=== PATIENT | female | born 1935 | race Caucasian/White ===

== ENCOUNTER 2022-08-12 15:45 | Inpatient (IN) | payer MEDICARE, MEDICAID ==
[~2022-08-12] VITALS: Ht 170 cm; Wt 41.2 kg
[2022-08-12] MEDS ORDERED: CEFEPIME INJECTION 1,000 MG in NS (IVPB) 50 ML IV ONE (16:00)
[2022-08-12] MEDS ORDERED: LIDOCAINE UROJET 2% GEL 10 ML PKG TOP ONE (16:00)
[2022-08-12] MEDS ORDERED: LACTATED RINGERS 1,000 ML IV ONE (16:00)
--- NOTE | 2022-08-12 16:09 | ED General ---
General Chief Complaint: Altered Mental Status Stated Complaint: AMS Nursing Triage Note: PT ARRIVED PER EMS, PT WOULD NOT ANSWER DOOR, KNOCK DOWN BY MAINTANANCE MAN. PT WAS CONFUSED UPON EMS ARRIVAL, PT O2 SAT 88% UPON EMS ARRIVAL. PT MORE ALERT UPON ARRIVAL TO ED. FSBS 123 FOR EMS. PT HAS COURSE COUGH AND SOME WHEEZING NOTED. PT IS A DAILY SMOKER Source of Information: EMS Exam Limitations: Other (PT IS CONFUSED AND UNABLE TO GIVE MUCH INFORMATION) History of Present Illness Date Seen by Provider: Aug 12, 2022 Time Seen by Provider: 15:40 Initial Comments PT ARRIVES VIA EMS FROM HOME AT [facility] PT LIVES ALONE EMS REPORT THAT THEY WERE CALLED TO [facility]ENCE FOR PT WITH ALTERED MENTAL STATUS. ON THEIR ARRIVAL, PT WAS NOT ABLE TO ANSWER ANY QUESTIONS AND WAS NOT REALLY TALKING ON THEIR ARRIVAL PER EMS, THE SCRAP PICKER AT PT'S COMPLEX, KNOCKED ON PT'S DOOR AND SHE WOULD NOT ANSWER. THEY EVENTUALLY WERE ABLE TO KNOCK DOWN THE DOOR, AND FOUND PT WITH VERY ALTERED MENTATION--CONFUSED, NOT TALKING, NOT FOLLOWING COMMANDS. LAST KNOWN WELL TIME IS UNKNOWN. EMS REPORT THAT O2 SAT WAS 88% ON ROOM AIR, AND DIPPED DOWN TO 77% AT ONE POINT VITALS FOR EMS: BP 99/58, PULSE 80 ACCUCHECK 123 EMS REPORT THEY DID NOT SEE ANY MEDICATIONS IN THE HOME, AND THE HOME WAS WELL KEPT. EMS REPORT THAT PT COULD NOT STATE HER NAME OR BIRTHDATE, OR TIME OR PLACE WHEN THEY ARRIVED AT SCENE. ON ARRIVAL HERE, PT WAS PLACED ON O2, AND SHE DID SEEM TO HAVE SOME IMPROVEMENT IN MENTATION, AND IS NOW TALKING SHE IS ABLE TO STATE HER NAME AND BIRTHDATE KNOWS SHE LIVES AT [facility]. PT ARRIVES FULLY CLOTHED WITH A BRIEF IN PLACE, BUT HAS DRIED FECES AND URINE ALL IN ER GENITAL AND BUTTOCKS AREAS AND DOWN HER LEGS, ON HER CLOTHING, AND IS WEARING A NIGHTGOWN THAT IS COVERED IN URINE AND FECES, OVER HER PANTS AND ONLY PULLED UP TO HER WAIST LIKE A SKIRT/SLIP. SHE IS NOTED TO HAVE A FREQUENT LOOSE COUGH ON ARRIVAL. SHE IS NOT ABLE TO STATE ANY EVENTS OR WHY SHE IS HERE OR GIVE ANY MEDICAL INFORMATION THERE ARE NO PRIOR VISITS HERE UNDER THE GIVEN NAME AND DATE. Allergies and Home Medications Allergies Coded Allergies: No Allergy Information Available (Unverified , 08/12/22) Review of Systems Review of Systems Constitutional: see HPI Physical Exam Vital Signs Vital Signs - First Documented 08/12/22 15:45 Pulse 90 Resp 18 B/P (MAP) 116/73 (87) O2 Delivery Nasal Cannula O2 Flow Rate 2.00 Capillary Refill : Less Than 3 Seconds Height, Weight, BMI Height: '" Weight: lbs. oz. kg; 21.00 BMI Method: General Appearance: No Apparent Distress, Cachetic HEENT: PERRL/EOMI Respiratory: No Accessory Muscle Use, No Respiratory Distress, Other (DIFFUSE SCATTERED RHONCHI, BUT NOT DYSPNEIC) Cardiovascular: Regular Rate, Rhythm, No JVD, No Murmur Gastrointestinal: Non Tender, Soft Extremity: Normal Capillary Refill, Normal Range of Motion, Non Tender, No Pedal Edema Neurologic/Psychiatric: Alert, No Motor/Sensory Deficits (MOVES ALL EXTREMITIES EQUALLY, BUT DOES HAVE SOME DIFFICULTY FOLLOWING EVEN SIMPLE COMMANDS. ), Other (ORIENTED TO SELF, CONFUSED TO DATE/TIME, SITUATION, PLACE. ) Skin: Normal Color, Warm/Dry Focused Exam Lactate Level 08/12/22 16:05: Lactic Acid Level 1.91 Lactic Acid Level Laboratory Tests Test 08/12/22 16:05 Lactic Acid Level 1.91 MMOL/L (0.50-2.00) Progress/Results/Core Measures Suspected Sepsis SIRS Temperature: Pulse: 90 Respiratory Rate: 18 Laboratory Tests 08/12/22 16:05: White Blood Count 8.1 Blood Pressure 116 /73 Mean: 87 08/12/22 16:05: Lactic Acid Level 1.91 Laboratory Tests 08/12/22 16:05: Creatinine 1.05, INR Comment 1.0, Platelet Count 238, Total Bilirubin 0.6 Results/Orders Lab Results Laboratory Tests Test 08/12/22 16:01 08/12/22 16:03 08/12/22 16:05 08/12/22 16:35 Range/Units Glucometer 115 H 70-110 MG/DL Influenza Type A (RT-PCR) Not Detected Not Detecte Influenza Type B (RT-PCR) Not Detected Not Detecte SARS-CoV-2 RNA (RT-PCR) Detected H Not Detecte White Blood Count 8.1 4.3-11.0 10^3/uL Red Blood Count 4.55 3.80-5.11 10^6/uL Hemoglobin 13.9 11.5-16.0 g/dL Hematocrit 41 35-52 % Mean Corpuscular Volume 90 80-99 fL Mean Corpuscular Hemoglobin 31 25-34 pg Mean Corpuscular Hemoglobin Concent 34 32-36 g/dL Red Cell Distribution Width 14.4 10.0-14.5 % Platelet Count 238 130-400 10^3/uL Mean Platelet Volume 10.1 9.0-12.2 fL Immature Granulocyte % (Auto) 1 % Neutrophils (%) (Auto) 71 42-75 % Lymphocytes (%) (Auto) 14 12-44 % Monocytes (%) (Auto) 13 H 0-12 % Eosinophils (%) (Auto) 0 0-10 % Basophils (%) (Auto) 0 0-10 % Neutrophils # (Auto) 5.8 1.8-7.8 10^3/uL Lymphocytes # (Auto) 1.2 1.0-4.0 10^3/uL Monocytes # (Auto) 1.1 H 0.0-1.0 10^3/uL Eosinophils # (Auto) 0.0 0.0-0.3 10^3/uL Basophils # (Auto) 0.0 0.0-0.1 10^3/uL Immature Granulocyte # (Auto) 0.1 0.0-0.1 10^3/uL Erythrocyte Sedimentation Rate 79 H 0-30 MM/HR Prothrombin Time 13.9 12.2-14.7 SEC INR Comment 1.0 0.8-1.4 Activated Partial Thromboplast Time 33 24-35 SEC D-Dimer 2.70 H 0.00-0.49 UG/ML Sodium Level 143 135-145 MMOL/L Potassium Level 4.0 3.6-5.0 MMOL/L Chloride Level 106 98-107 MMOL/L Carbon Dioxide Level 23 21-32 MMOL/L Anion Gap 14 5-14 MMOL/L Blood Urea Nitrogen 35 H 7-18 MG/DL Creatinine 1.05 0.60-1.30 MG/DL Estimat Glomerular Filtration Rate 51 BUN/Creatinine Ratio 33 Glucose Level 115 H 70-105 MG/DL Lactic Acid Level 1.91 0.50-2.00 MMOL/L Calcium Level 9.7 8.5-10.1 MG/DL Corrected Calcium 9.8 8.5-10.1 MG/DL Magnesium Level 2.4 1.6-2.4 MG/DL Total Bilirubin 0.6 0.1-1.0 MG/DL Aspartate Amino Transf (AST/SGOT) 30 5-34 U/L Alanine Aminotransferase (ALT/SGPT) 22 0-55 U/L Alkaline Phosphatase 49 40-136 U/L Total Creatine Kinase 30 29-168 U/L Creatine Kinase MB 1.1 <6.6 NG/ML Myoglobin 106.9 H 10.0-92.0 NG/ML C-Reactive Protein High Sensitivity 23.02 H 0.00-0.50 MG/DL B-Type Natriuretic Peptide 173.8 H <100.0 PG/ML Total Protein 8.1 6.4-8.2 GM/DL Albumin 3.9 3.2-4.5 GM/DL Amylase Level 72 25-125 U/L Lipase 51 8-78 U/L Free Thyroxine 1.05 0.70-1.48 NG/DL TSH [place] Testing 0.12 L 0.35-4.94 UIU/ML Urine Color YELLOW Urine Clarity CLEAR Urine pH 6.0 5-9 Urine Specific [place] 1.025 H 1.016-1.022 Urine Protein 2+ H NEGATIVE Urine Glucose (UA) NEGATIVE NEGATIVE Urine Ketones NEGATIVE NEGATIVE Urine Nitrite NEGATIVE NEGATIVE Urine Bilirubin NEGATIVE NEGATIVE Urine Urobilinogen 0.2 < = 1.0 MG/DL Urine Leukocyte Esterase NEGATIVE NEGATIVE Urine RBC (Auto) 1+ H NEGATIVE Urine RBC NONE /HPF Urine WBC NONE /HPF Urine Squamous Epithelial Cells RARE /HPF Urine Crystals NONE /LPF Urine Bacteria NEGATIVE /HPF Urine Casts PRESENT /LPF Urine Hyaline Casts RARE /LPF Urine Mucus NEGATIVE /LPF Urine Culture Indicated CULTURE PENDING Test 08/12/22 16:55 Range/Units Ammonia 17 11-32 UMOL/L My Orders Orders - EDWIN JONES DO Accucheck Stat ONCE (08/12/22 15:49) Ed Iv/Invasive Line Start (08/12/22 15:49) Ekg Tracing (08/12/22 15:49) Catheter(Urinary) Insert & Ass 03,15 (08/12/22 15:49) O2 (08/12/22 15:49) Monitor-Rhythm Ecg Trace Only (08/12/22 15:49) Ct Head Wo-R/O Stroke (08/12/22 15:49) Chest 1 View, Ap/Pa Only (08/12/22 15:49) Amylase (08/12/22 15:49) Arterial Blood Gas (08/12/22 15:49) Bnp Jon (08/12/22 15:49) Cbc With Automated Diff (08/12/22 15:49) Comprehensive Metabolic Panel (08/12/22 15:49) Creatine Kinase (08/12/22 15:49) Creatine Kinase Mb (08/12/22 15:49) Hs C Reactive Protein (08/12/22 15:49) Fibrin Degradation Products (08/12/22 15:49) Lactic Acid Analyzer (08/12/22 15:49) Lipase (08/12/22 15:49) Magnesium (08/12/22 15:49) Protime With Inr (08/12/22 15:49) Partial Thromboplastin Time (08/12/22 15:49) Thyroid Analyzer (08/12/22 15:49) Ua Culture If Indicated (08/12/22 15:49) Blood Culture (08/12/22 15:49) Erythrocyte Sedimentation Rate (08/12/22 15:49) Myoglobin Serum (08/12/22 15:49) Troponin I Wilkinson (08/12/22 15:49) Ed Iv/Invasive Line Start (08/12/22 15:49) Lactated Ringers (Lr 1000 Ml Iv Solution (08/12/22 16:00) Covid 19 Inhouse Test (08/12/22 15:49) Sputum Culture (08/12/22 15:49) Urine Culture (08/12/22 15:49) Ed Iv/Invasive Line Start (08/12/22 15:49) Ed Iv/Invasive Line Start (08/12/22 15:49) Vital Signs Adult Sepsis Patie Q15M (08/12/22 15:49) O2 (08/12/22 15:49) Remove Rings In Anticipation O (08/12/22 15:49) Cefepime Injection (Maxipime Injection) (08/12/22 16:00) Catheter(Urinary) Insert & Ass 03,15 (08/12/22 15:49) Ekg Tracing (08/12/22 15:49) Nothing By Mouth (08/12/22 Dinner) Accucheck Stat ONCE (08/12/22 15:49) Ed Iv/Invasive Line Start (08/12/22 15:49) Ed Iv/Invasive Line Start (08/12/22 15:49) Vital Signs Stroke Patient Q15M (08/12/22 15:49) O2 (08/12/22 15:49) Intake & Output 06,14,22 (08/12/22 15:49) Dysphagia Screening Tool [id number] (08/12/22 15:49) Lipid Panel (08/13/22 06:00) Lidocaine 2% (Urojet) (Xylocaine Urojet) (08/12/22 16:00) Influenza A And B By Pcr (08/12/22 15:49) Isolation Central Supply Req (08/12/22 15:49) Ammonia (08/12/22 16:32) Ct Lani Chest/Noang Abd-Pelv W (08/12/22 16:57) Dexamethasone Injection (Decadron Inje (08/12/22 17:15) Free T4 (Free Thyroxine) (08/12/22 16:05) Iohexol Injection (Omnipaque 350 Mg/Ml 1 (08/12/22 17:45) Ns (Ivpb) (Sodium Chloride 0.9% Ivpb Bag (08/12/22 17:45) Ed Admission (Communication) (08/12/22 18:01) Medications Given in ED Current Medications Medications Dose Ordered Sig/Juan F Route Start Time Stop Time Status Last Admin Dose Admin Cefepime HCl 1000 mg/Sodium Chloride 50 ml @ 100 mls/hr ONCE ONCE IV 08/12/22 16:00 08/12/22 16:29 DC 08/12/22 16:35 100 MLS/HR Iohexol 100 ml ONCE ONCE IV 08/12/22 17:45 08/12/22 17:46 DC 08/12/22 17:40 70 ML Lactated Ringer's 1,000 ml @ 0 mls/hr Q0M ONCE IV 08/12/22 16:00 08/12/22 16:01 DC 08/12/22 16:24 1,000 MLS/HR Sodium Chloride 100 ml ONCE ONCE IV 08/12/22 17:45 08/12/22 17:46 DC 08/12/22 17:40 70 ML Vital Signs/I&O 08/12/22 08/12/22 15:45 15:45 Pulse 90 Resp 18 B/P (MAP) 116/73 (87) O2 Delivery Nasal Cannula O2 Flow Rate 2.00 Capillary Refill : Less Than 3 Seconds Blood Pressure Mean: 87 Progress Note : Progress Note PPE WORN COVID AND FLU TESTING DONE SEPSIS PROTOCOL INITIATED STROKE PROTOCOL INITIATED UNABLE TO OBTAIN ABG'S ON MULTIPLE ATTEMPTS 1645--RN HAS ADVISED THAT FAMILY HAVE ARRIVED AND SHE HAS TALKED WITH THEM, THEY REPORT THAT SHE HAS NOT BEEN HERSELF THE LAST COUPLE OF DAYS, WITH GENERALIZED WEAKNESS, HAD DIARRHEA ONCE. THEY CHECK ON HER FREQUENTLY. SHE ADVISED THEM THAT PT WAS COVID +, AND PT COULD NOT HAVE VISITORS AT THIS TIME, PER HOSPITAL POLICY. ECG Initial ECG Impression Date: Aug 12, 2022 Initial ECG Impression Time: 16:06 Initial ECG Rate: 78 Initial ECG Rhythm: Normal Sinus (WITH MUCH ARTIFACT) Initial ECG Impression: Nonspecific Changes (ST DEPRESSION INFERIOR AND LATERAL LEADS) Initial ECG Comparisson: No Previous ECG Available Comment INTERPRETED BY ME Diagnostic Imaging Comments CXR--PER RADIOLOGIST REPORT AT 1705 FINDINGS: There are diffuse interstitial opacities throughout the lungs bilaterally. There is no pleural effusion or pneumothorax. The cardiac silhouette is mildly large. Lung volumes are mildly large. Bone density is diffusely low. There is aortic atherosclerosis. IMPRESSION: 1. Diffuse interstitial opacities in the lungs bilaterally, may be due to interstitial edema or infection. Reviewed: Reviewed by Me Departure Impression Primary Impression: COVID-19 virus infection Additional Impression: Altered mental status EDWIN JONES DO Aug 12, 2022 16:09
[2022-08-12 16:24] LABS: BASOPHILS % (AUTO) 0 % (0-10); EOSINOPHILS % (AUTO) 0 % (0-10); HEMATOCRIT 41 % (35-52); HEMOGLOBIN 13.9 g/dL (11.5-16.0); LYMPHOCYTES # (AUTO) 1.2 10^3/uL (1.0-4.0); LYMPHOCYTES % (AUTO) 14 % (12-44); MEAN CORPUSCULAR HEMOGLOBIN 31 pg (25-34); MEAN CORPUSCULAR HGB CONC 34 g/dL (32-36); MEAN CORPUSCULAR VOLUME 90 fL (80-99); MEAN PLATELET VOLUME 10.1 fL (9.0-12.2); MONOCYTES # (AUTO) 1.1 10^3/uL (0.0-1.0); MONOCYTES % (AUTO) 13 % (0-12); NEUTROPHILS # (AUTO) 5.8 10^3/uL (1.8-7.8); NEUTROPHILS % (AUTO) 71 % (42-75); PLATELET COUNT 238 10^3/uL (130-400); WHITE BLOOD COUNT 8.1 10^3/uL (4.3-11.0)
[2022-08-12 16:38] LABS: ERYTHROCYTE SEDIMENTATION RATE 79 MM/HR (0-30)
[2022-08-12 16:41] LABS: BILIRUBIN,URINE NEGATIVE (NEGATIVE); CLARITY,URINE CLEAR; COLOR,URINE YELLOW; GLUCOSE, URINE (UA) NEGATIVE (NEGATIVE); KETONES,URINE NEGATIVE (NEGATIVE); LEUKOCYTE ESTERASE ,URINE NEGATIVE (NEGATIVE); NITRITE,URINE NEGATIVE (NEGATIVE); PROTEIN,URINE 2+ (NEGATIVE)
[2022-08-12 16:43] LABS: FIBRIN DEGRADATION PRODUCTS 2.7 UG/ML (0.00-0.49); PROTHROMBIN TIME PATIENT 13.9 SEC (12.2-14.7)
[2022-08-12 16:47] LABS: ALBUMIN 3.9 GM/DL (3.2-4.5)
[2022-08-12 16:49] LABS: CALCIUM 9.7 MG/DL (8.5-10.1)
[2022-08-12 16:50] LABS: TOTAL PROTEIN 8.1 GM/DL (6.4-8.2)
[2022-08-12 16:52] LABS: BILIRUBIN,TOTAL 0.6 MG/DL (0.1-1.0)
[2022-08-12 16:53] LABS: BACTERIA,URINE NEGATIVE /HPF; HYALINE CASTS, URINE RARE /LPF; SQUAMOUS EPITHELIAL CELL,UR RARE /HPF
[2022-08-12 16:54] LABS: CREATININE SERUM 1.05 MG/DL (0.60-1.30)
[2022-08-12 16:56] LABS: MAGNESIUM 2.4 MG/DL (1.6-2.4)
--- NOTE | 2022-08-12 16:57 | Diagnostic Imaging Report ---
HISTORY: Altered mental status, cough, hypoxia. TECHNIQUE: Frontal view of the chest. COMPARISON: None. FINDINGS: There are diffuse interstitial opacities throughout the lungs bilaterally. There is no pleural effusion or pneumothorax. The cardiac silhouette is mildly large. Lung volumes are mildly large. Bone density is diffusely low. There is aortic atherosclerosis. IMPRESSION: 1. Diffuse interstitial opacities in the lungs bilaterally, may be due to interstitial edema or infection. Dictated by: Dictated on workstation # [id number]
[2022-08-12 17:05] LABS: CREATINE KINASE MB 1.1 NG/ML (<6.6)
[2022-08-12 17:18] LABS: TSH (THYROID ANALYZER) 0.12 UIU/ML (0.35-4.94)
--- NOTE | 2022-08-12 17:43 | Diagnostic Imaging Report ---
PROCEDURE: CT head wo r/o stroke. TECHNIQUE: Multiple contiguous axial images were obtained through the brain without the use of intravenous contrast. Auto Exposure Controls were utilized during the CT exam to meet ALARA standards for radiation dose reduction. INDICATION: Neurologic deficit. COMPARISON: Altered mental status. COVID positive. FINDINGS: Advanced generalized parenchymal volume loss. No intracranial hemorrhage, mass effect, hydrocephalus, or extra-axial fluid collections. No CT evidence of an acute territorial infarction. Air-fluid level in the left maxillary sinus. Mucosal thickening throughout the ethmoid sinuses. The mastoids are clear. IMPRESSION: 1. No acute intracranial CT findings. 2. Advanced generalized parenchymal volume loss. 3. Air-fluid level in the left maxillary sinus and mucosal thickening in the ethmoid sinuses suggesting acute sinusitis. Dictated by: Dictated on workstation # [id number]
[2022-08-12] MEDS ORDERED: IOHEXOL 350 MG/ML 100 ML (OMNIPAQUE 350) VIAL IV ONE (17:45)
[2022-08-12] MEDS ORDERED: NS 100 ML (IVPB) BAG IV ONE (17:45)
[2022-08-12 17:50] LABS: FREE T4 (FREE THYROXINE) 1.05 NG/DL (0.70-1.48)
--- NOTE | 2022-08-12 17:53 | Diagnostic Imaging Report ---
EXAM: CTA chest, abdomen and pelvis INDICATION: COVID+, DIARRHEA, ELEV D-DIMER, HYPOXIA Thin axial sections through the chest, abdomen and pelvis are obtained following intravenous contrast bolus. Multiplanar MIP images were reconstructed and reviewed. All CT scans use one or more of the following dose optimizing techniques: automated exposure control, MA and/or KvP adjustment based on patient size and exam type or iterative reconstruction. COMPARISON: None. FINDINGS: CTA CHEST: No pulmonary artery filling defects. Normal-caliber thoracic aorta. Normal heart size. No pericardial effusion. No mediastinal, hilar or axillary lymphadenopathy. Advanced emphysema. Dense consolidation in the right upper lobe containing air bronchograms. There is also dense consolidation in the left lung apex and left lung base. No pleural effusion or pneumothorax. No acute osseous findings. CT ABDOMEN AND PELVIS: Benign hemangioma in the right hepatic lobe measuring up to 3.4 cm. The gallbladder, pancreas, spleen, adrenals, collecting systems are negative. Urinary bladder is decompressed by Cuevas catheter. Reproductive structures are grossly negative. Small cysts in both kidneys are too small to characterize. The appendix is normal. No free intraperitoneal air or fluid. No lymphadenopathy. No evidence of bowel obstruction. No acute osseous findings. IMPRESSION: 1. No pulmonary emboli. 2. Multifocal regions of dense consolidation including the lung apices bilaterally and the left lung base. Findings are most suspicious for pneumonitis. However, malignancy cannot entirely be excluded and follow-up to resolution is recommended. 3. Advanced emphysema. 4. No acute CT findings in the abdomen or pelvis. Dictated by: Dictated on workstation # [id number]
[2022-08-12] MEDS ORDERED: CALCIUM CARBONATE 500 MG (TUMS) TAB.CHEW PO PRN (18:45)
[2022-08-12] MEDS ORDERED: ONDANSETRON 4 MG/2 ML (SDV) Z0FRAN IV PRN (18:45)
[2022-08-12] MEDS ORDERED: ENOXAPARIN 40 MG/0.4 ML (LOVENOX) SYR SC SCH (18:45)
[2022-08-12] MEDS ORDERED: ONDANSETRON 4 MG (ZOFRAN) ORAL DISSOLVE TAB PO PRN (18:45)
[2022-08-12] MEDS ORDERED: ACETAMINOPHEN 325 MG TABLET PO PRN (18:45)
[2022-08-12] MEDS ORDERED: BISACODYL 10 MG SUPP (DULCOLAX) PR PRN (18:45)
[2022-08-12] MEDS ORDERED: LACTULOSE SYRUP 10GM/15ML (ENULOSE) 30ML UDC PO PRN (18:45)
[2022-08-12] MEDS ORDERED: polyethylene glycoL POWDER 17 GM (MIRALAX) PACK PO PRN (18:45)
[2022-08-12] MEDS ORDERED: NICOTINE 14 MG (NICODERM) PATCH TD NR (18:45)
[2022-08-12] MEDS ORDERED: MILK OF MAGNESIA 400 MG/5 ML 30 ML UDC PO PRN (18:45)
[2022-08-12] MEDS ORDERED: NS IV 500 ML 500 ML IV PRN (18:45)
[2022-08-12] MEDS ORDERED: ANTACID SUSP 30 ML UDC (MYLANTA) PO PRN (18:45)
[2022-08-12] MEDS ORDERED: MELATONIN 3 MG TABLET PO PRN (18:45)
[2022-08-12 20:03] VITALS: BP 120/67
[2022-08-12] MEDS: SENNOSIDES 8.6 MG (SENOKOT) TAB PO SCH (20:34)
[2022-08-12] MEDS: DOCUSATE SODIUM 100 MG (COLACE) CAP PO SCH (20:34)
[2022-08-12] MEDS: ENOXAPARIN INJECTION 30 MG/0.3 ML SYR SC SCH (21:09)
[2022-08-13 00:53] VITALS: BP 101/58
[2022-08-13 04:58] VITALS: BP 125/72
[2022-08-13 06:05] LABS: BASOPHILS % (AUTO) 0 % (0-10); EOSINOPHILS % (AUTO) 0 % (0-10); HEMATOCRIT 36 % (35-52); HEMOGLOBIN 12.3 g/dL (11.5-16.0); LYMPHOCYTES % (AUTO) 17 % (12-44); MEAN CORPUSCULAR HEMOGLOBIN 31 pg (25-34); MEAN CORPUSCULAR HGB CONC 34 g/dL (32-36); MEAN CORPUSCULAR VOLUME 91 fL (80-99); MEAN PLATELET VOLUME 10.3 fL (9.0-12.2); MONOCYTES # (AUTO) 0.4 10^3/uL (0.0-1.0); MONOCYTES % (AUTO) 7 % (0-12); NEUTROPHILS # (AUTO) 4.2 10^3/uL (1.8-7.8); NEUTROPHILS % (AUTO) 74 % (42-75); PLATELET COUNT 217 10^3/uL (130-400); WHITE BLOOD COUNT 5.7 10^3/uL (4.3-11.0)
[2022-08-13 06:27] LABS: CALCIUM 8.9 MG/DL (8.5-10.1); CREATININE SERUM 0.8 MG/DL (0.60-1.30); MAGNESIUM 2.2 MG/DL (1.6-2.4)
[2022-08-13] MEDS: POTASSIUM CL 10MEQ/50ML IVPB 50 ML IV SCH (06:31)
[2022-08-13] MEDS: POTASSIUM BICARB 20 MEQ (EFFER-K) TABLET PO SCH (06:31)
[2022-08-13] MEDS: MAGNESIUM 1 GM/100 ML IVPB 100 ML IV SCH (06:31)
[2022-08-13] MEDS: KCL 20 MEQ TAB (K-DUR) PO SCH (06:31)
[2022-08-13] MEDS: dexAMETHasone 6 MG TAB (DECADRON) PO SCH (06:43)
[2022-08-13] MEDS: SENNOSIDES 8.6 MG (SENOKOT) TAB PO SCH ×2 (07:27→21:03)
[2022-08-13] MEDS: DOCUSATE SODIUM 100 MG (COLACE) CAP PO SCH ×2 (07:27→21:03)
[2022-08-13 07:37] VITALS: BP 143/71
[2022-08-13] MEDS: NICOTINE PATCH REMOVAL TP SCH (07:41)
[2022-08-13] MEDS: NICOTINE 14 MG (NICODERM) PATCH TD SCH (07:42)
[2022-08-13] MEDS: RT-ALBUTEROL HFA 8.5 GM INHALER IH SCH ×3 (09:51→21:19)
[2022-08-13 11:29] VITALS: BP 150/70
--- NOTE | 2022-08-13 12:16 | History & Physical-Hospitalist ---
History of Present Illness HPI/Chief Complaint Francine Ramsay is an 87 year old female with PMH COPD, tobacco abuse, who presented with altered mental status. She says she didn't want to come to the hospital. She says the manager of maintenance called an ambulance. She was reportedly not responding and not talking when EMS arrived. She was not able to provide any history upon arrival to the ER. Her mental status did begin to improve and she was able to tell them her name. Upon my exam, she is alert and oriented. She is able to tell me her name, that we are at the hospital, and that it is 2022. She says it is July, and I let her know that today is August 13. She denies any complaints at this time and wants to go home. She denies fevers and chills. She denies shortness of breath. She does not use oxygen at home. She smokes but says it isn't much. She is unvaccinated for COVID. She says her doctor had told her not to get vaccines. She has not seen a doctor in many years and does not take any medications regularly. She is unsure how she got COVID. She says all her visitors wear masks and she doesn't go anywhere. Source: patient, RN/MD Exam Limitations: no limitations Date Seen 08/13/22 Time Seen by a Provider: 10:45 Attending Physician Mayra,Local Physician PCP Admitting Physician: Faustino Jimenez MD Attending Physician: Faustino Jimenez MD Referring Physician Date of Admission Aug 12, 2022 at 18:02 Home Medications & Allergies Home Medications Reviewed patient Home Medication Reconciliation performed by pharmacy medication reconciliations refrigerating technician and/or nursing. Patients Allergies have been reviewed. Allergies Allergies Coded Allergies No Allergy Information Available (Unverified08/12/22) Past Vpgepmi-Ehbbhv-Vaaepj Hx Patient Social History Tobacco Use?: Yes Tobacco type used: Cigarettes Smoking Status: Current Everyday Smoker Use of E-Cig and/or Vaping dev: No Substance use?: No Alcohol Use?: No Pt feels they are or have been: No Current Status status: No status: No Advance Directives: No Communicates: Verbally Primary Language: Qatari Preferred Spoken Language: Qatari Is interpretation needed?: No Sensory deficits: Vision impairment Past Medical History COPD Family Medical History No Pertinent Family Hx Review of Systems Constitutional: no symptoms reported EENTM: no symptoms reported Respiratory: no symptoms reported Cardiovascular: no symptoms reported Gastrointestinal: no symptoms reported Physical Exam Physical Exam Vital Signs Vital Signs - First Documented 08/12/22 08/12/22 15:45 18:20 Temp 37.1 Pulse 90 Resp 18 B/P (MAP) 116/73 (87) Pulse Ox 96 O2 Delivery Nasal Cannula O2 Flow Rate 2.00 Capillary Refill : Less Than 3 Seconds Height, Weight, BMI Height: '" Weight: lbs. oz. kg; 14.25 BMI Method: General Appearance: No Apparent Distress, Chronically ill, Cachetic HEENT: PERRL/EOMI, Pharynx Normal Neck: Normal Inspection, Supple Respiratory: No Respiratory Distress, Decreased Breath Sounds Cardiovascular: Regular Rate, Rhythm, No Edema, No Murmur Gastrointestinal: Normal Bowel Sounds, Non Tender, Soft Extremity: Normal Inspection, No Pedal Edema Neurologic/Psychiatric: Alert, Oriented x3, Normal Mood/Affect Skin: Warm/Dry, Pallor Results Results/Procedures Labs Laboratory Tests 08/12/22 16:05 08/13/22 05:00 Patient resulted labs reviewed. Imaging: Reviewed Imaging Films, Reviewed Imaging Report Assessment/Plan Admission Diagnosis Acute respiratory failure due to COVID-19 Admission Status: Inpatient Order (span 2 midnights) Reason for Inpatient Admission: Respiratory failure Assessment and Plan Acute respiratory failure due to COVID-19 Delirium Elevated troponin COPD Cachexia Low TSH Advanced age Goals of care discussion COVID+ on arrival 08/12 Not septic, no evidence of bacterial pneumonia on imaging Supplemental oxygen as needed Decadron MAT protocol Troponin likely elevated due to hypoxia, no chest pain TSH low, T4 normal, likely euthyroid sick syndrome with acute illness PT/OT Remove rapp Ensure DNR on arrival, discussed with ER physician and patient DVT prophylaxis: Lovenox Diagnosis/Problems Diagnosis/Problems (1) Acute respiratory failure due to COVID-19 Status: Acute (2) Delirium due to another medical condition Status: Acute (3) VERONICA (acute kidney injury) Status: Acute (4) COPD (chronic obstructive pulmonary disease) Status: Chronic (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
--- NOTE | 2022-08-13 13:14 | Occupational Therapy Eval ---
OT Evaluation-General/PLF Medical Diagnosis Admission Date Aug 12, 2022 at 18:02 Medical Diagnosis: Covid, ARF, delirium Onset Date: Aug 12, 2022 Therapy Diagnosis Therapy Diagnosis: weakness, confusion, unsteady balance Precautions Precautions/Isolations: Airborne Isolation, Contact Isolation Weight Bear Status Weight Bearing Restriction: Weight Bearing/Tolerated Referral Referral Reason: Evaluation/Treatment Medical History Pertinent Medical History: COPD Current History Found down in apartment, EMS called, ER admit Reviewed History: Yes Social History Home: Apartment Current Living Status: Alone Steps Into Home: 0 (unknown) ADL-Prior Level of Function SCALE: Activities may be completed with or without assistive devices. 5-Dvdnpsrjkc-oeuowwr completes the activity by him/herself with no assistance from a helper. 5-Set-up or Clean-up Assistance-helper sets up or cleans up; patient completes activity. [place] assists only prior to or following the activity. 4-Supervision or Touching Assistance-helper provides verbal cues and/or touching/steadying and/or contact guard assistance as patient completes a ctivity. Assistance may be provided throughout the activity or intermittently. 3-Partial/Moderate Assistance-helper does LESS THAN HALF the effort. [place] lifts, holds or supports trunk or limbs, but provides less than half the effort. 2-Substantial/Maximal Assistance-helper does MORE THAN HALF the effort. [place] lifts or holds trunk or limbs and provides more than half the effort. 2-Ekoqxefgk-fricyw does ALL the effort. Patient does none of the effort to complete the activity. Or, the assistance of 2 or more helpers is required for the patient to complete the activity. If activity was not attempted, code reason: 7-Patient Refused. 9-Not Applicable-not attempted and the patient did not perform the activity before the current illness, exacerbation or injury. 10-Not Attempted due to Environmental Limitations-(lack of equipment, weather restraints, etc.). 88-Not Attempted due to Medical Conditions or Safety Concerns. ADL PLOF Comments BM incontinent at evaluation, PLOF provided by patient . 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 OT Current Status Subjective On arrival patient assisted by x2 for BM incontinence, patient agrees to OT intervention and evaluation Pain Numeric Pain Scale: 0-No Pain Mental Status/Objective Patient Orientation: Person, Place, Situation Attachments: Oxygen Current Upper Extremity ROM BUE ROM WFLS Upper Extremity Coordination WFLS Upper Extremity Sensation WFLS Upper Extremity Strength +3/5 BUE ADL-Treatment ADL-Current Easily distracted and needs redirection to attend to task Eating (QC): 6 Oral Hygiene (QC): 4 Shower/Bathe Self (QC): 88 Upper Body Dressing (QC): 3 Lower Body Dressing (QC): 1 (2 person) On/Off Footwear (QC): 4 Toileting Hygiene (QC): 1 Unsteady balance, delayed following instruction to stand, posterior lean, shoot pivot does not lift feet to side step Education OT Patient Education: Correct positioning, Disease process, Energy c onservation, Exercise program, Modified ADL techniques, Progress toward Goal/Update tx plan, Purpose of tx/functional activities, Reviewed precautions, Rehab process, Safety issues, Transfer techniques, Use of adapted equipment Teaching Recipient: Patient Teaching Methods: Demonstration, Discussion Response to Teaching: Unable to Comprehend, Reinforcement Needed OT Intermediate Goals Feeder Worker Power Unit Operator Goals Eating (QC): 6 Oral Hygiene (QC): 6 Toileting Hygiene (QC): 6 Shower/Bathe Self (QC): 5 Upper Body Dressing (QC): 6 Lower Body Dressing (QC): 6 On/Off Footwear (QC): 6 1=Demonstrate adherence to instructed precautions during ADL tasks. 2=Patient will verbalize/demonstrate understanding of assistive devices/modifications for ADL. 3=Patient will improve strength/tolerance for activity to enable patient to perform ADL's. OT Education/Plan Problem List/Assessment Assessment: Decreased Activ Tolerance, Decreased Safety Aware, Decreased UE Strength, Dependent Transfers, Impaired Bed Mobility, Impaired Cognition, Impaired Coordination, Impaired Funct Balance, Impaired Self-Care Skills Discharge Recommendations Plan/Recommendations: Continue POC Therapy Discharge Recommendati: Post Acute OT Treatment Plan/Plan of Care Treatment,Training & Education: Yes Patient would benefit from OT for education, treatment and training to promote independence in ADL's, mobility, safety and/or upper extremity function for ADL's. Plan of Care: ADL Retraining, Cognitive Retraining, Functional Mobility, Group Exercise/Act as Ind, UE Funct Exercise/Act Comment Up in chair w/ alarm set, extensive instruction for call light use, lunch tray in front of patient, all needs met Treatment Duration: Aug 23, 2022 Frequency: 3 times per week (3-5 times/week) Estimated Hrs Per Day: .25 hour per day Agreement: Yes Rehab Potential: Fair Time Start Time: 12:50 Stop Time: 13:08 DATE: Aug 13, 2022 Total Time Billed (hr/min): 18 Billed Treatment Time 1 visit EVM 1 18 min EBONY FLOWERS OT Aug 13, 2022 13:14
--- NOTE | 2022-08-13 14:23 | Physical Therapy Evaluation ---
PT Evaluation-General Medical Diagnosis Admission Date Aug 12, 2022 at 18:02 Medical Diagnosis: Covid, ARF, delirium Onset Date: Aug 12, 2022 Therapy Diagnosis Therapy Diagnosis: Gait deficit Precautions Precautions/Isolations: Airborne Isolation, Contact Isolation Weight Bear Status Right Lower Extremity: Right Full Weight Bearing Left Lower Extremity: Left Full Weight Bearing Referral Physician: Dr. Bundy Reason for Referral: Evaluation/Treatment Medical History Pertinent Medical History: COPD Reviewed History: Yes Social History Home: Apartment Current Living Status: Alone PT Steps Into Home: 0 (unknown) Prior Prior Level of Function SCALE: Activities may be completed with or without assistive devices. 3-Nfcrvpfhal-cmdbcxa completes the activity by him/herself with no assistance from a helper. 5-Set-up or Clean-up Assistance-helper sets up or cleans up; patient completes activity. [place] assists only prior to or following the activity. 4-Supervision or Touching Assistance-helper provides verbal cues and/or touching/steadying and/or contact guard assistance as patient completes activity. Assistance may be provided throughout the activity or intermittently. 3-Partial/Moderate Assistance-helper does LESS THAN HALF the effort. [place] lifts, holds or supports trunk or limbs, but provides less than half the effort. 2-Substantial/Maximal Assistance-helper does MORE THAN HALF the effort. [place] lifts or holds trunk or limbs and provides more than half the effort. 0-Koqsbddbv-suwbff does ALL the effort. Patient does none of the effort to complete the activity. Or, the assistance of 2 or more helpers is required for the patient to complete the activity. If activity was not attempted, code reason: 7-Patient Refused. 9-Not Applicable-not attempted and the patient did not perform the activity before the current illness, exacerbation or injury. 10-Not Attempted due to Environmental Limitations-(lack of equipment, weather restraints, etc.). 88-Not Attempted due to Medical Conditions or Safety Concerns. Bed Mobility: 6 Transfers (B,C,W/C): 6 Gait: 6 Indoor Mobility (Ambulation): Independent Stairs: Not [place] Prior Device Use: Cane PT Evaluation-Current Subjective Patient sitting in chair upon PT arrival, agreeable to treatment. Patient reports 0/10 pain. She is alert and oriented 3/3, however does not appear to fully understand what is going on. She denies being sick and reports "I just want to go home." Objective Patient Orientation: Person, Place, Time, Situation Attachments: Oxygen ROM/Strength ROM Lower Extremities WFLs bilaterally all planes. Strength Lower Extremities 3+/5 bilaterally all planes. Sensory Vision: Functional Hearing: Functional Sensation Right Lower Extremit: Intact Sensation Left Lower Extremity: Intact Transfers Sit to Stand (QC): 4 Chair/Erx-cc-Cqrgd Xfer(QC): 4 Gait Does the Patient Walk?: Yes Mode of Locomotion: Walk Anticipated Mode of Locomotion: Walk Walk 10 feet (QC): 3 Distance: 30 feet Gait Assistive Device: FWW Balance Sitting Static: Good Sitting Dynamic: Good Standing Static: Poor Standing Dynamic: Poor Assessment/Needs Patient tolerated treatment fair. She requires min/mod A for gait to stabilize balance as she tends to lean to the right at times. Patient on 4 L O2, at 87% upon returning to the chair. Patient continuously talks while attempting to return to O2 levels above 90%. When she was able to understand why she had to stop talking, her O2 sats increased to 94% within 5-10 seconds. Patient ambulates 30 feet in the room with FWW, with min/mod A and verbal cues for safety, progression, balance and use of the FWW. Patient in chair post treatment with all needs met, nursing notified, call light in reach and chair alarm activated. Rehab Potential: Fair PT Psychiatric Nursing Aide Goals Psychiatric Nursing Aide Goals PT Psychiatric Nursing Aide Goals Time Frame: Sep 06, 2022 Roll Left & Right (QC): 6 Sit to Lying (QC): 6 Lying-Sitting on Side/Bed(QC): 6 Sit to Stand (QC): 6 Chair/Wni-jy-Coeeu Xfer(QC): 6 Toilet Transfer (QC): 6 Does the Patient Walk: Yes Walk 10 feet (QC): 6 Walk 50ft with 2 Turns (QC): 6 Walk 150 ft (QC): 6 PT Plan Problem List Problem List: Activity Tolerance, Functional Strength, Safety, Balance, Gait, Transfer, Bed Mobility, ROM Treatment/Plan Treatment Plan: Continue Plan of Care Treatment Plan: Bed Mobility, Education, Functional Activity Pj, Functional Strength, Gait, Safety, Therapeutic Exercise, Transfers Treatment Duration: Sep 12, 2022 Frequency: 6 times per week Estimated Hrs Per Day: .25 hour per day Patient and/or Family Agrees t: Yes Safety Risks/Education Patient Education: Gait Training, Transfer Techniques Teaching Recipient: Patient Teaching Methods: Demonstration, Discussion Response to Teaching: Reinforcement Needed Time Time In: 1340 Time Out: 1405 DATE: Aug 13, 2022 Total Billed Treatment Time: 25 Total Billed Treatment Visit, Reese Peres JOHN A PT Aug 13, 2022 14:23
[2022-08-13 15:51] VITALS: BP 129/70
[2022-08-13] MEDS: ENOXAPARIN INJECTION 30 MG/0.3 ML SYR SC SCH (18:39)
[2022-08-13 19:12] VITALS: BP 105/61
[2022-08-13] MEDS ORDERED: NS (IVPB) 250 ML IV ONE (20:45)
[2022-08-13] MEDS ORDERED: NS (IVPB) 250 ML ONE (20:58)
[2022-08-13] MEDS ORDERED: NS IV 1000 ML 1,000 ML ONE (20:58)
[2022-08-13] MEDS: NS IV 1000 ML 1,000 ML IV SCH (21:02)
[2022-08-14] VITALS: BP 121/69
[2022-08-14] MEDS: RT-ALBUTEROL HFA 8.5 GM INHALER IH SCH ×4 (02:59→20:23)
[2022-08-14 03:02] VITALS: BP 110/62
[2022-08-14] MEDS: dexAMETHasone 6 MG TAB (DECADRON) PO SCH (05:14)
[2022-08-14 05:28] LABS: BASOPHILS % (AUTO) 0 % (0-10); EOSINOPHILS % (AUTO) 0 % (0-10); HEMATOCRIT 33 % (35-52); HEMOGLOBIN 11.3 g/dL (11.5-16.0); LYMPHOCYTES # (AUTO) 0.7 10^3/uL (1.0-4.0); LYMPHOCYTES % (AUTO) 5 % (12-44); MEAN CORPUSCULAR HEMOGLOBIN 31 pg (25-34); MEAN CORPUSCULAR HGB CONC 34 g/dL (32-36); MEAN CORPUSCULAR VOLUME 91 fL (80-99); MONOCYTES # (AUTO) 1.1 10^3/uL (0.0-1.0); MONOCYTES % (AUTO) 8 % (0-12); NEUTROPHILS # (AUTO) 11.6 10^3/uL (1.8-7.8); NEUTROPHILS % (AUTO) 86 % (42-75); PLATELET COUNT 234 10^3/uL (130-400); WHITE BLOOD COUNT 13.5 10^3/uL (4.3-11.0)
[2022-08-14 05:47] LABS: POTASSIUM 3.4 MMOL/L (3.6-5.0)
[2022-08-14 05:48] LABS: CALCIUM 8.6 MG/DL (8.5-10.1)
[2022-08-14 05:53] LABS: CREATININE SERUM 0.84 MG/DL (0.60-1.30)
[2022-08-14] MEDS: POTASSIUM CL 10MEQ/50ML IVPB 50 ML IV SCH (05:56)
[2022-08-14] MEDS: POTASSIUM BICARB 20 MEQ (EFFER-K) TABLET PO SCH (05:57)
[2022-08-14] MEDS: KCL 20 MEQ TAB (K-DUR) PO SCH (05:59)
[2022-08-14] MEDS: MAGNESIUM 1 GM/100 ML IVPB 100 ML IV SCH (06:01)
[2022-08-14 06:09] LABS: LYMPHOCYTES % (MANUAL) 7 %; MONOCYTES % (MANUAL) 8 %; NEUTROPHILS % (MANUAL) 85 %
[2022-08-14 06:10] LABS: RBC MORPH NORMAL
[2022-08-14 07:44] VITALS: BP 107/70
[2022-08-14] MEDS: DOCUSATE SODIUM 100 MG (COLACE) CAP PO SCH ×2 (08:00→21:56)
[2022-08-14] MEDS: SENNOSIDES 8.6 MG (SENOKOT) TAB PO SCH ×2 (08:01→21:56)
[2022-08-14] MEDS: NICOTINE 14 MG (NICODERM) PATCH TD SCH (08:10)
[2022-08-14] MEDS: NICOTINE PATCH REMOVAL TP SCH (08:10)
[2022-08-14] MEDS ORDERED: KCL 20 MEQ TAB (K-DUR) PO ONE (09:00)
--- NOTE | 2022-08-14 10:13 | Occupational Ther Daily Note ---
OT Current Status-Daily Note Subjective Awake, eyes open in bed, agrees to therapy Mental Status/Objective Patient Orientation: Person, Confused Remains confused however consistent w/ a man making her come to the hospital and her not opening the door until she changed from her sleep gown. ADL-Treatment Therapy Code Descriptions/Definitions Functional [place] Measure: 0=Not Assessed/NA 4=Minimal Assistance 1=Total Assistance 5=Supervision or Setup 2=Maximal Assistance 6=Modified [place] 3=Moderate Assistance 7=Complete IndependenceSCALE: Activities may be completed with or without assistive devices. 3-Ejksswjyqe-bbrgghr completes the activity by him/herself with no assistance from a helper. 5-Set-up or Clean-up Assistance-helper sets up or cleans up; patient completes activity. [place] assists only prior to or following the activity. 4-Supervision or Touching Assistance-helper provides verbal cues and/or touching/steadying and/or contact guard assistance as patient completes activity. Assistance may be provided throughout the activity or intermittently. 3-Partial/Moderate Assistance-helper does LESS THAN HALF the effort. [place] lifts, holds or supports trunk or limbs, but provides less than half the effort. 2-Substantial/Maximal Assistance-helper does MORE THAN HALF the effort. [place] lifts or holds trunk or limbs and provides more than half the effort. 7-Hdnkvytbz-rkpknc does ALL the effort. Patient does none of the effort to complete the activity. Or, the assistance of 2 or more helpers is required for the patient to complete the activity. If activity was not attempted, code reason: 7-Patient Refused. 9-Not Applicable-not attempted and the patient did not perform the activity before the current illness, exacerbation or injury. 10-Not Attempted due to Environmental Limitations-(lack of equipment, weather restraints, etc.). 88-Not Attempted due to Medical Conditions or Safety Concerns. Eating (QC): 4 Oral Hygiene (QC): 7 Shower/Bathe Self (QC): 88 (confusion) Upper Body Dressing (QC): 3 Lower Body Dressing (QC): 3 On/Off Footwear: 3 Toileting Hygiene (QC): 3 Toilet Transfer (QC): 4 Education OT Patient Education: Modified ADL techniques, Progress toward Goal/Update tx plan, Purpose of tx/functional activities, Reviewed precautions, Rehab process, Safety issues, Transfer techniques Teaching Recipient: Patient Teaching Methods: Demonstration, Discussion Response to Teaching: Reinforcement Needed OT Concession Worker Goals Concession Worker Goals Eating (QC): 6 Oral Hygiene (QC): 6 Toileting Hygiene (QC): 6 Shower/Bathe Self (QC): 5 Upper Body Dressing (QC): 6 Lower Body Dressing (QC): 6 On/Off Footwear (QC): 6 1=Demonstrate adherence to instructed precautions during ADL tasks. 2=Patient will verbalize/demonstrate understanding of assistive devices/modifications for ADL. 3=Patient will improve strength/tolerance for activity to enable patient to perform ADL's. OT Education/Plan Problem List/Assessment Assessment: Decreased Activ Tolerance, Decreased Safety Aware, Decreased UE Strength, Impaired Cognition, Impaired Coordination, Impaired Funct Balance, Impaired Self-Care Skills Discharge Recommendations Plan/Recommendations: Continue POC Treatment Plan/Plan of Care Treatment,Training & Education: Yes Patient would benefit from OT for education, treatment and training to promote independence in ADL's, mobility, safety and/or upper extremity function for ADL's. Plan of Care: ADL Retraining, Cognitive Retraining, Functional Mobility, Group Exercise/Act as Ind, UE Funct Exercise/Act Treatment Duration: Aug 23, 2022 Frequency: 3 times per week (3-5 times/week) Estimated Hrs Per Day: .25 hour per day Agreement: Yes Rehab Potential: Fair Remains upright in recliner w/ breakfast on tray table, chair alarm and call light needs met Time Start Time: 08:55 Stop Time: 09:12 DATE: Aug 14, 2022 Total Time Billed (hr/min): 17 Billed Treatment Time 1 ADL 1 17 min EBONY FLOWERS OT Aug 14, 2022 10:13
--- NOTE | 2022-08-14 10:14 | Physical Therapy Daily Note ---
PT Daily Note-Current Subjective Patient just complete with OT. Pain Section J - Health Conditions 1. Rarely or not at all 2. Occasionally 3. Frequently 4. Almost constantly 8. Unable to answer Pain Effect on Sleep: 8 Pain Interference with Therapy: 8 Pain Interference w/Day-to-Day: 8 Mental Status Patient Orientation: Confused Attachments: Oxygen, IV Transfers SCALE: Activities may be completed with or without assistive devices. 6-Omgsblquun-yjwbzdo completes the activity by him/herself with no assistance from a helper. 5-Set-up or Clean-up Assistance-helper sets up or cleans up; patient completes activity. [place] assists only prior to or following the activity. 4-Supervision or Touching Assistance-helper provides verbal cues and/or touching/steadying and/or contact guard assistance as patient completes activity. Assistance may be provided throughout the activity or intermittently. 3-Partial/Moderate Assistance-helper does LESS THAN HALF the effort. [place] lifts, holds or supports trunk or limbs, but provides less than half the effort. 2-Substantial/Maximal Assistance-helper does MORE THAN HALF the effort. [place] lifts or holds trunk or limbs and provides more than half the effort. 6-Sqgiwexue-tkjtnq does ALL the effort. Patient does none of the effort to complete the activity. Or, the assistance of 2 or more helpers is required for the patient to complete the activity. If activity was not attempted, code reason: 7-Patient Refused. 9-Not Applicable-not attempted and the patient did not perform the activity before the current illness, exacerbation or injury. 10-Not Attempted due to Environmental Limitations-(lack of equipment, weather restraints, etc.). 88-Not Attempted due to Medical Conditions or Safety Concerns. Sit to Stand (QC): 4 Chair/Yyb-pk-Rhsnm Xfer(QC): 4 Weight Bearing Right Lower Extremity: Right Full Weight Bearing Left Lower Extremity: Left Full Weight Bearing Gait Training Distance: 100' in room Walk 10 feet (QC): 3 Walk 50 ft with 2 Turns(QC): 3 Walk 150 ft (QC): 88 Gait Assistive Device: FWW PT assist for FWW advancement/slight unsteady gait sequence Exercises Seated Therapy Exercises: Ankle pumps, Long arc quads, Hip flexion Seated Reps: 15 (x 2 sets) Assessment Patient remains up in recliner with chair alarm activated. Patient tolerated treatment well. Breakfast in situ. Continue to increase activity as tolerated by patient. PT Bioinformatics Assistant Goals Bioinformatics Assistant Goals PT Bioinformatics Assistant Goals Time Frame: Sep 06, 2022 Roll Left & Right (QC): 6 Sit to Lying (QC): 6 Lying-Sitting on Side/Bed(QC): 6 Sit to Stand (QC): 6 Chair/Vgd-od-Lizen Xfer(QC): 6 Toilet Transfer (QC): 6 Does the Patient Walk: Yes Walk 10 feet (QC): 6 Walk 50ft with 2 Turns (QC): 6 Walk 150 ft (QC): 6 PT Plan Treatment/Plan Treatment Plan: Continue Plan of Care Treatment Plan: Bed Mobility, Education, Functional Activity Pj, Functional Strength, Gait, Safety, Therapeutic Exercise, Transfers Treatment Duration: Sep 12, 2022 Frequency: 6 times per week Estimated Hrs Per Day: .25 hour per day Patient and/or Family Agrees t: Yes Time Time In: 907 Time Out: 930 DATE: Aug 14, 2022 Total Billed Treatment Time: 23 Total Billed Treatment 1 visit EX 8 min GT 15 min ZEENAT SERNA PT Aug 14, 2022 10:14
[2022-08-14 11:40] VITALS: BP 106/69
[2022-08-14] MEDS: NS IV 1000 ML 1,000 ML IV SCH (14:02)
[2022-08-14] MEDS ORDERED: CATHETER FLUSH 10 ML SYR IVP PRN (14:30)
[2022-08-14 15:54] VITALS: BP 93/57
--- NOTE | 2022-08-14 18:04 | Progress Note - Hospitalist ---
Subjective HPI/CC On Admission Date Seen by Provider: Aug 14, 2022 Time Seen by Provider: 09:45 Francine Ramsay is an 87 year old female with PMH COPD, tobacco abuse, who presented with altered mental status. She says she didn't want to come to the hospital. She says the maintenance plumber called an ambulance. She was reportedly not responding and not talking when EMS arrived. She was not able to provide any history upon arrival to the ER. Her mental status did begin to improve and she was able to tell them her name. Upon my exam, she is alert and oriented. She is able to tell me her name, that we are at the hospital, and that it is 2022. She says it is July, and I let her know that today is August 13. She denies any complaints at this time and wants to go home. She denies fevers and chills. She denies shortness of breath. She does not use oxygen at home. She smokes but says it isn't much. She is unvaccinated for COVID. She says her doctor had told her not to get vaccines. She has not seen a doctor in many years and does not take any medications regularly. She is unsure how she got COVID. She says all her visitors wear masks and she doesn't go anywhere. Subjective/Events-last exam She is sitting in her chair. She wants some coffee. She denies shortness of breath. She has no complaints. Focused Exam Lactate Level 08/12/22 16:05: Lactic Acid Level 1.91 Objective Exam Vital Signs Vital Signs Date Time Temp Pulse Resp B/P (MAP) Pulse Ox O2 Delivery O2 Flow Rate FiO2 08/14/22 15:54 36.3 63 18 93/57 (69) 96 Nasal Cannula 2.00 Capillary Refill : Less Than 3 Seconds General Appearance: No Apparent Distress, Thin Respiratory: Lungs Clear, No Respiratory Distress Cardiovascular: Regular Rate, Rhythm, No Murmur Gastrointestinal: Normal Bowel Sounds, Soft Extremity: Normal Inspection, No Pedal Edema Neurologic/Psychiatric: Alert, Normal Mood/Affect Skin: Normal Color, Warm/Dry Results/Procedures Lab Laboratory Tests 08/14/22 05:16 Patient resulted labs reviewed. Imaging: Reviewed Imaging Report Assessment/Plan Assessment and Plan Assess & Plan/Chief Complaint Acute respiratory failure due to COVID-19 COPD Leukocytosis Cachexia Low TSH Elevated troponin Advanced age COVID+ on arrival 08/12 Not septic, no evidence of bacterial pneumonia on imaging Leukocytosis likely secondary to steroids Supplemental oxygen as needed Continue Decadron MAT protocol Troponin likely elevated due to hypoxia, no chest pain TSH low, T4 normal, likely euthyroid sick syndrome with acute illness PT/OT IRU evaluation DVT prophylaxis: Lovenox Delirium, resolved Goals of care discussion Diagnosis/Problems Diagnosis/Problems (1) Acute respiratory failure due to COVID-19 Status: Acute (2) Delirium due to another medical condition Status: Acute (3) VERONICA (acute kidney injury) Status: Acute (4) COPD (chronic obstructive pulmonary disease) Status: Chronic (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
[2022-08-14] MEDS: ENOXAPARIN INJECTION 30 MG/0.3 ML SYR SC SCH (19:09)
[2022-08-14 20:04] VITALS: BP 144/73
[2022-08-15 00:42] VITALS: BP 136/75
[2022-08-15] MEDS: RT-ALBUTEROL HFA 8.5 GM INHALER IH SCH ×2 (02:31→07:23)
[2022-08-15 04:59] VITALS: BP 159/77
[2022-08-15] MEDS: dexAMETHasone 6 MG TAB (DECADRON) PO SCH (05:31)
[2022-08-15 05:36] LABS: BASOPHILS % (AUTO) 0 % (0-10); EOSINOPHILS % (AUTO) 0 % (0-10); HEMATOCRIT 31 % (35-52); HEMOGLOBIN 10.8 g/dL (11.5-16.0); LYMPHOCYTES # (AUTO) 0.7 10^3/uL (1.0-4.0); LYMPHOCYTES % (AUTO) 6 % (12-44); MEAN CORPUSCULAR HEMOGLOBIN 31 pg (25-34); MEAN CORPUSCULAR HGB CONC 34 g/dL (32-36); MEAN CORPUSCULAR VOLUME 90 fL (80-99); MEAN PLATELET VOLUME 10.1 fL (9.0-12.2); MONOCYTES # (AUTO) 0.8 10^3/uL (0.0-1.0); MONOCYTES % (AUTO) 7 % (0-12); NEUTROPHILS % (AUTO) 85 % (42-75); PLATELET COUNT 214 10^3/uL (130-400); WHITE BLOOD COUNT 10.6 10^3/uL (4.3-11.0)
[2022-08-15 05:42] LABS: POTASSIUM 4.2 MMOL/L (3.6-5.0)
[2022-08-15 05:43] LABS: CALCIUM 8.1 MG/DL (8.5-10.1)
[2022-08-15 05:47] LABS: CREATININE SERUM 0.7 MG/DL (0.60-1.30)
[2022-08-15 05:50] LABS: MAGNESIUM 1.8 MG/DL (1.6-2.4)
[2022-08-15] MEDS: MAGNESIUM 1 GM/100 ML IVPB 100 ML IV SCH ×3 (06:02→07:48)
[2022-08-15] MEDS: POTASSIUM BICARB 20 MEQ (EFFER-K) TABLET PO SCH (06:03)
[2022-08-15] MEDS: KCL 20 MEQ TAB (K-DUR) PO SCH (06:03)
[2022-08-15] MEDS: POTASSIUM CL 10MEQ/50ML IVPB 50 ML IV SCH (06:03)
[2022-08-15 07:41] VITALS: BP 131/64
[2022-08-15] MEDS: NICOTINE 14 MG (NICODERM) PATCH TD SCH (09:00)
[2022-08-15] MEDS: NICOTINE PATCH REMOVAL TP SCH (09:00)
[2022-08-15] MEDS: DOCUSATE SODIUM 100 MG (COLACE) CAP PO SCH (09:15)
[2022-08-15] MEDS: SENNOSIDES 8.6 MG (SENOKOT) TAB PO SCH (09:15)
[2022-08-15] MEDS ORDERED: PRED10TA22 PO (10:10)
--- NOTE | 2022-08-15 11:32 | Discharge Summary ---
Discharge Summary Reconcile Patient Problems Problems Reviewed?: Yes Instructions for Patient Via [facility], Assessment/Instructions See instructions Physician to follow Patient: Antonio Discharge Diet for Home: No Restrictions Hospital Course Date of Admission: Aug 12, 2022 at 18:02 Admission Diagnosis : Acute respiratory failure due to COVID-19 Family Physician/Provider: Mayra,Local Physician Date of Discharge: 08/15/22 Discharge Diagnosis: Acute respiratory failure due to COVID-19 Hospital Course: Francine Ramsay is an 87 year old female who presented with altered mental status and was admitted with acute respiratory failure due to COVID-19. She has not seen a doctor in many years and does not take any regular medications. 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 She was found at her apartment altered and the industrial maintenance manager had to forcibly enter the apartment where she was found on the ground confused. She was started on oxygen and steroids and her symptoms improved. She will complete a short steroid taper at home. She was set up with 2 L oxygen with exertion. She worked with therapy and was set up with [facility]. She will follow up with Dr. Antonio to establish care. She was discharged home in stable condition. Labs and Pending Lab Test: Laboratory Tests 08/15/22 05:05: White Blood Count 10.6, Red Blood Count 3.51L, Hemoglobin 10.8L, Hematocrit 31L, Mean Corpuscular Volume 90, Mean Corpuscular Hemoglobin 31, Mean Corpuscular Hemoglobin Concent 34, Red Cell Distribution Width 14.1, Platelet Count 214, Me an Platelet Volume 10.1, Immature Granulocyte % (Auto) 2, Neutrophils (%) (Auto) 85H, Lymphocytes (%) (Auto) 6L, Monocytes (%) (Auto) 7, Eosinophils (%) (Auto) 0, Basophils (%) (Auto) 0, Neutrophils # (Auto) 9.0H, Lymphocytes # (Auto) 0.7L, Monocytes # (Auto) 0.8, Eosinophils # (Auto) 0.0, Basophils # (Auto) 0.0, Immature Granulocyte # (Auto) 0.2H, Sodium Level 137, Potassium Level 4.2, Chloride Level 105, Carbon Dioxide Level 21, Anion Gap 11, Blood Urea Nitrogen 22H, Creatinine 0.70, Estimat Glomerular Filtration Rate 84, BUN/Creatinine Ratio 31, Glucose Level 125H, Calcium Level 8.1L, Magnesium Level 1.8 Microbiology 08/12/22 Urine Culture - Final, Complete NO GROWTH 08/12/22 Blood Culture - Preliminary, Resulted Gram Positive Cocci Home Meds Active Prednisone 10 Mg Tab.ds.pk 10 Mg PO DAILY Take 6 tabs(60mg)daily,decrease by 1 tab(10MG)daily. 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 Pt req the following assistanc: Aid of another person Home Health Nursing Orders Home Health Services Order: Nursing Services, Size Changer-Evaluate & Treat, Physical Therapy-Evaluate & Treat Home Health Infusion Therapy Line Start Date: Aug 12, 2022 Therapy Orders Therapy Orders: OT (must have SN or PT order), Physical Therapy Therapy Specific Orders: Eval assistive deivces, Teach enviro modifications/safety, Gait training, Increase strength/endurance Certify Stmt I certify that this patient is under my care and that I, a nurse practitioner or a physician; a assistant to the dean working with me, had a face to face encounter that - meets the physician face to face encounter requirements with this patient as dated. Discharge Physical Exam General: Alert, Cooperative, No Acute Distress HEENT: Atraumatic, EOMI, Mucous Memb Moist/[place] Lungs: Clear to Auscultation, Normal Air Movement Heart: Regular Rate, No Murmurs Abdomen: Normal Bowel Sounds, Soft Extremities: No Edema, No Tenderness/Swelling Skin: No Rashes Neuro: Normal Speech Psych/Mental Status: Mental Status NL, Mood NL FAUSTINO JIMENEZ MD Aug 15, 2022 11:30
[2022-08-15 11:59] VITALS: BP 113/65
[2022-08-15 13:45] VITALS: BP 113/65
== END 2022-08-15 13:53 | disposition home health service (06) | DRG 177 ==
LOC: EDUNIT# 15:45 → ER 15:48 → 4TH 18:02
PROVIDERS: ADMIT Internal Medicine; ATTEND Internal Medicine
PROC: 8E0ZXY6 Isolation (ICD-10-PCS; principal; 2022-08-12)
DX: U07.1 COVID-19 (principal); J96.01 Acute respiratory failure with hypoxia; F05 Delirium due to known physiological condition; R64 Cachexia; Z68.1 Body mass index [BMI] 19.9 or less, adult; N17.9 Acute kidney failure, unspecified; F17.210 Nicotine dependence, cigarettes, uncomplicated; J44.9 Chronic obstructive pulmonary disease, unspecified; Z66 Do not resuscitate; E07.81 Sick-euthyroid syndrome; H54.7 Unspecified visual loss; Z28.310 Unvaccinated for COVID-19; Z28.89 Immunization not carried out for other reason
CPT/HCPCS: 36415; 70450; 71045; 71275; 74177; 80048; 80053; 80061; 81000; 82140; 82150; 82550; 82553; 82947; 83605; 83690; 83735; 83874; 83880; 84439; 84443; 84484; 85007; 85025; 85027; 85379; 85610; 85652; 85730; 86141; 87040; 87088; 87636; 93005; 93041; 94640; 94664; 94760; 94761

== ENCOUNTER → 2022-08-30 | Outpatient (CLI) | payer MEDICARE, MEDICAID ==
[~2022-08-30] MED LIST: ACET325T38 PO; LORA-1025 PO; PRED10TA22 PO
[2022-08-30 21:49] LABS: BILIRUBIN,URINE NEGATIVE (NEGATIVE); CLARITY,URINE CLEAR; COLOR,URINE YELLOW; GLUCOSE, URINE (UA) NEGATIVE (NEGATIVE); KETONES,URINE NEGATIVE (NEGATIVE); LEUKOCYTE ESTERASE ,URINE TRACE (NEGATIVE); NITRITE,URINE NEGATIVE (NEGATIVE); PH,URINE 5.5 (5-9); PROTEIN,URINE 1+ (NEGATIVE)
[2022-08-30 21:58] LABS: BACTERIA,URINE LARGE /HPF
== END ==
LOC: HH 21:42
DX: N17.9 Acute kidney failure, unspecified (principal)
CPT/HCPCS: 81000; 87088

== ENCOUNTER 2022-08-31 14:32 | Inpatient (IN) | payer MEDICARE, MEDICAID ==
[2022-08-31] VITALS (8 sets, daily range): BP systolic 102–127; BP diastolic 54–78
[~2022-08-31] VITALS: Ht 170.2 cm; Wt 50.3 kg
[~2022-08-31 14:32] MED LIST changes: -ACET325T38 PO; -LORA-1025 PO
[2022-08-31] MEDS ORDERED: CEFEPIME INJECTION 1,000 MG in NS (IVPB) 50 ML IV ONE (15:00)
[2022-08-31] MEDS ORDERED: LIDOCAINE UROJET 2% GEL 10 ML PKG TOP ONE (15:00)
[2022-08-31] MEDS ORDERED: LACTATED RINGERS 1,000 ML IV ONE ×2 (15:00→15:30)
--- NOTE | 2022-08-31 15:00 | ED General ---
General Chief Complaint: Altered Mental Status Stated Complaint: AMS, WEAKNESS Source of Information: Other (DAUGHTER) History of Present Illness Date Seen by Provider: Aug 31, 2022 Time Seen by Provider: 14:48 Initial Comments PT ARRIVES VIA POV FROM HOME AT [facility], NEEDS WHEELCHAIR ON ARRIVAL. PT LIVES ALONE FAMILY Allergies and Home Medications Allergies Coded Allergies: No Allergy Information Available (Unverified , 08/12/22) Patient Home Medication List Prednisone (Prednisone) 10 Mg Tab.ds.pk, 10 MG PO DAILY Prescribed by: FAUSTINO JIMENEZ on 08/15/22 1010 Past Lysxepy-Lzmagl-Zsbwya Hx Past Medical History COPD Family Medical History No Pertinent Family Hx Physical Exam Vital Signs Vital Signs - First Documented 08/31/22 14:34 Temp 37.2 Pulse 101 Resp 20 B/P (MAP) 106/68 (81) Pulse Ox 94 O2 Delivery Room Air Capillary Refill : Height, Weight, BMI Height: '" Weight: lbs. oz. kg; 14.25 BMI Method: Focused Exam Sepsis Stage: Sepsis Possible Source: Genitouriary Lactate Level 08/31/22 14:45: Lactic Acid Level 1.70 Time of Focused Exam: 15:45 Respiratory: Normal Breath Sounds, No Accessory Muscle Use, No Respiratory Distress Cardiovascular: Regular Rate, Rhythm, No Murmur Skin: normal color, warm/dry Lactic Acid Level Laboratory Tests Test 08/31/22 14:45 Lactic Acid Level 1.70 MMOL/L (0.50-2.00) Within 3hrs of presentation: Admin fluids, Admin ABX, Blood cultures prior to ABX's, Focus exam, Lactate level Progress/Results/Core Measures Suspected Sepsis SIRS Temperature: Pulse: Respiratory Rate: Laboratory Tests 08/31/22 14:45: White Blood Count 11.0 Blood Pressure / Mean: 08/31/22 14:45: Lactic Acid Level 1.70 Laboratory Tests 08/31/22 14:45: Creatinine 0.92, INR Comment 1.0, Platelet Count 223, Total Bilirubin 0.7 Results/Orders Lab Results Laboratory Tests Test 08/31/22 14:45 08/31/22 14:52 Range/Units White Blood Count 11.0 4.3-11.0 10^3/uL Red Blood Count 3.51 L 3.80-5.11 10^6/uL Hemoglobin 10.6 L 11.5-16.0 g/dL Hematocrit 32 L 35-52 % Mean Corpuscular Volume 91 80-99 fL Mean Corpuscular Hemoglobin 30 25-34 pg Mean Corpuscular Hemoglobin Concent 33 32-36 g/dL Red Cell Distribution Width 14.4 10.0-14.5 % Platelet Count 223 130-400 10^3/uL Mean Platelet Volume 9.9 9.0-12.2 fL Immature Granulocyte % (Auto) 1 % Neutrophils (%) (Auto) 73 42-75 % Lymphocytes (%) (Auto) 16 12-44 % Monocytes (%) (Auto) 9 0-12 % Eosinophils (%) (Auto) 1 0-10 % Basophils (%) (Auto) 1 0-10 % Neutrophils # (Auto) 8.1 H 1.8-7.8 10^3/uL Lymphocytes # (Auto) 1.8 1.0-4.0 10^3/uL Monocytes # (Auto) 1.0 0.0-1.0 10^3/uL Eosinophils # (Auto) 0.1 0.0-0.3 10^3/uL Basophils # (Auto) 0.1 0.0-0.1 10^3/uL Immature Granulocyte # (Auto) 0.1 0.0-0.1 10^3/uL Erythrocyte Sedimentation Rate > 140 H 0-30 MM/HR Prothrombin Time 14.1 12.2-14.7 SEC INR Comment 1.0 0.8-1.4 Activated Partial Thromboplast Time 41 H 24-35 SEC Sodium Level 136 135-145 MMOL/L Potassium Level 4.0 3.6-5.0 MMOL/L Chloride Level 102 98-107 MMOL/L Carbon Dioxide Level 22 21-32 MMOL/L Anion Gap 12 5-14 MMOL/L Blood Urea Nitrogen 19 H 7-18 MG/DL Creatinine 0.92 0.60-1.30 MG/DL Estimat Glomerular Filtration Rate 60 BUN/Creatinine Ratio 21 Glucose Level 114 H 70-105 MG/DL Lactic Acid Level 1.70 0.50-2.00 MMOL/L Calcium Level 8.7 8.5-10.1 MG/DL Corrected Calcium 9.3 8.5-10.1 MG/DL Magnesium Level 2.0 1.6-2.4 MG/DL Total Bilirubin 0.7 0.1-1.0 MG/DL Aspartate Amino Transf (AST/SGOT) 34 5-34 U/L Alanine Aminotransferase (ALT/SGPT) 43 0-55 U/L Alkaline Phosphatase 81 40-136 U/L Troponin I < 0.028 <0.028 NG/ML C-Reactive Protein High Sensitivity 15.81 H 0.00-0.50 MG/DL Total Protein 6.9 6.4-8.2 GM/DL Albumin 3.2 3.2-4.5 GM/DL Amylase Level 49 25-125 U/L Lipase 33 8-78 U/L Urine Color YELLOW Urine Clarity CLEAR Urine pH 5.5 5-9 Urine Specific [place] 1.020 1.016-1.022 Urine Protein 2+ H NEGATIVE Urine Glucose (UA) NEGATIVE NEGATIVE Urine Ketones NEGATIVE NEGATIVE Urine Nitrite NEGATIVE NEGATIVE Urine Bilirubin NEGATIVE NEGATIVE Urine Urobilinogen 0.2 < = 1.0 MG/DL Urine Leukocyte Esterase 1+ H NEGATIVE Urine RBC (Auto) TRACE-I H NEGATIVE Urine RBC NONE /HPF Urine WBC 10-25 H /HPF Urine Squamous Epithelial Cells 25-50 H /HPF Urine Crystals NONE /LPF Urine Bacteria LARGE H /HPF Urine Casts NONE /LPF Urine Mucus MODERATE H /LPF Urine Culture Indicated YES My Orders Orders - EDWIN JONES DO Accucheck Stat ONCE (08/31/22 14:53) Ed Iv/Invasive Line Start (08/31/22 14:53) Ekg Tracing (08/31/22 14:53) Catheter(Urinary) Insert & Ass 03,15 (08/31/22 14:53) O2 (08/31/22 14:53) Monitor-Rhythm Ecg Trace Only (08/31/22 14:53) Ct Head Wo-R/O Stroke (08/31/22 14:53) Chest 1 View, Ap/Pa Only (08/31/22 14:53) Amylase (08/31/22 14:53) Cbc With Automated Diff (08/31/22 14:53) Comprehensive Metabolic Panel (08/31/22 14:53) Hs C Reactive Protein (08/31/22 14:53) Lactic Acid Analyzer (08/31/22 14:53) Lipase (08/31/22 14:53) Magnesium (08/31/22 14:53) Protime With Inr (08/31/22 14:53) Partial Thromboplastin Time (08/31/22 14:53) Thyroid Analyzer (08/31/22 14:53) Ua Culture If Indicated (08/31/22 14:53) Blood Culture (08/31/22 14:53) Erythrocyte Sedimentation Rate (08/31/22 14:53) Troponin I [place] (08/31/22 14:53) Ed Iv/Invasive Line Start (08/31/22 14:53) Lactated Ringers (Lr 1000 Ml Iv Solution (08/31/22 15:00) Sputum Culture (08/31/22 14:53) Urine Culture (08/31/22 14:53) Ed Iv/Invasive Line Start (08/31/22 14:53) Ed Iv/Invasive Line Start (08/31/22 14:53) Vital Signs Adult Sepsis Patie Q15M (08/31/22 14:53) O2 (08/31/22 14:53) Remove Rings In Anticipation O (08/31/22 14:53) Lidocaine 2% (Urojet) (Xylocaine Urojet) (08/31/22 15:00) Influenza A And B By Pcr (08/31/22 14:53) Isolation Central Supply Req (08/31/22 14:53) Cefepime Injection (Maxipime Injection) (08/31/22 15:00) Ed Iv/Invasive Line Start (08/31/22 15:22) Lactated Ringers (Lr 1000 Ml Iv Solution (08/31/22 15:30) Urine Culture (08/31/22 14:52) Medications Given in ED Current Medications Medications Dose Ordered Sig/Juan F Route Start Time Stop Time Status Last Admin Dose Admin Lactated Ringer's 1,000 ml @ 0 mls/hr Q0M ONCE IV 08/31/22 15:00 08/31/22 15:01 DC 08/31/22 15:16 1,000 MLS/HR Vital Signs/I&O 08/31/22 14:34 Temp 37.2 Pulse 101 Resp 20 B/P (MAP) 106/68 (81) Pulse Ox 94 O2 Delivery Room Air Capillary Refill : Departure Impression Primary Impression: Sepsis Additional Impressions: UTI (urinary tract infection) Dehydration Altered mental status Generalized weakness RECENT COVID INFECTION Emaciation Smoker Departure-Patient Inst. Referrals: NO,LOCAL PHYSICIAN (PCP/Family) Primary Care Physician EDWIN JONES DO Aug 31, 2022 15:00
[2022-08-31 15:06] LABS: BASOPHILS # (AUTO) 0.1 10^3/uL (0.0-0.1); BASOPHILS % (AUTO) 1 % (0-10); EOSINOPHILS # (AUTO) 0.1 10^3/uL (0.0-0.3); EOSINOPHILS % (AUTO) 1 % (0-10); HEMATOCRIT 32 % (35-52); HEMOGLOBIN 10.6 g/dL (11.5-16.0); LYMPHOCYTES # (AUTO) 1.8 10^3/uL (1.0-4.0); LYMPHOCYTES % (AUTO) 16 % (12-44); MEAN CORPUSCULAR HEMOGLOBIN 30 pg (25-34); MEAN CORPUSCULAR HGB CONC 33 g/dL (32-36); MEAN CORPUSCULAR VOLUME 91 fL (80-99); MEAN PLATELET VOLUME 9.9 fL (9.0-12.2); MONOCYTES % (AUTO) 9 % (0-12); NEUTROPHILS # (AUTO) 8.1 10^3/uL (1.8-7.8); NEUTROPHILS % (AUTO) 73 % (42-75); PLATELET COUNT 223 10^3/uL (130-400)
[2022-08-31 15:07] LABS: BILIRUBIN,URINE NEGATIVE (NEGATIVE); CLARITY,URINE CLEAR; COLOR,URINE YELLOW; GLUCOSE, URINE (UA) NEGATIVE (NEGATIVE); KETONES,URINE NEGATIVE (NEGATIVE); LEUKOCYTE ESTERASE ,URINE 1+ (NEGATIVE); NITRITE,URINE NEGATIVE (NEGATIVE); PH,URINE 5.5 (5-9); PROTEIN,URINE 2+ (NEGATIVE)
[2022-08-31 15:12] LABS: ALBUMIN 3.2 GM/DL (3.2-4.5); CHLORIDE 102 MMOL/L (98-107); SODIUM 136 MMOL/L (135-145)
[2022-08-31 15:13] LABS: CALCIUM 8.7 MG/DL (8.5-10.1)
[2022-08-31 15:14] LABS: AMYLASE 49 U/L (25-125)
[2022-08-31 15:15] LABS: GLUCOSE 114 MG/DL (70-105); TOTAL PROTEIN 6.9 GM/DL (6.4-8.2)
[2022-08-31 15:16] LABS: CARBON DIOXIDE 22 MMOL/L (21-32)
[2022-08-31 15:17] LABS: BILIRUBIN,TOTAL 0.7 MG/DL (0.1-1.0)
[2022-08-31 15:18] LABS: ALKALINE PHOSPHATASE 81 U/L (40-136)
[2022-08-31 15:19] LABS: CREATININE SERUM 0.92 MG/DL (0.60-1.30); GFR ESTIMATED 60
[2022-08-31 15:20] LABS: BUN/CREATININE RATIO 21; PROTHROMBIN TIME PATIENT 14.1 SEC (12.2-14.7)
[2022-08-31 15:21] LABS: ALANINE AMINOTRANSFERASE 43 U/L (0-55)
[2022-08-31 15:23] LABS: LIPASE 33 U/L (8-78)
[2022-08-31 15:33] LABS: BACTERIA,URINE LARGE /HPF; SQUAMOUS EPITHELIAL CELL,UR 25-50 /HPF
[2022-08-31 15:36] LABS: ERYTHROCYTE SEDIMENTATION RATE > 140 MM/HR (0-30)
--- NOTE | 2022-08-31 15:40 | Diagnostic Imaging Report ---
PROCEDURE: CT head /o r/o stroke. TECHNIQUE: Multiple contiguous axial images were obtained through the brain without the use of intravenous contrast. Auto Exposure Controls were utilized during the CT exam to meet ALARA standards for radiation dose reduction. INDICATION: Fever, altered mental status. COMPARISON: Head CT 08/12/2022. Chronic atrophy and white matter small vessel disease with atherosclerotic calcifications stable. No hemorrhage or edema. No hydrocephalus. No acute extra-axial fluid collection. No evidence for elevated pressures. The orbits, sinuses and calvarium appear nonacute. IMPRESSION: Stable chronic senescent findings. No acute appearing abnormality. Dictated by: Dictated on workstation # [id number]
--- NOTE | 2022-08-31 15:42 | Diagnostic Imaging Report ---
INDICATION: Fever. TIME OF EXAM: 3:37 PM. COMPARISON: Prior chest from 08/04/2022. FINDINGS: Heart size normal. Lungs are clear. No infiltrate is seen. There is no effusion or pneumothorax. IMPRESSION: No acute abnormality is detected. Dictated by: Dictated on workstation # [id number]
[2022-08-31 15:43] LABS: TSH (THYROID ANALYZER) 0.89 UIU/ML (0.35-4.94)
[2022-08-31] MEDS ORDERED: CALCIUM CARBONATE 500 MG (TUMS) TAB.CHEW PO PRN (17:00)
[2022-08-31] MEDS ORDERED: LACTULOSE SYRUP 10GM/15ML (ENULOSE) 30ML UDC PO PRN (17:00)
[2022-08-31] MEDS ORDERED: cefTRIAXone 1 GM PRE-MIX 50 ML IV SCH (17:00)
[2022-08-31] MEDS ORDERED: NS IV 500 ML 500 ML IV PRN (17:00)
[2022-08-31] MEDS ORDERED: ONDANSETRON 4 MG (ZOFRAN) ORAL DISSOLVE TAB PO PRN (17:00)
[2022-08-31] MEDS ORDERED: MELATONIN 3 MG TABLET PO PRN (17:00)
[2022-08-31] MEDS ORDERED: BISACODYL 10 MG SUPP (DULCOLAX) PR PRN (17:00)
[2022-08-31] MEDS ORDERED: polyethylene glycoL POWDER 17 GM (MIRALAX) PACK PO PRN (17:00)
[2022-08-31] MEDS ORDERED: MILK OF MAGNESIA 400 MG/5 ML 30 ML UDC PO PRN (17:00)
[2022-08-31] MEDS ORDERED: ONDANSETRON 4 MG/2 ML (SDV) Z0FRAN IV PRN (17:00)
[2022-08-31] MEDS ORDERED: ANTACID SUSP 30 ML UDC (MYLANTA) PO PRN (17:00)
[2022-08-31] MEDS ORDERED: ACETAMINOPHEN 325 MG TABLET PO PRN (17:00)
[2022-08-31] MEDS: LACTATED RINGERS 1,000 ML IV SCH (17:28)
[2022-08-31] MEDS ORDERED: RT-ALBUTEROL SULF 2.5 MG/3 ML PRE-MIX VIAL INH PRN (17:30)
[2022-08-31] MEDS: SENNOSIDES 8.6 MG (SENOKOT) TAB PO SCH (19:50)
[2022-08-31] MEDS: DOCUSATE SODIUM 100 MG (COLACE) CAP PO SCH (19:50)
[2022-09-01] VITALS (8 sets, daily range): BP systolic 101–157; BP diastolic 52–91
[2022-09-01] MEDS: LACTATED RINGERS 1,000 ML IV SCH ×3 (03:47→17:44)
[2022-09-01 06:20] LABS: BASOPHILS % (AUTO) 1 % (0-10); EOSINOPHILS # (AUTO) 0.1 10^3/uL (0.0-0.3); EOSINOPHILS % (AUTO) 1 % (0-10); LYMPHOCYTES # (AUTO) 0.6 10^3/uL (1.0-4.0); LYMPHOCYTES % (AUTO) 8 % (12-44); MEAN CORPUSCULAR HGB CONC 34 g/dL (32-36); MEAN CORPUSCULAR VOLUME 91 fL (80-99); MONOCYTES # (AUTO) 0.4 10^3/uL (0.0-1.0); MONOCYTES % (AUTO) 5 % (0-12); NEUTROPHILS # (AUTO) 6.4 10^3/uL (1.8-7.8); NEUTROPHILS % (AUTO) 84 % (42-75)
[2022-09-01 06:24] LABS: HEMATOCRIT 29 % (35-52); HEMOGLOBIN 9.8 g/dL (11.5-16.0); MEAN CORPUSCULAR HEMOGLOBIN 31 pg (25-34); PLATELET COUNT 135 10^3/uL (130-400); WHITE BLOOD COUNT 8.5 10^3/uL (4.3-11.0)
[2022-09-01 06:32] LABS: CALCIUM 7.9 MG/DL (8.5-10.1); CREATININE SERUM 0.73 MG/DL (0.60-1.30); MAGNESIUM 1.8 MG/DL (1.6-2.4); POTASSIUM 4.3 MMOL/L (3.6-5.0)
[2022-09-01] MEDS: POTASSIUM BICARB 20 MEQ (EFFER-K) TABLET PO SCH (06:46)
[2022-09-01] MEDS: POTASSIUM CL 10MEQ/50ML IVPB 50 ML IV SCH (06:46)
[2022-09-01] MEDS: MAGNESIUM 1 GM/100 ML IVPB 100 ML IV SCH ×3 (06:46→08:18)
[2022-09-01] MEDS: KCL 20 MEQ TAB (K-DUR) PO SCH (06:47)
[2022-09-01 06:50] LABS: SMEAR SCAN COMMENT YES
[2022-09-01] MEDS: DOCUSATE SODIUM 100 MG (COLACE) CAP PO SCH ×2 (08:18→20:47)
[2022-09-01] MEDS: SENNOSIDES 8.6 MG (SENOKOT) TAB PO SCH ×2 (08:18→20:47)
--- NOTE | 2022-09-01 09:42 | Physical Therapy Evaluation ---
PT Evaluation-General Medical Diagnosis Admission Date Aug 31, 2022 at 16:04 Medical Diagnosis: sepsis/UTI Onset Date: Aug 31, 2022 Therapy Diagnosis Therapy Diagnosis: generalized weakness/debility Precautions Precautions/Isolations: Fall Prevention, Standard Precautions Referral Physician: Niharika Reason for Referral: Evaluation/Treatment Medical History Pertinent Medical History: COPD Additional Medical History Covid Current History ER secondary to weakness Reviewed History: Yes Social History Home: Apartment Current Living Status: Alone Prior Prior Level of Function SCALE: Activities may be completed with or without assistive devices. 2-Wxgvijyzax-jzlbmws completes the activity by him/herself with no assistance from a helper. 5-Set-up or Clean-up Assistance-helper sets up or cleans up; patient completes activity. [place] assists only prior to or following the activity. 4-Supervision or Touching Assistance-helper provides verbal cues and/or touching/steadying and/or contact guard assistance as patient completes activity. Assistance may be provided throughout the activity or intermittently. 3-Partial/Moderate Assistance-helper does LESS THAN HALF the effort. [place] lifts, holds or supports trunk or limbs, but provides less than half the effort. 2-Substantial/Maximal Assistance-helper does MORE THAN HALF the effort. [place] lifts or holds trunk or limbs and provides more than half the effort. 1-Qetzbfeuj-nolcvi does ALL the effort. Patient does none of the effort to complete the activity. Or, the assistance of 2 or more helpers is required for the patient to complete the activity. If activity was not attempted, code reason: 7-Patient Refused. 9-Not Applicable-not attempted and the patient did not perform the activity before the current illness, exacerbation or injury. 10-Not Attempted due to Environmental Limitations-(lack of equipment, weather restraints, etc.). 88-Not Attempted due to Medical Conditions or Safety Concerns. Prior Devices Use: Walker per RN, family does assist (unable to determine) PT Evaluation-Current Subjective Patient very confused. Objective Patient Orientation: Confused Attachments: Cuevas Catheter, IV ROM/Strength ROM Lower Extremities bilateral LE WFL Strength Lower Extremities 3-/5 grossly bilateral LE all planes (unable to formally test due to patient's confusion) Integumentary/Posture Bowel Incontinence: Yes Bladder Incontinence: Cuevas Cath Posture kyphotic Neuromuscular (Tone, Coordination, Reflexes) diminished coordination due to weakness Sensory Vision: Wears Glasses Transfers Lying to Sitting/Side of Bed(Q: 2 Sit to Stand (QC): 2 Chair/Clr-is-Zkbja Xfer(QC): 2 Toilet Transfer (QC): 2 Gait Mode of Locomotion: Walk Anticipated Mode of Locomotion: Walk Walk 10 feet (QC): 2 Walk 50 ft with 2 Turns(QC): 88 Walk 150 ft (QC): 88 Gait Assistive Device: FWW Comments/Gait Description PT assist with all mobility due to patients inability to follow simple direction and utilize FWW Balance Sitting Static: Fair Sitting Dynamic: Fair Standing Static: Poor Standing Dynamic: Poor Assessment/Needs Patient very confused, incontinent BM on the floor, unable to follow direction and requiring max assist to attain sit on toilet and chair safely. Patient will benefit from skilled PT to address functional strength and mobility to improve current LOF. Rehab Potential: Guarded PT Mcc Goals Mcc Goals PT Paper Bag Inspector Goals Time Frame: Sep 13, 2022 Roll Left & Right (QC): 4 Sit to Lying (QC): 4 Lying-Sitting on Side/Bed(QC): 4 Sit to Stand (QC): 4 Chair/Rgb-ob-Brhag Xfer(QC): 4 Toilet Transfer (QC): 4 Walk 10 feet (QC): 4 Walk 50ft with 2 Turns (QC): 4 Walk 150 ft (QC): 4 PT Plan Problem List Problem List: Activity Tolerance, Functional Strength, Safety, Balance, Gait, Transfer, Bed Mobility Treatment/Plan Treatment Plan: Continue Plan of Care Treatment Plan: Bed Mobility, Education, Functional Activity Pj, Functional Strength, Gait, Safety, Therapeutic Exercise, Transfers Treatment Duration: Sep 13, 2022 Frequency: 6 times per week Estimated Hrs Per Day: .25 hour per day Time Time In: 746 Time Out: 813 DATE: Sep 01, 2022 Total Billed Treatment Time: 27 [facility] min ZEENAT SERNA PT Sep 01, 2022 09:42
--- NOTE | 2022-09-01 09:55 | Occ Therapy Progress Note ---
Therapy Progress Note OT performed speech cognition screen, OT recommends ST order. EBONY FLOWERS OT Sep 01, 2022 09:55
[2022-09-01] MEDS ORDERED: ACET325T38 PO (10:10)
[2022-09-01] MEDS ORDERED: LORA-1025 PO (10:10)
--- NOTE | 2022-09-01 10:57 | History & Physical-Hospitalist ---
History of Present Illness HPI/Chief Complaint 87-year-old female with a past medical history of recent COVID infection and COPD who presented to the emergency department due to weakness and altered mental status. She was unable to provide me much history and just told me multiple times that she was very cold. She has no family at bedside. She was found to have a urinary tract infection and was admitted for further management. Source: patient Date Seen 09/01/22 Time Seen by a Provider: 10:52 Attending Physician No,Local Physician PCP Admitting Physician: Shirley Bundy MD Attending Physician: Susana Mackey MD Referring Physician Date of Admission Aug 31, 2022 at 16:04 Home Medications & Allergies Home Medications Reviewed patient Home Medication Reconciliation performed by pharmacy medication reconciliations patient services technician and/or nursing. Patients Allergies have been reviewed. Allergies Allergies Coded Allergies No Allergy Information Available (Unverified08/12/22) Past Bqhzijt-Etkhqn-Ifwbld Hx Patient Social History Tobacco Use?: Yes Tobacco type used: Cigarettes Smoking Status: Current Everyday Smoker Use of E-Cig and/or Vaping dev: No Substance use?: No Alcohol Use?: No Pt feels they are or have been: No Immunizations Up To Date Date of Influenza Vaccine: May 08, 2022 Tetanus Booster (TDap): Unknown Current Status Advance Directives: No Communicates: Verbally Primary Language: Salvadorean Preferred Spoken Language: Salvadorean Is interpretation needed?: No Sensory deficits: Vision impairment Implanted or Applied Medical D: None Past Medical History COPD Family Medical History No Pertinent Family Hx Review of Systems Constitutional: see HPI Physical Exam Physical Exam Vital Signs Vital Signs - First Documented 08/31/22 09/01/22 14:34 19:42 Temp 37.2 Pulse 101 Resp 20 B/P (MAP) 106/68 (81) Pulse Ox 94 O2 Delivery Room Air O2 Flow Rate 2.00 Capillary Refill : Less Than 3 Seconds Height, Weight, BMI Height: '" Weight: lbs. oz. kg; 17.36 BMI Method: General Appearance: No Apparent Distress, Chronically ill, Thin Respiratory: Lungs Clear, No Respiratory Distress Cardiovascular: Regular Rate, Rhythm, No Murmur Neurologic/Psychiatric: Alert, Disoriented (seems to know she is in the hospital but otherwise did not answer any questions appropriately) Results Results/Procedures Labs Laboratory Tests 08/31/22 14:45 09/01/22 05:02 09/02/22 05:20 Patient resulted labs reviewed. Imaging: Reviewed Imaging Report Imaging [facility] [place], [place] NAME: KARI ROSEN [facility] REC#: [id number] PT STATUS: REG ER : 1935 PHYSICIAN: EDWIN JONES DO ADMIT DATE: 08/31/22/ER Signed Date of Exam:08/31/22 CHEST 1 VIEW, AP/PA ONLY INDICATION: Fever. TIME OF EXAM: 3:37 PM. COMPARISON: Prior chest from 08/04/2022. FINDINGS: Heart size normal. Lungs are clear. No infiltrate is seen. There is no effusion or pneumothorax. IMPRESSION: No acute abnormality is detected. Dictated by: Dictated on workstation # [id number] Dict: 08/31/22 1537 Trans: 08/31/22 1554 PJE [id number] Interpreted by: CAMILA HAGAN MD Electronically signed by: CAMILA HAGAN MD 08/31/22 1556 [facility] [place], [place] NAME: KARI ROSEN [facility] REC#: [id number] PT STATUS: REG ER : 1935 PHYSICIAN: EDWIN JONES DO ADMIT DATE: 08/31/22/ER Signed Date of Exam:08/31/22 CT HEAD WO-R/O STROKE PROCEDURE: CT head /o r/o stroke. TECHNIQUE: Multiple contiguous axial images were obtained through the brain without the use of intravenous contrast. Auto Exposure Controls were utilized during the CT exam to meet ALARA standards for radiation dose reduction. INDICATION: Fever, altered mental status. COMPARISON: Head CT 08/12/2022. Chronic atrophy and white matter small vessel disease with atherosclerotic calcifications stable. No hemorrhage or edema. No hydrocephalus. No acute extra-axial fluid collection. No evidence for elevated pressures. The orbits, sinuses and calvarium appear nonacute. IMPRESSION: Stable chronic senescent findings. No acute appearing abnormality. Dictated by: Dictated on workstation # [id number] Dict: 08/31/22 1532 Trans: 08/31/22 1558 PJE [id number] Interpreted by: ENMANUEL MCCRARY Electronically signed by: ENMANUEL MCCRARY 08/31/22 1558 Assessment/Plan Admission Diagnosis Sepsis Admission Status: Inpatient Order (span 2 midnights) Reason for Inpatient Admission: see below Assessment and Plan Sepsis due to UTI AMS (delirium vs dementia) Cachexia Continue IV abx Await cultures Reviewed previous records and appears to have been A&OX3 then Speech consult for cognitive eval PT/OT rn women services for likely SNF placement Ensure TID DVT ppx: Lovenox Diagnosis/Problems Diagnosis/Problems (1) Sepsis Status: Acute Qualifiers: Sepsis type: sepsis due to unspecified organism Sepsis acute organ dysfunction status: unspecified Qualified Codes: A41.9 - Sepsis, unspecified organism (2) UTI (urinary tract infection) Status: Acute Qualifiers: Urinary tract infection type: acute cystitis Hematuria presence: without hematuria Qualified Codes: N30.00 - Acute cystitis without hematuria (3) Altered mental status Status: Acute Qualifiers: Altered mental status type: delirium Qualified Codes: R41.0 - Disorientation, unspecified (4) Emaciation Status: Acute (5) Smoker Status: Acute (6) Generalized weakness Status: Acute (7) Dehydration Status: Acute (8) Debility Status: Acute (9) COPD (chronic obstructive pulmonary disease) Status: Chronic SUSANA MACKEY MD Sep 01, 2022 10:57
--- NOTE | 2022-09-01 11:37 | Occupational Therapy Eval ---
OT Evaluation-General/PLF Medical Diagnosis Admission Date Aug 31, 2022 at 16:04 Medical Diagnosis: sepsis/UTI Onset Date: Aug 31, 2022 Therapy Diagnosis Therapy Diagnosis: weakness/confusion Precautions Precautions/Isolations: Fall Prevention, Standard Precautions Safety Interventions: Bed Exit Alarm Referral Physician: Niharika Vasquez Reason: Evaluation/Treatment Medical History Pertinent Medical History: COPD Additional Medical History 08/12-08/15/22 [facility] w/ COVID Social History Home: Apartment Current Living Status: Alone ADL-Prior Level of Function SCALE: Activities may be completed with or without assistive devices. 8-Pflifbdnlz-rnkrqol completes the activity by him/herself with no assistance from a helper. 5-Set-up or Clean-up Assistance-helper sets up or cleans up; patient completes activity. [place] assists only prior to or following the activity. 4-Supervision or Touching Assistance-helper provides verbal cues and/or touching/steadying and/or contact guard assistance as patient completes ac tivity. Assistance may be provided throughout the activity or intermittently. 3-Partial/Moderate Assistance-helper does LESS THAN HALF the effort. [place] lifts, holds or supports trunk or limbs, but provides less than half the effort. 2-Substantial/Maximal Assistance-helper does MORE THAN HALF the effort. [place] lifts or holds trunk or limbs and provides more than half the effort. 0-Xfoqagnhx-bgdfoh does ALL the effort. Patient does none of the effort to complete the activity. Or, the assistance of 2 or more helpers is required for the patient to complete the activity. If activity was not attempted, code reason: 7-Patient Refused. 9-Not Applicable-not attempted and the patient did not perform the activity before the current illness, exacerbation or injury. 10-Not Attempted due to Environmental Limitations-(lack of equipment, weather restraints, etc.). 88-Not Attempted due to Medical Conditions or Safety Concerns. Self Care: Needed Some Help Functional Cognition: Needed Some Help Drive Self: No OT Current Status Subjective Agreeable to OT, poor organization thought and word finding difficulty Mental Status/Objective Patient Orientation: Person Attachments: Cuevas Catheter, IV Current Glasses/Contacts: Yes Dentures/Partials: Yes Upper Extremity ROM BUE ROM WFLS by observation, dos not follow commands Upper Extremity Strength BUE strength subjective 3/5, does not follow commands, unable to assist with transfers ADL-Treatment Eating (QC): 4 (limited hand eye coordination) Oral Hygiene (QC): 3 Shower/Bathe Self (QC): 88 Upper Body Dressing (QC): 3 Lower Body Dressing (QC): 1 On/Off Footwear (QC): 2 Toileting Hygiene (QC): [address] evaluation Education OT Patient Education: Progress toward Goal/Update tx plan, Purpose of tx/functional activities, Reviewed precautions, Rehab process, Safety issues, Transfer techniques, Use of adapted equipment Teaching Recipient: Patient Response to Teaching: Reinforcement Needed OT Rotary Dump Operator Goals Rotary Dump Operator Goals Eating (QC): 6 Oral Hygiene (QC): 6 Toileting Hygiene (QC): 5 Shower/Bathe Self (QC): 5 Upper Body Dressing (QC): 6 Lower Body Dressing (QC): 5 On/Off Footwear (QC): 5 1=Demonstrate adherence to instructed precautions during ADL tasks. 2=Patient will verbalize/demonstrate understanding of assistive devices/modifications for ADL. 3=Patient will improve strength/tolerance for activity to enable patient to perform ADL's. OT Education/Plan Problem List/Assessment Assessment: Decreased Activ Tolerance, Decreased Safety Aware, Decreased UE Strength, Dependent Transfers, Impaired Cognition, Impaired Coordination, Impaired Funct Balance, Impaired Self-Care Skills Discharge Recommendations Plan/Recommendations: Continue POC Therapy Discharge Recommendati: Post Acute OT Treatment Plan/Plan of Care Treatment,Training & Education: Yes Patient would benefit from OT for education, treatment and training to promote independence in ADL's, mobility, safety and/or upper extremity function for ADL's. Plan of Care: ADL Retraining, Cognitive Retraining, Functional Mobility, Group Exercise/Act as Ind, UE Funct Exercise/Act Treatment Duration: Sep 06, 2022 Frequency: 3 times per week (3-5 times per week) Estimated Hrs Per Day: .25 hour per day Agreement: Yes Rehab Potential: Guarded up in recliner w/ chair alarm activated.call light in reach, all needs met Time Start Time: 10:25 Stop Time: 10:37 DATE: Sep 01, 2022 Total Time Billed (hr/min): 12 Billed Treatment Time EVH 12 min EBONY FLOWERS OT Sep 01, 2022 11:37
[2022-09-01] MEDS: ENOXAPARIN INJECTION 30 MG/0.3 ML SYR SC SCH (13:32)
[2022-09-01] MEDS: AMPICILLIN FOR IV USE 1,000 MG in NS (IVPB) 50 ML IV SCH ×2 (16:57→22:02)
[2022-09-02 04:47] VITALS: BP 105/58
[2022-09-02] MEDS: AMPICILLIN FOR IV USE 1,000 MG in NS (IVPB) 50 ML IV SCH ×2 (04:48→10:55)
[2022-09-02 05:44] LABS: BASOPHILS # (AUTO) 0.1 10^3/uL (0.0-0.1); BASOPHILS % (AUTO) 1 % (0-10); EOSINOPHILS # (AUTO) 0.3 10^3/uL (0.0-0.3); EOSINOPHILS % (AUTO) 4 % (0-10); HEMATOCRIT 26 % (35-52); HEMOGLOBIN 8.6 g/dL (11.5-16.0); LYMPHOCYTES # (AUTO) 1.2 10^3/uL (1.0-4.0); LYMPHOCYTES % (AUTO) 13 % (12-44); MEAN CORPUSCULAR HEMOGLOBIN 30 pg (25-34); MEAN CORPUSCULAR HGB CONC 33 g/dL (32-36); MEAN CORPUSCULAR VOLUME 92 fL (80-99); MEAN PLATELET VOLUME 10.2 fL (9.0-12.2); MONOCYTES # (AUTO) 0.6 10^3/uL (0.0-1.0); MONOCYTES % (AUTO) 7 % (0-12); NEUTROPHILS # (AUTO) 6.9 10^3/uL (1.8-7.8); NEUTROPHILS % (AUTO) 75 % (42-75); PLATELET COUNT 237 10^3/uL (130-400); WHITE BLOOD COUNT 9.2 10^3/uL (4.3-11.0)
[2022-09-02 06:05] LABS: POTASSIUM 3.8 MMOL/L (3.6-5.0)
[2022-09-02 06:06] LABS: CALCIUM 7.9 MG/DL (8.5-10.1)
[2022-09-02] MEDS: POTASSIUM CL 10MEQ/50ML IVPB 50 ML IV SCH (06:08)
[2022-09-02] MEDS: KCL 20 MEQ TAB (K-DUR) PO SCH (06:09)
[2022-09-02] MEDS: POTASSIUM BICARB 20 MEQ (EFFER-K) TABLET PO SCH (06:09)
[2022-09-02 06:10] LABS: CREATININE SERUM 0.8 MG/DL (0.60-1.30)
[2022-09-02] MEDS: MAGNESIUM 1 GM/100 ML IVPB 100 ML IV SCH (06:14)
[2022-09-02] MEDS: DOCUSATE SODIUM 100 MG (COLACE) CAP PO SCH (07:41)
[2022-09-02 07:55] VITALS: BP 123/58
[2022-09-02] MEDS ORDERED: KCL 20 MEQ TAB (K-DUR) PO ONE (09:00)
[2022-09-02] MEDS: SENNOSIDES 8.6 MG (SENOKOT) TAB PO SCH (09:05)
--- NOTE | 2022-09-02 09:34 | Progress Note - Hospitalist ---
Subjective HPI/CC On Admission Date Seen by Provider: Sep 02, 2022 87-year-old female with a past medical history of recent COVID infection and COPD who presented to the emergency department due to weakness and altered mental status. She was unable to provide me much history and just told me multiple times that she was very cold. She has no family at bedside. She was found to have a urinary tract infection and was admitted for further man agement. Subjective/Events-last exam Pt reports feeling much better today. No complaints. Eating a poptart. Focused Exam Lactate Level 08/31/22 14:45: Lactic Acid Level 1.70 Time of Focused Exam: 15:45 Objective Exam Vital Signs Vital Signs Date Time Temp Pulse Resp B/P (MAP) Pulse Ox O2 Delivery O2 Flow Rate FiO2 09/02/22 08:00 Room Air 09/02/22 07:55 37.1 85 18 123/58 (79) 91 1.00 Capillary Refill : Less Than 3 Seconds General Appearance: No Apparent Distress, Chronically ill, Thin Cardiovascular: Regular Rate, Rhythm Neurologic/Psychiatric: Alert, Oriented x3 Results/Procedures Lab Laboratory Tests 09/02/22 05:20 Patient resulted labs reviewed. Imaging: Reviewed Imaging Report Assessment/Plan Assessment and Plan Assess & Plan/Chief Complaint Sepsis due to UTI Metabolic encephalopathy due to sepsis pOA Cachexia Continue IV abx Probable enterococcus on urine culture and BC with NGTD Speech consult for cognitive eval Mentation improved PT/OT student services counselor for likely SNF placement vs IRF Ensure TID DVT ppx: Lovenox Diagnosis/Problems Diagnosis/Problems (1) Sepsis Status: Acute Qualifiers: Sepsis type: sepsis due to unspecified organism Sepsis acute organ dysfunction status: unspecified Qualified Codes: A41.9 - Sepsis, unspecified organism (2) UTI (urinary tract infection) Status: Acute Qualifiers: Urinary tract infection type: acute cystitis Hematuria presence: without hematuria Qualified Codes: N30.00 - Acute cystitis without hematuria (3) Altered mental status Status: Acute Qualifiers: Altered mental status type: delirium Qualified Codes: R41.0 - Disorientation, unspecified (4) Emaciation Status: Acute (5) Smoker Status: Acute (6) Generalized weakness Status: Acute (7) Dehydration Status: Acute (8) Debility Status: Acute (9) COPD (chronic obstructive pulmonary disease) Status: SUSANA Chung MD Sep 02, 2022 09:34
[2022-09-02] MEDS: ENOXAPARIN INJECTION 30 MG/0.3 ML SYR SC SCH (10:55)
[2022-09-02 11:40] VITALS: BP 127/61
--- NOTE | 2022-09-02 11:52 | Physical Therapy Daily Note ---
PT Daily Note-Current Subjective Patient confused this a.m. Reluctantly agrees to ambulation. Pain Section J - Health Conditions 1. Rarely or not at all 2. Occasionally 3. Frequently 4. Almost constantly 8. Unable to answer Pain Effect on Sleep: 8 Pain Interference with Therapy: 8 Pain Interference w/Day-to-Day: 8 Mental Status Patient Orientation: Person Attachments: Cuevas Catheter, IV Transfers SCALE: Activities may be completed with or without assistive devices. 2-Mfkvctbfua-qgmxhvb completes the activity by him/herself with no assistance from a helper. 5-Set-up or Clean-up Assistance-helper sets up or cleans up; patient completes activity. [place] assists only prior to or following the activity. 4-Supervision or Touching Assistance-helper provides verbal cues and/or touching/steadying and/or contact guard assistance as patient completes activity. Assistance may be provided throughout the activity or intermittently. 3-Partial/Moderate Assistance-helper does LESS THAN HALF the effort. [place] lifts, holds or supports trunk or limbs, but provides less than half the effort. 2-Substantial/Maximal Assistance-helper does MORE THAN HALF the effort. [place] lifts or holds trunk or limbs and provides more than half the effort. 1-Yvdnnvdpz-sfbdkf does ALL the effort. Patient does none of the effort to complete the activity. Or, the assistance of 2 or more helpers is required for the patient to complete the activity. If activity was not attempted, code reason: 7-Patient Refused. 9-Not Applicable-not attempted and the patient did not perform the activity before the current illness, exacerbation or injury. 10-Not Attempted due to Environmental Limitations-(lack of equipment, weather restraints, etc.). 88-Not Attempted due to Medical Conditions or Safety Concerns. Sit to Stand (QC): 3 (mod assist) Gait Training Distance: 30' Walk 10 feet (QC): 3 (mod assist) Walk 50 ft with 2 Turns(QC): 7 Gait Assistive Device: FWW extended UE's with FWW use with step to gait sequence Assessment Patient refused to ambulate farther. Patient required VC's for body placement in FWW and patient unable perform on this date. Distance with gait improved on this date. Patient ceased treatment and declined to perform exercises. Physician notified. Patient remains up in recliner with chair alarm activated and call light in hand. PT Halfway Goals Bleaching Machine Operator Goals PT Bleaching Machine Operator Goals Time Frame: Sep 13, 2022 Roll Left & Right (QC): 4 Sit to Lying (QC): 4 Lying-Sitting on Side/Bed(QC): 4 Sit to Stand (QC): 4 Chair/Pzi-za-[place] Xfer(QC): 4 Toilet Transfer (QC): 4 Walk 10 feet (QC): 4 Walk 50ft with 2 Turns (QC): 4 Walk 150 ft (QC): 4 PT Plan Treatment/Plan Treatment Plan: Continue Plan of Care Treatment Plan: Bed Mobility, Education, Functional Activity Pj, Functional Strength, Gait, Safety, Therapeutic Exercise, Transfers Treatment Duration: Sep 13, 2022 Frequency: 6 times per week Estimated Hrs Per Day: .25 hour per day Time Time In: 1110 Time Out: 1120 DATE: Sep 02, 2022 Total Billed Treatment Time: 10 Total Billed Treatment 1 visit GT 10 min ZEENAT SERNA PT Sep 02, 2022 11:52
--- NOTE | 2022-09-02 12:09 | Discharge Summary ---
Diagnosis/Chief Complaint Date of Admission Aug 31, 2022 at 16:04 Date of Discharge Discharge Date: Sep 02, 2022 Admission Diagnosis Sepsis Primary Care No,Local Physician Discharge Diagnosis (1) Sepsis Status: Acute (2) UTI (urinary tract infection) Status: Acute (3) Altered mental status Status: Acute (4) Emaciation Status: Acute (5) Smoker Status: Acute (6) Generalized weakness Status: Acute (7) Dehydration Status: Acute (8) Debility Status: Acute (9) COPD (chronic obstructive pulmonary disease) Status: Chronic Discharge Summary Discharge Physical Exam Allergies: Coded Allergies: No Known Drug Allergies (Unverified , 09/02/22) Vitals & I&Os Vital Signs Date Time Temp Pulse Resp B/P (MAP) Pulse Ox O2 Delivery O2 Flow Rate FiO2 09/02/22 11:40 36.9 83 18 127/61 (83) 92 Nasal Cannula 1.00 General Appearance: No Apparent Distress, Chronically ill, Cachetic Cardiovascular: Regular Rate, Rhythm, No Murmur Neurologic/Psychiatric: Alert, Oriented x3 Hospital Course Pt was admitted to the hospital due to metabolic encephalopathy from a urinary tract infection. She was treated with Rocephin initially and switched to ampicillin after urine cultures returned. She was seen by PT/OT and deemed and appropriate for admission to inpatient rehab. She was discharged there in stable and improved condition. Labs (last 24 hrs) Microbiology 08/31/22 Blood Culture - Preliminary, Resulted No growth 08/31/22 Urine Culture - Final, Complete Enterococcus faecalis Enterococcus faecalis#2 Patient resulted labs reviewed. Pending Labs Imaging: Reviewed Imaging Report Discussion & Recommendations Discharge Planning: >30 minutes discharge planning Discharge Home Medications: Active Scripts Active Reported Allergy Relief (Loratadine) 10 Mg Tablet 10 Mg PO DAILY Tylenol (Acetaminophen) 325 Mg Tablet 650 Mg PO Q6H PRN Instructions to patient/family Please see electronic discharge instructions given to patient. Problem Qualifiers (1) Sepsis: Sepsis type: sepsis due to unspecified organism Sepsis acute organ dysfunction status: unspecified Qualified Codes: A41.9 - Sepsis, unspecified organism (2) UTI (urinary tract infection): Urinary tract infection type: acute cystitis Hematuria presence: without hematuria Qualified Codes: N30.00 - Acute cystitis without hematuria (3) Altered mental status: Altered mental status type: delirium Qualified Codes: R41.0 - Disorientation, unspecified ANETA,SUSANA M MD Sep 02, 2022 12:09
--- NOTE | 2022-09-02 12:35 | ST Cognitive Linguistic Eval ---
Speech Evaluation-General Medical Diagnosis Sepsis/UTI Onset Date: Aug 31, 2022 Therapy Diagnosis Therapy Diagnosis: Suspected Confusion Precautions Precautions: Fall Precautions/Isolations: Fall Prevention, Standard Precautions Referral Referring Physician: Dr. Mackey Reason for Referral: Evaluation/Treatment Medical History Pertinent Medical History: COPD Reviewed History: Yes Social History Current Living Status: Alone Speech PLF-Current Status Prior Level of Function The patient was unable to provide prior level of function information or past medical history to the clinician. The patient continued to discuss "horses in [place]," requiring maximum verbal redirection for limited accuracy. Subjective The patient was seated upright in a recliner, awake and alert, upon entrance to her room by the clinician. The patient greeted the clinician appropriately and was, initially, agreeable to participation in the cognitive linguistic evaluation. Language Eval: Auditory Comprehends Simple Yes/No Ques: Functional Indent/Objects Multiple Recinos: Functional Follows 1-Step Commands: Mild (Simple, one-step commands.) Follows General Conversations: Moderate Language Eval: Verbal Language Completes Spontaneous Greeting: Functional Produces Auto, Serial Info: Functional Word Finding: Severe Requests Basic Needs: Functional States Basic Personal Info: Functional Language Evaluation: Reading The patient was asked to read short phrases and identify black and white shapes. The patient reported she is unable to complete the tasks due to poor vision. Per patient, "I was supposed to get new ones of these years ago.' (in reference to her glasses). Cognitive Patient Orientation The patient was oriented to self and state. The patient was unable to provide a "best guess" at year or day of the week. Objective Cognitive Domain Attention: Moderate Memory: Moderate Due to the patient's confusion, accurate ratings of cognitive domains are not able to be provided. Objective Formal/Standardized Tests [facility] Mental Status Exam (UMS) Results The patient displayed a result of +2/30 on the SLUMS correlating to a score of "dementia" per protocol rubric. Oral Motor/Speech Production The patient does not display dysarthria or apraxia of speech at this time. The patient is 100% intelligible in known and unknown contexts. Impression Initially, the patient agreed to structured conversation and participation in the cognitive linguistic assessment. As the assessment progressed, the patient required increasing amounts of verbal redirection to task and topic, as well as, verbal encouragement for completion. With continued verbal encouragement for participation, the patient stated, "I just want to go home. I have too many things I need to get done there." At this time, the patient displays behaviors most consistent with confusion. Cognitive (specifically, memory) stimulability exercises were attempted by the clinician with poor participation and accuracy. The patient continues to redirect the evaluation to "horses in [place]" or her "crocheting" at home. Regardless of maximum redirection, limited accuracy was achieved. Due to the patient's current level of confusion and decreased accuracy through stimulability trials, participation in skilled speech pathology is not warranted at this time. Speech-Plan Treatment Plan Speech Therapy Treatment Plan: Discontinue ST Treatment Duration: Sep 02, 2022 Frequency: 1 time per week Estimated Hrs Per Day: .25 hour per day Rehab Potential: Guarded Safety Risks/Education Teaching Recipient: Patient Teaching Methods: Discussion Response to Teaching: Unable to Comprehend Education Topics Provided: Results, Recommendations, Plan of Care Time Speech Therapy Time In: 11:45 Speech Therapy Time Out: 12:05 DATE: Sep 02, 2022 Total Billed Time: 20 Billed Treatment Time 1, NAYAN COOPER [facility] ST Sep 02, 2022 12:35
== END 2022-09-02 13:30 | DRG 871 ==
LOC: EDUNIT# 14:32 → ER 14:32 → 4TH 16:04
PROVIDERS: ADMIT Internal Medicine; ATTEND Family Medicine
DX: A41.81 Sepsis due to Enterococcus (principal); G93.41 Metabolic encephalopathy; N39.0 Urinary tract infection, site not specified; R64 Cachexia; Z68.1 Body mass index [BMI] 19.9 or less, adult; E86.0 Dehydration; J44.9 Chronic obstructive pulmonary disease, unspecified; F17.210 Nicotine dependence, cigarettes, uncomplicated; H54.7 Unspecified visual loss; Z66 Do not resuscitate; Z86.16 Personal history of COVID-19; Z79.52 Long term (current) use of systemic steroids
CPT/HCPCS: 36415; 51702; 70450; 71045; 80048; 80053; 81000; 82150; 83605; 83690; 83735; 84443; 84484; 85025; 85610; 85652; 85730; 86141; 87040; 87077; 87088; 87186; 93005; 93041; 94760

== ENCOUNTER 2022-09-02 11:18 | Inpatient (IN) | payer MEDICARE, MEDICAID ==
[~2022-09-02] VITALS: Ht 170.2 cm; Wt 48.7 kg
[~2022-09-02 11:18] MED LIST changes: +ACET325T38 PO; +LORA-1025 PO
[2022-09-02 14:02] VITALS: BP 117/60
--- NOTE | 2022-09-02 14:44 | Occupational Therapy Eval ---
OT Evaluation-General/PLF Medical Diagnosis Admission Date Sep 02, 2022 at 13:40 Medical Diagnosis: Metabolic Encephalopathy Onset Date: Aug 29, 2022 Therapy Diagnosis Therapy Diagnosis: decreased ADL status Precautions Precautions/Isolations: Fall Prevention, Standard Precautions, Pressure Ulcer Referral Physician: Marisela Vasquez Reason: Evaluation/Treatment Medical History Pertinent Medical History: COPD Additional Medical History COVID, COPD Current History 09/01/22 ED due to AMS and weakness, found to have UTI. 09/02 transfer to ARU. Social History Home: Apartment Current Living Status: Alone Entry Into Home: Level Entry ADL-Prior Level of Function SCALE: Activities may be completed with or without assistive devices. 5-Mjungwvykd-kdkjfqw completes the activity by him/herself with no assistance from a helper. 5-Set-up or Clean-up Assistance-helper sets up or cleans up; patient completes activity. [place] assists only prior to or following the activity. 4-Supervision or Touching Assistance-helper provides verbal cues and/or touching/steadying and/or contact guard assistance as patient completes activity. Assistance may be provided throughout the activity or intermittently. 3-Partial/Moderate Assistance-helper does LESS THAN HALF the effort. [place] lifts, holds or supports trunk or limbs, but provides less than half the effort. 2-Substantial/Maximal Assistance-helper does MORE THAN HALF the effort. [place] lifts or holds trunk or limbs and provides more than half the effort. 8-Csazrgdpr-dhmpgu does ALL the effort. Patient does none of the effort to complete the activity. Or, the assistance of 2 or more helpers is required for the patient to complete the activity. If activity was not attempted, code reason: 7-Patient Refused. 9-Not Applicable-not attempted and the patient did not perform the activity before the current illness, exacerbation or injury. 10-Not Attempted due to Environmental Limitations-(lack of equipment, weather restraints, etc.). 88-Not Attempted due to Medical Conditions or Safety Concerns. ADL PLOF Comments Pt reports her daughter comes over to assist her with showering and dressing as needed. Later on in conversation, pt denies needing assistance from others. Pt's PLOF unknown at this time. Pt used FWW at PLOF Pt's daughter arrived during tx, indicates pt is able to complete ADLs independently, but her daughter is present in the shower in case pt were to have difficulty getting in/out of tub, no physical assistance provided during shower. Self Care: Needed Some Help Functional Cognition: Independent DME/Equipment: Bath Bench, Tub/Shower OT Current Status Subjective Pt agreeable to OT evaluation/tx with some encouragement. Pt kept repeating that she wants to go home and is waiting on a ride. OT educated pt on ARU process/e xpectations, but due to pt's confusion she had difficulty understanding. Pt very confused requiring moderate encouragement and coaxing to perform almost all activities. Mental Status/Objective Patient Orientation: Person, Confused Attachments: Cuevas Catheter, IV Current Glasses/Contacts: Yes Hand Dominance: Right Upper Extremity ROM WFL, BUE shoulder flexion to approx 150 degrees Upper Extremity Coordination WFL Upper Extremity Sensation WFL Upper Extremity Strength grossly 3/5 BUEs, pt had difficulty following instructions with testing. ADL-Treatment Eating (QC): 5 Oral Hygiene (QC): 4 (Supervison) Shower/Bathe Self (QC): 4 (Pt able to wash/dry all parts, but required VCS for sequencing and CGA in stand.) Upper Body Dressing (QC): 4 Lower Body Dressing (QC): 4 (CGA) On/Off Footwear (QC): 4 (Supervision) Toileting Hygiene (QC): 4 Other Treatments OT evaluation complete. OT/PT cotreat due to skill of 2 clinicians required which a vocational rehabilitation teacher could not perform in order to coordinate UE/LEs, decrease fall risk, and due to pt's limitations in strength, activity tolerance, mobility/transfers and confusion. OT focused on UE placement, cues for sequencing and safety and ADLs. PT focused on LE placement, gross overall movement, mobility/transfers. Pt performed functional mobility/transfers including car transfer, ambulation using FWW, w/c mobility, bed mobility. Pt then completed dressing/ADLS. Pt stood in parallel bars, completing UE reaching task, ring arc activity. Pt confused during task, requiring VCs for direction and to continue with task, as pt kept wanting to sit down. Pt taken back to her room, transferring to bed. Post tx, pt in bed, call light in reach and all needs met, bed alarm activated. Patient performs rolling and supine <-> sit with SBA (has some difficulty and does it very slowly but can do it without assist), sit <-> stand and transfers min assist, car transfer min assist. Patient needs cues for hand placement and safety. Education OT Patient Education: Correct positioning, Energy conservation, Modified ADL techniques, Progress toward Goal/Update tx plan, Purpose of tx/functional activities, Rehab process Teaching Recipient: Patient Teaching Methods: Discussion Response to Teaching: Verbalize Understanding BIMS CAM BIMS Expression of Ideas and Wants: Without Difficulty Understanding Verbal Content: Usually Understands Brief Interview/Mental Status: Yes IRF CECILE BIMS: IRF CECILE BIMS Response (Comments) Value Repitition of Three Words Three 3 Recalls Socks No, Could Not Recall 0 Recalls Blue No, Could Not Recall 0 Recalls Bed No, Could Not Recall 0 Year Missed by 5 Yrs/No Answer 0 Month Missed by 1 Mo/No Answer 0 Day Incorrect or No Answer 0 Total [address] Mental [address] No CAM Mental Status Change/Baseline: 1 Inattention: 1 Disorganized thinkin Altered level of consciousness: 0 OT Short Term Goals Short Term Goals Time Frame: Sep 19, 2022 Shower/bathe self: 5 Upper body dressin Lower body dressin Putting on/taking off footwear: 5 OT Jail Goals Plasterer Rough Goals Time Frame: Sep 26, 2022 Eating (QC): 6 Oral Hygiene (QC): 6 Toileting Hygiene (QC): 6 Shower/Bathe Self (QC): 6 Upper Body Dressing (QC): 6 Lower Body Dressing (QC): 6 On/Off Footwear (QC): 6 Additional Goals: 1-Demonstrate ADL Tasks, 2-Verbalize Understanding, 3- ImproveStrength/Pj 1=Demonstrate adherence to instructed precautions during ADL tasks. 2=Patient will verbalize/demonstrate understanding of assistive devices/modifications for ADL. 3=Patient will improve strength/tolerance for activity to enable patient to perform ADL's. OT Education/Plan Problem List/Assessment Assessment: Decreased Activ Tolerance, Decreased Safety Aware, Decreased UE Strength, Impaired Funct Balance, Impaired I ADL's, Impaired Self-Care Skills Discharge Recommendations Plan/Recommendations: Continue POC Treatment Plan/Plan of Care Patient would benefit from OT for education, treatment and training to promote independence in ADL's, mobility, safety and/or upper extremity function for ADL's. Plan of Care: ADL Retraining, Functional Mobility, Group Exercise/Act as Ind, UE Funct Exercise/Act Treatment Duration: Sep 26, 2022 Frequency: At least 5 of 7 days/Wk (IRF) Estimated Hrs Per Day: 1.5 hours per day Agreement: Yes Time Start Time: 13:50 Stop Time: 16:20 DATE: Sep 02, 2022 Total Time Billed (hr/min): 90 Billed Treatment Time [id number] OT eval, [id number] Cotreat (80') 1, EVM (10'), ADL (20'), FA 4 (60') PRICILLA JOLLY OT Sep 02, 2022 14:44
--- NOTE | 2022-09-02 15:13 | PM&R Post Admission Assessment ---
PM&R Date of Visit: Sep 02, 2022 Time of Visit: 14:00 History of Present Illness CC: Acute metabolic encephalopathy HPI: This is an 87yoWF who presents to the ARU in need of aggressive therapy to resolve encephalopathy and weakness following an admit for UTI and recent COVID. Patient is a poor historian currently but is improving by the day. Unable to evaluate details from the patient. She denies pain. No family at bedside. Cici ambrocio apparently lives alone and could be at risk for NH placement at [facility]. Patient still maintained on IV abx for UTI. Weight loss and frail status noted. Past Puzpdeg-Evpjos-Kkfwiy Hx Past Med/Social Hx: Reviewed Nursing Past Med/Soc Hx, Reviewed and Corrections made Patient Social History Marrital Status: single Employed/Student: retired Alcohol Use: Denies Use Smoking Status: Never a Smoker Immunizations Up To Date Date of Influenza Vaccine: May 08, 2022 Seasonal Allergies Seasonal Allergies: Yes Family History No Pertinent Family Hx Self Care: Needed Some Help Functional Cognition: Independent Eatin Oral Hygiene: 4 (Supervison) Shower/Bathe Self: 4 (Pt able to wash/dry all parts, but required VCS for sequencing and CGA in stand.) Upper Body Dressin Lower Body Dressin (CGA) On/Off Footwear: 4 (Supervision) Toileting Hygiene: 4 PM&R Allergy/Meds/Data Review Allergies Coded Allergies: No Known Drug Allergies (Unverified , 09/02/22) Home Medications Scheduled Loratadine (Allergy Relief), 10 MG PO DAILY, (Reported) Scheduled PRN Acetaminophen (Tylenol), 650 MG PO Q6H PRN for PAIN-MILD (1-4), (Reported) Discontinued Medications Prednisone (Prednisone), 10 MG PO DAILY Discontinued Reason: No Longer Taking Current Medications Current Medications Reviewed Review of Systems Constitutional: see HPI, malaise, weakness EENTM: no symptoms reported Respiratory: no symptoms reported Cardiovascular: no symptoms reported Gastrointestinal: no symptoms reported Genitourinary: frequency Musculoskeletal: no symptoms reported Skin: no symptoms reported Psychiatric/Neurological: Depressed, Other (confusion) All Other Systems Reviewed Negative Unless Noted: Yes Physical Exam Physical Exam Vital Signs Vital Signs - First Documented 09/02/22 14:02 Temp 36.1 Pulse 69 Resp 18 B/P (MAP) 117/60 (79) Pulse Ox 92 O2 Delivery Nasal Cannula O2 Flow Rate 2.00 Capillary Refill : Height, Weight, BMI Height: '" Weight: lbs. oz. kg; 17.36 BMI Method: General Appearance: No Apparent Distress, WD/WN, Chronically ill Eyes: Bilateral Eye Normal Inspection, Bilateral Eye PERRL HEENT: PERRL/EOMI, Normal ENT Inspection, Pharynx Normal Neck: Full Range of Motion, Normal Inspection, Non Tender, Supple, Carotid Bruit Respiratory: Chest Non Tender, Lungs Clear, Normal Breath Sounds, No Accessory Muscle Use, No Respiratory Distress Cardiovascular: Regular Rate, Rhythm, No Edema, No Gallop, No JVD, No Murmur, Normal Peripheral Pulses Gastrointestinal: Normal Bowel Sounds, No Organomegaly, No Pulsatile Mass, Non Tender, Soft Back: Normal Inspection, No CVA Tenderness, No Vertebral Tenderness Extremity: Normal Capillary Refill, Normal Inspection, Normal Range of Motion, Non Tender, No Calf Tenderness, No Pedal Edema Neurologic/Psychiatric: Alert, Oriented x3, Abnormal Gait, Depressed Affect, Disoriented, Motor Weakness Skin: Normal Color, Warm/Dry Lymphatic: No Adenopathy PM&R Medical Assessment & Plan REHAB/MEDICAL ASSESSMENT AND PLAN: REHAB IMPAIRMENT GROUP: Encephalopathy from UTI ETIOLOGIC DIAGNOSIS: Encephalopathy from UTI The comorbidities that impact the patients function and/or functional outcome by: advanced age, frail status, confusion, acute UTI, fall risk, recent COVID REHAB PLAN: The patient is being admitted to our comprehensive inpatient rehabilitation facility and can tolerate the intensity of service consisting of at least: 180 minutes of therapy a day, 5 out of 7 days a week Rehab treatment will consist of: PT OT will focus on regaining function and stamina with the use of AD in order to regain independent ADL's and prevent falls The patient/family has a good understanding of our discharge process and will benefit from an interdisciplinary inpatient rehabilitation program. The patient has potential to make improvement and is in need of at least two of the following multidisciplinary therapies including but not limited to physical, occupational, speech, and prosthetics and orthotics. Additionally the patient will need services from respiratory, nutritional services, wound care, psychology, etc. (Customize this to each patient). Given the patients complex condition and risk of further medical complications, rehabilitation services cannot be safely or effectively provided at a lower level of care such as a residential facility. BARRIERS TO DISCHARGE: Frail status with advanced age with confusion ESTIMATED LOS: 10 days DISPOSITION: Home vs NH RELEVANT CHANGES SINCE PREADMISSION SCREENING: I have compared the patients medical and functional status at the time of the preadmission screening and there are: no changes PROGNOSIS: Fair REHABILITATION GOALS: 1. PT OT will focus on regaining function and stamina with the use of AD in order to regain independent ADL's and prevent falls All the above goals were reviewed with the patient and he/she is in agreement. By signing this document, I acknowledge that I have personally performed a full physical examination on this patient within 24 hours of admission to this inpatient rehabilitation facility and have determined the patient to be able to tolerate the above course of treatment at an intensive level for a reasonable period of time. I will be completing a detailed individualized Plan of Care for this patient by day #4 of the patients stay based upon the Preadmission Screen, the Post-Admission Evaluation, and the therapy evaluations. Admission Dx/Comorbidities: (1) Encephalopathy acute ICD Codes: G93.40 - Encephalopathy, unspecified (2) UTI (urinary tract infection) Status: Acute ICD Codes: N39.0 - Urinary tract infection, site not specified (3) Debility Status: Acute ICD Codes: R53.81 - Other malaise (4) COPD (chronic obstructive pulmonary disease) Status: Chronic ICD Codes: J44.9 - Chronic obstructive pulmonary disease, unspecified (5) Emaciation Status: Acute ICD Codes: R64 - Cachexia (6) Generalized weakness Status: Acute ICD Codes: R53.1 - Weakness (7) Advanced age ICD Codes: R54 - Age-related physical debility (8) DNR (do not resuscitate) ICD Codes: Z66 - Do not resuscitate Assessment/Plan Assessment and Plan Assess & Plan/Chief Complaint Assessment: Acute metabolic encephalopathy UTI Advanced age Cachexia Allergies Recent COVID Fall risk Plan: PT OT Increase po nutrition Complete abx ELLIS JOSUE DO Sep 02, 2022 15:12
[2022-09-02] MEDS ORDERED: LOPERAMIDE 2 MG (IMODIUM) TABLET PO PRN (15:15)
[2022-09-02] MEDS ORDERED: ACETAMINOPHEN 325 MG TABLET PO PRN (15:15)
[2022-09-02] MEDS ORDERED: ONDANSETRON 4 MG (ZOFRAN) ORAL DISSOLVE TAB PO PRN ×2 (15:15)
[2022-09-02] MEDS ORDERED: DOCUSATE SODIUM 100 MG (COLACE) CAP PO PRN (15:15)
[2022-09-02] MEDS ORDERED: CALCIUM CARBONATE 500 MG (TUMS) TAB.CHEW PO PRN ×2 (15:15)
[2022-09-02] MEDS ORDERED: LACTULOSE SYRUP 10GM/15ML (ENULOSE) 30ML UDC PO PRN ×2 (15:15)
[2022-09-02] MEDS ORDERED: diphenhydrAMINE 25 MG TAB (BENADRYL) PO PRN (15:15)
[2022-09-02] MEDS ORDERED: MILK OF MAGNESIA 400 MG/5 ML 30 ML UDC PO PRN (15:15)
[2022-09-02] MEDS ORDERED: ANTACID SUSP 30 ML UDC (MYLANTA) PO PRN (15:15)
[2022-09-02] MEDS ORDERED: RT-ALBUTEROL SULF 2.5 MG/3 ML PRE-MIX VIAL INH PRN (15:15)
[2022-09-02] MEDS ORDERED: ONDANSETRON 4 MG/2 ML (SDV) Z0FRAN IV PRN (15:15)
[2022-09-02] MEDS ORDERED: ALPRAZolam 0.25 MG (XANAX) TAB PO PRN (15:15)
[2022-09-02] MEDS ORDERED: polyethylene glycoL POWDER 17 GM (MIRALAX) PACK PO PRN (15:15)
[2022-09-02] MEDS ORDERED: MELATONIN 3 MG TABLET PO PRN (15:15)
[2022-09-02] MEDS ORDERED: BISACODYL 10 MG SUPP (DULCOLAX) PR PRN ×2 (15:15)
[2022-09-02] MEDS ORDERED: guaiFENesin/CODEINE (ROBITUSSIN AC) 10ML UDC PO PRN (15:15)
[2022-09-02] MEDS ORDERED: FLEET ENEMA ADULT 1 EA BTL PR PRN (15:15)
--- NOTE | 2022-09-02 15:22 | Physical Therapy Evaluation ---
PT Evaluation-General Medical Diagnosis Admission Date Sep 02, 2022 at 13:40 Medical Diagnosis: Metabolic Encephalopathy Onset Date: Aug 29, 2022 Therapy Diagnosis Therapy Diagnosis: impaired mobility Precautions Precautions/Isolations: Fall Prevention, Standard Precautions, Pressure Ulcer Referral Physician: Shelby Antonio DO Reason for Referral: Evaluation/Treatment Medical History Pertinent Medical History: COPD Reviewed History: Yes Social History Home: Apartment Current Living Status: Alone Entry Into Home: Level Entry Prior Prior Level of Function SCALE: Activities may be completed with or without assistive devices. 9-Ebcddqzolf-ptuuxav completes the activity by him/herself with no assistance from a helper. 5-Set-up or Clean-up Assistance-helper sets up or cleans up; patient completes activity. [place] assists only prior to or following the activity. 4-Supervision or Touching Assistance-helper provides verbal cues and/or touching/steadying and/or contact guard assistance as patient completes activity. Assistance may be provided throughout the activity or intermittently. 3-Partial/Moderate Assistance-helper does LESS THAN HALF the effort. [place] lifts, holds or supports trunk or limbs, but provides less than half the effort. 2-Substantial/Maximal Assistance-helper does MORE THAN HALF the effort. [place] lifts or holds trunk or limbs and provides more than half the effort. 2-Fpwdbdhji-eollnf does ALL the effort. Patient does none of the effort to complete the activity. Or, the assistance of 2 or more helpers is required for the patient to complete the activity. If activity was not attempted, code reason: 7-Patient Refused. 9-Not Applicable-not attempted and the patient did not perform the activity before the current illness, exacerbation or injury. 10-Not Attempted due to Environmental Limitations-(lack of equipment, weather restraints, etc.). 88-Not Attempted due to Medical Conditions or Safety Concerns. Bed Mobility: 6 Transfers (B,C,W/C): 6 Gait: 6 Indoor Mobility (Ambulation): Independent PT Evaluation-Current Subjective Patient in recliner pre tx, agrees to PT, has no complaints of pain but states she is very cold. Will be co-treating with OT due to poor patient mobility, strength, endurance, severe debility, coordinate UE and LE during activity, safety and reduce risk of falls. Pain Section J - Health Conditions 1. Rarely or not at all 2. Occasionally 3. Frequently 4. Almost constantly 8. Unable to answer Pain Effect on Sleep: 1 Pain Interference with Therapy: 1 Pain Interference w/Day-to-Day: 1 Pt/Family Goals to be independent at home Objective Patient Orientation: Person, Confused Attachments: Oxygen, Cuevas Catheter, IV ROM/Strength ROM Lower Extremities WNL Strength Lower Extremities Patient cannot follow directions for muscle testing but she appears to have at least 3+/5 in BLE grossly Sensory Vision: Wears Glasses Hearing: Hearing Aid/Aides Hand Dominance: Right Sensation Right Lower Extremit: Intact Sensation Left Lower Extremity: Intact Transfers Roll Left & Right (QC): 4 Sit to Lying (QC): 4 Lying to Sitting/Side of Bed(Q: 4 Sit to Stand (QC): 3 Chair/Xsp-ub-Bitos Xfer(QC): 3 Toilet Transfer (QC): 3 Car Transfer (QC): 3 Patient performs rolling and supine <-> sit with SBA (has some difficulty and does it very slowly but can do it without assist), sit <-> stand and transfers min assist, car transfer min assist. Patient needs cues for hand placement and safety. Gait Does the Patient Walk?: Yes Mode of Locomotion: Walk Anticipated Mode of Locomotion: Walk Walk 10 feet (QC): 3 Walk 50 ft with 2 Turns(QC): 88 Walk 150 ft (QC): 88 Walking 10ft/uneven surface-QC: 88 Distance: 15' Gait Assistive Device: FWW Comments/Gait Description Patient can ambulate 15' with a rolling walker with min assist. Patient needs assist guiding walker and with steadying assist. Wheelchair Training Does the Pt Use a Wheelchair?: Yes Distance: 100' Wheel 50 ft with 2 turns (QC): 3 Wheel 150 ft (QC): 88 Type of Wheelchair: Manual min assist Stairs 1 Step (curb) (QC): 88 4 Steps (QC): 88 12 Steps (QC): 88 Balance Sitting Static: Normal Sitting Dynamic: Normal Standing Static: Fair Standing Dynamic: Poor Picking up an Object (QC): 4 (CGA using a multi skilled operator) Treatment Patient also performed a standing UE reaching activity, working on standing balance and leg endurance. PT performed bed mobility and transfers, ambulation, WC mobility, standing activity, OT performed dressing, UE reaching activity, UE positioning and safety during activity. Assessment/Needs Patient in bed post tx with nurse call, phone, tray, all needs met, bed alarm on. Patient is very confused and needs coaxing to perform almost any activity. Rehab Potential: Fair PT Supervisor Cd Area Goals Supervisor Cd Area Goals PT Supervisor Cd Area Goals Time Frame: Sep 16, 2022 Roll Left to Right (QC): 6 Sit to Lying (QC): 6 Lying-Sitting on Side/Bed(QC): 6 Sit to Stand (QC): 4 Chair/Qun-hw-Xdlws Xfer(QC): 4 Toilet/Commode Transfer (QC): 4 Car Transfer (QC): 4 Walk 10 feet (QC): 4 Walk 10ft-Uneven Surface(QC): 4 Walk 50ft with 2 Turns (QC): 4 Walk 150 ft (QC): 4 Wheel 50 feet with 2 turns (QC: 6 Wheel 150 feet: 6 1 Step (curb) (QC): 4 4 Steps (QC): 4 12 Steps (QC): 88 Picking up an Object (QC): 4 all scores of 4=SBA PT Plan Problem List Problem List: Activity Tolerance, Functional Strength, Safety, Balance, Gait, Transfer, Bed Mobility, ROM Treatment/Plan Treatment Plan: Continue Plan of Care Treatment Plan: Bed Mobility, Education, Functional Activity Pj, Functional Strength, Group Therapy, Gait, Safety, Therapeutic Exercise, Transfers Treatment Duration: Sep 16, 2022 Frequency: At least 5 of 7 days/Wk (IRF) Estimated Hrs Per Day: 1.5 hours per day Patient and/or Family Agrees t: Yes Safety Risks/Education Patient Education: Gait Training, Transfer Techniques, Correct Positioning, W/C Management, Safety Issues Teaching Recipient: Patient Teaching Methods: Demonstration, Discussion Response to Teaching: Reinforcement Needed Discharge Recommendations Plan Patient will perform bed mobility and transfer training, balance and endurance training functional strengthening, stair training, gait training, and education, to improve functional mobility and independence at home. Therapy Discharge Recommendati: Home & Family, Post Acute PT Time Time In: 1340 Time Out: 1520 DATE: Sep 02, 2022 Total Billed Treatment Time: 90 Total Billed Treatment 1 visit EVM 10' FA 80' PT eval from [id number], OT eval from [id number], co-treat from [id number] BERNA MACKEY PT Sep 02, 2022 15:22
[2022-09-02 16:08] VITALS: BP 117/60
[2022-09-02] MEDS: AMPICILLIN FOR IV USE 1,000 MG in NS (IVPB) 50 ML IV SCH ×2 (16:51→22:51)
[2022-09-02 19:59] VITALS: BP 106/65
[2022-09-02] MEDS: DOCUSATE SODIUM 100 MG (COLACE) CAP PO SCH (21:00)
[2022-09-02] MEDS: SENNOSIDES 8.6 MG (SENOKOT) TAB PO SCH (21:00)
[2022-09-02] MEDS ORDERED: DOCUSATE SODIUM 100 MG (COLACE) CAP PO SCH (21:00)
[2022-09-02] MEDS: SENNA W/DOCUSATE (SENOKOT S) TABLET PO SCH (21:00)
[2022-09-02] MEDS: polyethylene glycoL POWDER 17 GM (MIRALAX) PACK PO SCH (21:00)
[2022-09-03] MEDS: AMPICILLIN FOR IV USE 1,000 MG in NS (IVPB) 50 ML IV SCH (05:13)
[2022-09-03 06:10] LABS: BASOPHILS % (AUTO) 0 % (0-10); EOSINOPHILS # (AUTO) 0.3 10^3/uL (0.0-0.3); EOSINOPHILS % (AUTO) 4 % (0-10); HEMATOCRIT 27 % (35-52); HEMOGLOBIN 9.1 g/dL (11.5-16.0); LYMPHOCYTES # (AUTO) 1.5 10^3/uL (1.0-4.0); LYMPHOCYTES % (AUTO) 19 % (12-44); MEAN CORPUSCULAR HEMOGLOBIN 31 pg (25-34); MEAN CORPUSCULAR HGB CONC 34 g/dL (32-36); MEAN CORPUSCULAR VOLUME 91 fL (80-99); MEAN PLATELET VOLUME 9.6 fL (9.0-12.2); MONOCYTES # (AUTO) 0.6 10^3/uL (0.0-1.0); MONOCYTES % (AUTO) 7 % (0-12); NEUTROPHILS # (AUTO) 5.3 10^3/uL (1.8-7.8); NEUTROPHILS % (AUTO) 68 % (42-75); PLATELET COUNT 268 10^3/uL (130-400); WHITE BLOOD COUNT 7.8 10^3/uL (4.3-11.0)
[2022-09-03 06:31] LABS: ALBUMIN 2.4 GM/DL (3.2-4.5); BILIRUBIN,TOTAL 0.4 MG/DL (0.1-1.0); CALCIUM 8.3 MG/DL (8.5-10.1); CREATININE SERUM 0.76 MG/DL (0.60-1.30); POTASSIUM 3.8 MMOL/L (3.6-5.0); TOTAL PROTEIN 5.4 GM/DL (6.4-8.2)
[2022-09-03] MEDS: RT-ALBUTEROL SULF 2.5 MG/3 ML PRE-MIX VIAL INH SCH ×2 (07:01→23:34)
--- NOTE | 2022-09-03 07:26 | PM&R Progress Note ---
Subjective HPI/CC On Admission Date Seen by Provider: Sep 03, 2022 Time Seen by Provider: 11:00 Subjective/Events-last exam 09/03/2022: Improved mentation Very frail Participation is good No falls No pain Switched IV abx to PO Review of Systems General: Fatigue, Malaise Neurological: Confusion Objective Exam Vital Signs Vital Signs Date Time Temp Pulse Resp B/P (MAP) Pulse Ox O2 Delivery O2 Flow Rate FiO2 09/03/22 21:18 Nasal Cannula 2.00 09/03/22 19:17 36.2 78 18 95/55 (68) 94 Capillary Refill : General Appearance: No Apparent Distress, WD/WN, Chronically ill HEENT: PERRL/EOMI, Normal ENT Inspection, Pharynx Normal Neck: Full Range of Motion, Normal Inspection, Non Tender, Supple, Carotid Bruit Respiratory: Chest Non Tender, Lungs Clear, Normal Breath Sounds, No Accessory Muscle Use, No Respiratory Distress Cardiovascular: Regular Rate, Rhythm, No Edema, No Gallop, No JVD, No Murmur, Normal Peripheral Pulses Gastrointestinal: Normal Bowel Sounds, No Organomegaly, No Pulsatile Mass, Non Tender, Soft Back: Normal Inspection, No CVA Tenderness, No Vertebral Tenderness Extremity: Normal Capillary Refill, Normal Inspection, Normal Range of Motion, Non Tender, No Calf Tenderness, No Pedal Edema Neurologic/Psychiatric: Alert, Oriented x3, Abnormal Gait, Depressed Affect, Disoriented, Motor Weakness Skin: Normal Color, Warm/Dry Lymphatic: No Adenopathy Results/Procedures Lab Laboratory Tests 09/03/22 05:19 Patient resulted labs reviewed. FIM Transfers Therapy Code Descriptions/Definitions Functional [place] Measure: 0=Not Assessed/NA 4=Minimal Assistance 1=Total Assistance 5=Supervision or Setup 2=Maximal Assistance 6=Modified [place] 3=Moderate Assistance 7=Complete IndependenceSCALE: Activities may be completed with or without assistive devices. 8-Ytstdhzalr-cdaunqq completes the activity by him/herself with no assistance from a helper. 5-Set-up or Clean-up Assistance-helper sets up or cleans up; patient completes activity. [place] assists only prior to or following the activity. 4-Supervision or Touching Assistance-helper provides verbal cues and/or touching/steadying and/or contact guard assistance as patient completes a ctivity. Assistance may be provided throughout the activity or intermittently. 3-Partial/Moderate Assistance-helper does LESS THAN HALF the effort. [place] lifts, holds or supports trunk or limbs, but provides less than half the effort. 2-Substantial/Maximal Assistance-helper does MORE THAN HALF the effort. [place] lifts or holds trunk or limbs and provides more than half the effort. 1-Gapbwutig-rgksgq does ALL the effort. Patient does none of the effort to complete the activity. Or, the assistance of 2 or more helpers is required for the patient to complete the activity. If activity was not attempted, code reason: 7-Patient Refused. 9-Not Applicable-not attempted and the patient did not perform the activity before the current illness, exacerbation or injury. 10-Not Attempted due to Environmental Limitations-(lack of equipment, weather restraints, etc.). 88-Not Attempted due to Medical Conditions or Safety Concerns. Roll Left to Right (QC): 4 Sit to Lying (QC): 4 Sit to Stand (QC): 3 Chair/Soy-sx-Jeflt Xfer(QC): 3 Car Transfer (QC): 3 Gait Training Does the Patient Walk?: Yes Walk 10 feet (QC): 3 Walk 50 ft with 2 Turns(QC): 88 Walk 150 ft (QC): 88 Walking 10ft/uneven surface-QC: 88 Gait Assistive Device: FWW Wheelchair Training Distance: 100' Wheel 50 ft with 2 turns (QC): 3 Wheel 150 ft (QC): 88 Stair Training 1 Step (curb) (QC): 88 4 Steps (QC): 88 12 Steps (QC): 88 Balance Picking up an Object (QC): 4 (CGA using a packaging assembler) ADL-Treatment Eating (QC): 5 Oral Hygiene (QC): 4 (Supervison) Shower/Bathe Self (QC): 4 (Pt able to wash/dry all parts, but required VCS for sequencing and CGA in stand.) Upper Body Dressing (QC): 4 Lower Body Dressing (QC): 4 (CGA) On/Off Footwear (QC): 4 (Supervision) Toileting Hygiene (QC): 4 Assessment/Plan Assessment and Plan Assess & Plan/Chief Complaint Assessment: Acute metabolic encephalopathy UTI Advanced age Cachexia Allergies Recent COVID Fall risk Plan: PT OT Increase po nutrition Complete abx 09/03/2022: Improved mentation Frail status Change IV abx to PO (1) Encephalopathy acute (2) UTI (urinary tract infection) Status: Acute (3) Debility Status: Acute (4) COPD (chronic obstructive pulmonary disease) Status: Chronic (5) Emaciation Status: Acute (6) Generalized weakness Status: Acute (7) Advanced age (8) DNR (do not resuscitate) ELLIS JOSUE DO Sep 03, 2022 07:26
--- NOTE | 2022-09-03 07:27 | Individualized Plan of Care ---
Individualized Plan of Care Rehab Nursing IPOC Order Admission Date Sep 02, 2022 at 13:40 Current Orders Orders Admission Arrival Bed Request (09/02/22 13:40) Admission Order(Inpt,Obs,Sdc) (09/02/22 15:10) Vital Signs: Per Unit Policy ( 08,16,00 (09/02/22 15:10) [place] Hose (09/02/22 15:10) Sequential Compression Device (09/02/22 15:10) Occupational Therapy Rehab Ord (09/02/22 15:10) Speech Therapy Rehab Orders (09/02/22 15:10) Cbc With Automated Diff (09/03/22 06:00) Comprehensive Metabolic Panel (09/03/22 06:00) Precautions (Aru) (09/02/22 15:10) Weekly Weight WEEK (09/02/22 15:10) Rehab-Intensity Of Therapy (09/02/22 15:10) Initiate Admission Nursing Pro .admission (09/02/22 15:10) Alprazolam Tablet (Xanax Tablet) (09/02/22 15:15) Calcium Carbonate Chew Tablet (Antacid C (09/02/22 15:15) Diphenhydramine Tablet (Benadryl Tablet) (09/02/22 15:15) Docusate Sodium Capsule (Colace Capsule) (09/02/22 21:00) Docusate Sodium Capsule (Colace Capsule) (09/02/22 15:15) Bisacodyl Suppository (Dulcolax Supposit (09/02/22 15:15) Lactulose Oral Solution (Enulose Oral So (09/02/22 15:15) Na Phos/Na Biphos Enema (Fleet Enema Constantine (09/02/22 15:15) Guaifenesin/Codeine Syrup (Robitussin Ac (09/02/22 15:15) Loperamide Tablet (Imodium Tablet) (09/02/22 15:15) Melatonin Tablet (Melatonin Tablet) (09/02/22 15:15) Polyethylene Glycol Powder Pkt (Miralax (09/02/22 21:00) Ondansetron Oral Dissolve Tab (Zofran (09/02/22 15:15) Senna S Tablet (Senokot S Tablet) (09/02/22 21:00) Acetaminophen Tablet/Caplet (Tylenol T (09/02/22 15:15) Initiate Admission Nursing Pro .admission (09/02/22 15:10) Asphalt Coater-Inpt Rehab Con (09/02/22 15:10) Rehab Nursing Orders-Ipoc (09/02/22 15:10) Physical Therapy Rehab Orders (09/02/22 15:10) Code/Resuscitation (09/02/22 15:13) General/Regular (09/02/22 Dinner) Ampicillin For Iv Use (Ampicillin For (09/02/22 17:00) Albuterol Pre-Mix Nebs (Rt) (Proventil (09/02/22 15:15) Docusate Sodium Capsule (Colace Capsule) (09/02/22 21:00) Bisacodyl Suppository (Dulcolax Supposit (09/02/22 15:15) Lactulose Oral Solution (Enulose Oral So (09/02/22 15:15) Melatonin Tablet (Melatonin Tablet) (09/02/22 15:15) Magnesium Hydroxide Oral Susp (Mom Oral (09/02/22 15:15) Polyethylene Glycol Powder Pkt (Miralax (09/02/22 15:15) Antacid Suspension (Mylanta Suspension (09/02/22 15:15) Sennosides Tablet (Senokot Tablet) (09/02/22 21:00) Calcium Carbonate Chew Tablet (Antacid C (09/02/22 15:15) Acetaminophen Tablet/Caplet (Tylenol T (09/02/22 15:15) Ondansetron Injection (Zofran Injectio (09/02/22 15:15) Ondansetron Oral Dissolve Tab (Zofran (09/02/22 15:15) Mat Initiate Protocol (09/02/22 15:13) Svn Small Volume Nebulizer (09/02/22 15:13) Catheter(Urinary) Discontinue (09/02/22 15:13) Iv Convert To Heplock (Order) (09/02/22 15:13) Ensure Plus Vanilla (09/02/22 15:19) Enoxaparin Injection (Lovenox Injection) (09/03/22 11:00) Albuterol Pre-Mix Nebs (Rt) (Proventil (09/03/22 08:00) Svn Small Volume Nebulizer (09/02/22 23:28) Albuterol Pre-Mix Nebs (Rt) (Proventil (09/03/22 08:00) Amoxicillin Capsule (Polymox Capsule) (09/03/22 09:00) Patient Visit (09/02/22 ) Pt Eval Moderate Complexity (09/02/22 ) Functional Activities, Ea 15 (09/02/22 ) Incentive Spirometry (Nursing) Q2H (09/03/22 12:27) Incentive Spirometry Initial (09/03/22 12:27) Incentive Spirometry (Nursing) Q2H (09/03/22 12:27) Rehab Nursing Orders: Ongoing Assess. of Cognitive Status, Ongoing Assess. of Function Status, Bladder Management, Bladder Scan, Bladder Training, Bowel Management, Bowel Training, Disease Management & Educaiton, DVT Prophylaxis, Fall Prevention, Fluid/Electrolyte/Nutrition Mgmt, Infection Prevention, Medication Management & Education, Management of Risks & Complications, Management of Skin Intergrity, Nutrition Management, Pain Management, Patient/Family Support, Safety Management Intensity of Therapy to be met Patient to be seen: Min.3h per day/5 of 7d PT IPOC Problem List: Activity Tolerance, Functional Strength, Safety, Balance, Gait, Transfer, ROM Treatment Plan: Continue Plan of Care Bed Mobility, Education, Functional Activity Pj, Functional Strength, Group Therapy, Gait, Safety, Therapeutic Exercise, Transfers Treatment Duration: Sep 16, 2022 Frequency: At least 5 of 7 days/Wk (IRF) Estimated Hrs Per Day: 1.5 hours per day OT IPOC Problems: Decreased Activ Tolerance, Decreased Safety Aware, Decreased UE Strength, Impaired Funct Balance, Impaired I ADL's, Impaired Self-Care Skills OT Treatment, Training and Edu: Yes Plan of Care: ADL Retraining, Functional Mobility, Group Exercise/Act as Ind, UE Funct Exercise/Act Treatment Duration: Sep 26, 2022 Frequency: At least 5 of 7 days/Wk (IRF) Estimated Hrs Per Day: 1.[address] IPOC Speech Therapy Treatment Plan: Continue Plan of Care Treatment Duration: Sep 03, 2022 Frequency: Modified Program (IRF) Estimated Hrs Per Day: Other Asphalt Coater/Case Mgmt Asphalt Coater/Case Managemen: Discharge Planning Dietitian/Athletics Teacher Dietitian/Athletics Teacher to monitor nutritional status and make changes and/or recommendations as needed and work with speech pathology on dietary upgrades as the occur. Physician IPOC Medical Issues being managed closely and that require the 24 hour availability of a physician: Recent COVID along with acute UTI causing acute encephalopathy will require close monitoring from physician to the chance of decompensation due to frail status Medical Issues: Bowel/Bladder Function, DVT Prophylaxis, Falls Precautions, Fluid/Electrolyte/Nutrition Balance, Infection Protection, Pain Management Brief Synthesis of Preadmission Screen, Post-Admission Evaluation, and Therapy Evaluations: PT OT will focus on regaining independence with ADL's and increasing ambulation and building stamina in order to return to independence Medical Prognosis: Fair Anticipated Length of Stay: 7 days ELLIS JOSUE DO Sep 03, 2022 07:27
[2022-09-03 08:00] VITALS: BP 126/63
[2022-09-03] MEDS ORDERED: RT-ALBUTEROL SULF 2.5 MG/3 ML PRE-MIX VIAL INH SCH (08:00)
--- NOTE | 2022-09-03 08:17 | Speech Therapy Progress Note ---
Therapy Progress Note ST received consultation for a cognitive linguistic evaluation. The clinician recently discharged the patient from skilled speech pathology services as the patient's behaviors were most consistent with acute confusion. Cognitive (specifically, memory and sequencing) stimulability exercises were attempted by the clinician with poor participation and accuracy. Due to the patient's current level of confusion and decreased accuracy through stimulability trials, partic ipation in skilled speech pathology was not warranted at that time. If speech pathology is able to aid in positive progression of physical and occupational goals, please re-consult ST with specific needs. ELIER IBARRA Sep 03, 2022 08:17
[2022-09-03] MEDS: SENNOSIDES 8.6 MG (SENOKOT) TAB PO SCH ×2 (09:18→21:11)
[2022-09-03] MEDS: SENNA W/DOCUSATE (SENOKOT S) TABLET PO SCH ×2 (09:18→21:11)
[2022-09-03] MEDS: AMOXICILLIN 500 MG (POLYMOX) CAP PO SCH ×3 (09:18→21:25)
[2022-09-03] MEDS: DOCUSATE SODIUM 100 MG (COLACE) CAP PO SCH ×2 (09:18→21:11)
[2022-09-03] MEDS: polyethylene glycoL POWDER 17 GM (MIRALAX) PACK PO SCH ×2 (09:18→21:11)
--- NOTE | 2022-09-03 09:54 | Physical Therapy Daily Note ---
PT Daily Note-Current Subjective Pt. in lift recline chair with several blankets and slumped to left with LEs pulled up in chair near knee to chest. Pt. resists therapies and requires much encouragement and repeated explanation. Pt. c/o she is so cold. Pt. eventually agreed toRx . Pain Location: No Pain Reported Section J - Health Conditions 1. Rarely or not at all 2. Occasionally 3. Frequently 4. Almost constantly 8. Unable to answer Pain Effect on Sleep: 1 Pain Interference with Therapy: 1 Pain Interference w/Day-to-Day: 1 Appearance BM on gown and LEs and brief, Mental Status Patient Orientation: Confused pt. states name but not place or situation, historical life events were pts topic today, sharing the loss of a and 4 yr old son, pt. wants her Bible with the photo of her in it who she reads to every day. Transfers SCALE: Activities may be completed with or without assistive devices. 8-Jitmcikkri-paaidyb completes the activity by him/herself with no assistance from a helper. 5-Set-up or Clean-up Assistance-helper sets up or cleans up; patient completes activity. [place] assists only prior to or following the activity. 4-Supervision or Touching Assistance-helper provides verbal cues and/or touching/steadying and/or contact guard assistance as patient completes activity. Assistance may be provided throughout the activity or intermittently. 3-Partial/Moderate Assistance-helper does LESS THAN HALF the effort. [place] lifts, holds or supports trunk or limbs, but provides less than half the effort. 2-Substantial/Maximal Assistance-helper does MORE THAN HALF the effort. [place] lifts or holds trunk or limbs and provides more than half the effort. 6-Phrqblpun-kzjlkb does ALL the effort. Patient does none of the effort to complete the activity. Or, the assistance of 2 or more helpers is required for the patient to complete the activity. If activity was not attempted, code reason: 7-Patient Refused. 9-Not Applicable-not attempted and the patient did not perform the activity before the current illness, exacerbation or injury. 10-Not Attempted due to Environmental Limitations-(lack of equipment, weather restraints, etc.). 88-Not Attempted due to Medical Conditions or Safety Concerns. Sit to Stand (QC): 3 Chair/Won-wq-Xqvlw Xfer(QC): 3 Toilet Transfer (QC): 3 pt. needs tactile trunk cues for physical guidance in safe manner to chair and yanely to toilet, pt. expresses fear of falling yanely in bthrm Gait Training Does the Patient Walk?: Yes Walk 50 ft with 2 Turns(QC): 4 Gait Persons Needed: 1 Gait Assistive Device: FWW pt. resists walking bc she is cold but was persuaded to walk to commons area for hot cup of coffee at the table . needs assist for walker advancement and for much physical cuing to walk in center of walker space and and for safe alignment. Pts. confusion leaves her in need of greater assist Exercises Seated Therapy Exercises: Ankle pumps, Sit to stand, Long arc quads, Hip flexion, Hip abd/add Seated Reps: 15 Treatments gait, TRFs, seated LE ex, toileting , AM care for handwashing as pt. toileted for BM and had BM on hands etc, incont of BM, gown, brief etc, in recliner after Rx with alarm and hamm insitu, no O2 on per nursing, O2 sats 97% during Rx on rm air Assessment Current Status: Fair Progress confusion limits functional mob and safety and fthe following of instruction PT Prison Goals Prison Goals PT Prison Goals Time Frame: Sep 16, 2022 Roll Left & Right (QC): 6 Sit to Lying (QC): 6 Lying-Sitting on Side/Bed(QC): 6 Sit to Stand (QC): 4 Chair/Gqr-ip-Plhvi Xfer(QC): 4 Toilet Transfer (QC): 4 Car Transfer (QC): 4 Does the Patient Walk: Yes Walk 10 feet (QC): 4 Walk 50ft with 2 Turns (QC): 4 Walk 150 ft (QC): 4 Walking 10ft on Uneven Surface: 4 1 Step (curb) (QC): 4 4 Steps (QC): 4 12 Steps (QC): 88 Picking up an Object (QC): 4 Wheel 50 feet with 2 turns (QC: 6 Wheel 150 feet: 6 PT Plan Treatment/Plan Treatment Plan: Continue Plan of Care Treatment Plan: Bed Mobility, Education, Functional Activity Pj, Functional Strength, Group Therapy, Gait, Safety, Therapeutic Exercise, Transfers Treatment Duration: Sep 16, 2022 Frequency: At least 5 of 7 days/Wk (IRF) Estimated Hrs Per Day: 1.5 hours per day Patient and/or Family Agrees t: Yes Safety Risks/Education Patient Education: Gait Training, Transfer Techniques, Correct Positioning, Saf ety Issues Teaching Recipient: Patient Teaching Methods: Demonstration, Discussion Response to Teaching: Verbalize Understanding, Return Demonstration, Reinforcement Needed Time Time In: 900 Time Out: 1000 DATE: Sep 03, 2022 Total Billed Treatment Time: 60 Total Billed Treatment 1,GT20m,EX15m,FA25m KAE SHAH PTA Sep 03, 2022 09:54
--- NOTE | 2022-09-03 10:48 | Occupational Ther Daily Note ---
OT Current Status-Daily Note Subjective Pt agreeable to OT Tx. ADL-Treatment Therapy Code Descriptions/Definitions Functional [place] Measure: 0=Not Assessed/NA 4=Minimal Assistance 1=Total Assistance 5=Supervision or Setup 2=Maximal Assistance 6=Modified [place] 3=Moderate Assistance 7=Complete IndependenceSCALE: Activities may be completed with or without assistive devices. 3-Setuzmidzg-dfwrgon completes the activity by him/herself with no assistance from a helper. 5-Set-up or Clean-up Assistance-helper sets up or cleans up; patient completes activity. [place] assists only prior to or following the activity. 4-Supervision or Touching Assistance-helper provides verbal cues and/or touching/steadying and/or contact guard assistance as patient completes activity. Assistance may be provided throughout the activity or intermittently. 3-Partial/Moderate Assistance-helper does LESS THAN HALF the effort. [place] lifts, holds or supports trunk or limbs, but provides less than half the effort. 2-Substantial/Maximal Assistance-helper does MORE THAN HALF the effort. [place] lifts or holds trunk or limbs and provides more than half the effort. 6-Srbacyfjq-ptvngr does ALL the effort. Patient does none of the effort to complete the activity. Or, the assistance of 2 or more helpers is required for the patient to complete the activity. If activity was not attempted, code reason: 7-Patient Refused. 9-Not Applicable-not attempted and the patient did not perform the activity before the current illness, exacerbation or injury. 10-Not Attempted due to Environmental Limitations-(lack of equipment, weather restraints, etc.). 88-Not Attempted due to Medical Conditions or Safety Concerns. Upper Body Dressing (QC): 4 Lower Body Dressing (QC): 4 Other Treatment Pt in recliner, agreeable to OT Tx. Pt donned UE/LE clothing, requiring VCs to attend to task. Pt able to complete with SBA, increased time needed due to being easily distracted. Pt then completed UE reaching task, removing graded clothespins from horizontal bar with RUE. Pt able to locate and remove yellow clothespins followed by red. Pt then unable to tell difference between green, blue, and black. Pt became distracted, telling stories of her past. Post tx, pt in recliner, call light in reach and all needs met. Chair alarm activated and telesitter present. Education OT Patient Education: Correct positioning, Energy conservation, Modified ADL techniques, Progress toward Goal/Update tx plan, Purpose of tx/functional activities, Rehab process Teaching Recipient: Patient Teaching Methods: Discussion Response to Teaching: Verbalize Understanding OT Short Term Goals Short Term Goals Time Frame: Sep 19, 2022 Shower/bathe self: 5 Upper body dressin Lower body dressin Putting on/taking off footwear: 5 OT Senior Care Goals Diamond Wheel Edger Goals Time Frame: Sep 26, 2022 Acute change in mental status: 1 Inattention: 1 Disorganized thinkin Altered level of consciousness: 0 Eating (QC): 6 Oral Hygiene (QC): 6 Toileting Hygiene (QC): 6 Shower/Bathe Self (QC): 6 Upper Body Dressing (QC): 6 Lower Body Dressing (QC): 6 On/Off Footwear (QC): 6 Additional Goals: 1-Demonstrate ADL Tasks, 2-Verbalize Understanding, 3- ImproveStrength/Pj 1=Demonstrate adherence to instructed precautions during ADL tasks. 2=Patient will verbalize/demonstrate understanding of assistive devices/modifications for ADL. 3=Patient will improve strength/tolerance for activity to enable patient to perform ADL's. OT Education/Plan Problem List/Assessment Assessment: Decreased Activ Tolerance, Decreased Safety Aware, Decreased UE Strength, Impaired Cognition, Impaired Funct Balance, Impaired I ADL's, Impaired Self-Care Skills Discharge Recommendations Plan/Recommendations: Continue POC Treatment Plan/Plan of Care Patient would benefit from OT for education, treatment and training to promote independence in ADL's, mobility, safety and/or upper extremity function for ADL's. Plan of Care: ADL Retraining, Functional Mobility, Group Exercise/Act as Ind, UE Funct Exercise/Act Treatment Duration: Sep 26, 2022 Frequency: At least 5 of 7 days/Wk (IRF) Estimated Hrs Per Day: 1.5 hours per day Agreement: Yes Rehab Potential: Fair Time Start Time: 10:00 Stop Time: 10:45 DATE: Sep 03, 2022 Total Time Billed (hr/min): 45 Billed Treatment Time 1, ADL 2 (30'), FA (15') PRICILLA JOLLY OT Sep 03, 2022 10:48
[2022-09-03] MEDS: ENOXAPARIN INJECTION 30 MG/0.3 ML SYR SC SCH (11:16)
--- NOTE | 2022-09-03 11:44 | Physical Therapy Daily Note ---
PT Daily Note-Current Subjective Pt. up in recliner, agree to short walk and going to toilet. Pt. requests coffee. "Im so cold". Pain Location: No Pain Reported Section J - Health Conditions 1. Rarely or not at all 2. Occasionally 3. Frequently 4. Almost constantly 8. Unable to answer Pain Effect on Sleep: 1 Pain Interference with Therapy: 1 Pain Interference w/Day-to-Day: 1 Mental Status Patient Orientation: Confused Transfers SCALE: Activities may be completed with or without assistive devices. 0-Ddskthtnqe-tpgxyzv completes the activity by him/herself with no assistance from a helper. 5-Set-up or Clean-up Assistance-helper sets up or cleans up; patient completes activity. [place] assists only prior to or following the activity. 4-Supervision or Touching Assistance-helper provides verbal cues and/or touching/steadying and/or contact guard assistance as patient completes activity. Assistance may be provided throughout the activity or intermittently. 3-Partial/Moderate Assistance-helper does LESS THAN HALF the effort. [place] lifts, holds or supports trunk or limbs, but provides less than half the effort. 2-Substantial/Maximal Assistance-helper does MORE THAN HALF the effort. [place] lifts or holds trunk or limbs and provides more than half the effort. 8-Ajyqsatro-ixlzey does ALL the effort. Patient does none of the effort to complete the activity. Or, the assistance of 2 or more helpers is required for the patient to complete the activity. If activity was not attempted, code reason: 7-Patient Refused. 9-Not Applicable-not attempted and the patient did not perform the activity before the current illness, exacerbation or injury. 10-Not Attempted due to Environmental Limitations-(lack of equipment, weather restraints, etc.). 88-Not Attempted due to Medical Conditions or Safety Concerns. pt. needs physically guided down onto toilet as she fears she will fall but is not centered over toilet before sitting. mod assist stand to sit. Gait Training Does the Patient Walk?: Yes Walk 50 ft with 2 Turns(QC): 4 Gait Assistive Device: FWW pt. flexed over FWW, needs much assist to stay in centered area of walker and to hold to hand take away man, pt. comes near abandoning device x 2. requires assist to advance and guide FWW. unequal step length, Treatments TRFs, gait to toilet and back, in toilet pt. again with soiled brief BM and urine and again attempts to clean herself but ends up with BM on her hands requiring good cleansing at sink after najera as well as her FWW hand take away man. mod to min assist gait to recliner with LEs elevated and alarm insitu after Rx with hamm at hand and futher instruction in its use Assessment Current Status: Fair Progress confusion limits funct mob PT Checkroom Chief Goals Checkroom Chief Goals PT Jail Goals Time Frame: Sep 16, 2022 Roll Left & Right (QC): 6 Sit to Lying (QC): 6 Lying-Sitting on Side/Bed(QC): 6 Sit to Stand (QC): 4 Chair/Umt-jo-Rcwyt Xfer(QC): 4 Toilet Transfer (QC): 4 Car Transfer (QC): 4 Does the Patient Walk: Yes Walk 10 feet (QC): 4 Walk 50ft with 2 Turns (QC): 4 Walk 150 ft (QC): 4 Walking 10ft on Uneven Surface: 4 1 Step (curb) (QC): 4 4 Steps (QC): 4 12 Steps (QC): 88 Picking up an Object (QC): 4 Wheel 50 feet with 2 turns (QC: 6 Wheel 150 feet: 6 PT Plan Treatment/Plan Treatment Plan: Continue Plan of Care Treatment Plan: Bed Mobility, Education, Functional Activity Pj, Functional Strength, Group Therapy, Gait, Safety, Therapeutic Exercise, Transfers Treatment Duration: Sep 16, 2022 Frequency: At least 5 of 7 days/Wk (IRF) Estimated Hrs Per Day: 1.5 hours per day Patient and/or Family Agrees t: Yes Safety Risks/Education Patient Education: Gait Training, Transfer Techniques, Correct Positioning, Disease Process, Safety Issues Teaching Recipient: Patient Teaching Methods: Discussion Response to Teaching: Unable to Return Demonstration, Unable to Comprehend, Reinforcement Needed Time Time In: 1125 Time Out: 1140 DATE: Sep 03, 2022 Total Billed Treatment Time: 15 Total Billed Treatment 1,FA15m KAE SHAH PTA Sep 03, 2022 11:43
--- NOTE | 2022-09-03 14:37 | Therapy Group Daily Note ---
Therapy Daily Group Note Patient Education Topic Home Safety Exercises LE Seated Exercise, UE Exercise Session Ratio (pt:therapist): 3:1 Goal of Session: Education on ARU Expectations, Home Safety Strategies, UE/LE Strengthing, Use of Adaptive Equipment Goal Met for this Session: No Pt Benefit of Group: Contributions to Others, F/U Use of Strategies @Home, Increased Functional Safety, Increased Functional Strength, Improved Cognition, Recognition of Peers, Socialization Other/Notes Pt ambulated using FWW to [facility] area for OT/PT group. Group consisted of introductions (name, place living, life hack/trick), socialization, education on tips/tricks to make IADLs/ADLs easier and B UE/LE seated exercises. Pt did not introduce self appropriately nor actively listen to peers. Pt could not acknowledge educational topic or give own strategies and ideas. Pt does not even attempt UE/LE seated exercises. Pt requires max encouragement to participate in Group and continues to ask to return to her room. After session, pt resting in recliner with call light/phone in reach. All needs met in room. Start Time: 13:00 Stop Time: 14:00 Total Billed Treatment Time: 60 Total Billed Treatment 1, NATHANAEL GARCIA CUSTOMS OFFICER Sep 03, 2022 14:37
[2022-09-03] MEDS: ACETAMINOPHEN 325 MG TABLET PO PRN (17:24)
[2022-09-03 19:17] VITALS: BP 95/55
--- NOTE | 2022-09-04 05:27 | PM&R Progress Note ---
Subjective HPI/CC On Admission Date Seen by Provider: Sep 04, 2022 Time Seen by Provider: 12:30 Subjective/Events-last exam 09/04/2022: Improved overall No falls Improved ambulation Gaining strength Eating is minimal 09/03/2022: Improved mentation Very frail Participation is good No falls No pain Switched IV abx to PO Review of Systems General: Fatigue, Malaise Objective Exam Vital Signs Vital Signs Date Time Temp Pulse Resp B/P (MAP) Pulse Ox O2 Delivery O2 Flow Rate FiO2 09/04/22 21:42 Nasal Cannula 2.00 09/04/22 20:05 37.0 81 18 103/57 (72) 91 Capillary Refill : General Appearance: No Apparent Distress, WD/WN, Chronically ill HEENT: PERRL/EOMI, Normal ENT Inspection, Pharynx Normal Neck: Full Range of Motion, Normal Inspection, Non Tender, Supple, Carotid Bruit Respiratory: Chest Non Tender, Lungs Clear, Normal Breath Sounds, No Accessory Muscle Use, No Respiratory Distress Cardiovascular: Regular Rate, Rhythm, No Edema, No Gallop, No JVD, No Murmur, Normal Peripheral Pulses Gastrointestinal: Normal Bowel Sounds, No Organomegaly, No Pulsatile Mass, Non Tender, Soft Back: Normal Inspection, No CVA Tenderness, No Vertebral Tenderness Extremity: Normal Capillary Refill, Normal Inspection, Normal Range of Motion, Non Tender, No Calf Tenderness, No Pedal Edema Neurologic/Psychiatric: Alert, Oriented x3, Abnormal Gait, Depressed Affect, Disoriented, Motor Weakness Skin: Normal Color, Warm/Dry Lymphatic: No Adenopathy Results/Procedures Lab Patient resulted labs reviewed. FIM Transfers Therapy Code Descriptions/Definitions Functional [place] Measure: 0=Not Assessed/NA 4=Minimal Assistance 1=Total Assistance 5=Supervision or Setup 2=Maximal Assistance 6=Modified [place] 3=Moderate Assistance 7=Complete IndependenceSCALE: Activities may be completed with or without assistive devices. 8-Qdeiwbfqpj-lljiwhg completes the activity by him/herself with no assistance from a helper. 5-Set-up or Clean-up Assistance-helper sets up or cleans up; patient completes activity. [place] assists only prior to or following the activity. 4-Supervision or Touching Assistance-helper provides verbal cues and/or touching/steadying and/or contact guard assistance as patient completes activity. Assistance may be provided throughout the activity or intermittently. 3-Partial/Moderate Assistance-helper does LESS THAN HALF the effort. [place] lifts, holds or supports trunk or limbs, but provides less than half the effort. 2-Substantial/Maximal Assistance-helper does MORE THAN HALF the effort. [place] lifts or holds trunk or limbs and provides more than half the effort. 8-Ryhsjmtoc-tzzamn does ALL the effort. Patient does none of the effort to complete the activity. Or, the assistance of 2 or more helpers is required for the patient to complete the activity. If activity was not attempted, code reason: 7-Patient Refused. 9-Not Applicable-not attempted and the patient did not perform the activity before the current illness, exacerbation or injury. 10-Not Attempted due to Environmental Limitations-(lack of equipment, weather restraints, etc.). 88-Not Attempted due to Medical Conditions or Safety Concerns. Roll Left to Right (QC): 4 Sit to Lying (QC): 4 Sit to Stand (QC): 3 Chair/Ebk-za-Aysgc Xfer(QC): 3 Car Transfer (QC): 3 Gait Training Does the Patient Walk?: Yes Walk 10 feet (QC): 3 Walk 50 ft with 2 Turns(QC): 4 Walk 150 ft (QC): 88 Walking 10ft/uneven surface-QC: 88 Gait Persons Needed: 1 Gait Assistive Device: FWW Wheelchair Training Distance: 100' Wheel 50 ft with 2 turns (QC): 3 Wheel 150 ft (QC): 88 Stair Training 1 Step (curb) (QC): 88 4 Steps (QC): 88 12 Steps (QC): 88 Balance Picking up an Object (QC): 4 (CGA using a event security officer) ADL-Treatment Eating (QC): 5 Oral Hygiene (QC): 4 (Supervison) Shower/Bathe Self (QC): 4 (Pt able to wash/dry all parts, but required VCS for sequencing and CGA in stand.) Upper Body Dressing (QC): 4 Lower Body Dressing (QC): 4 Toileting Hygiene (QC): 4 Assessment/Plan Assessment and Plan Assess & Plan/Chief Complaint Assessment: Acute metabolic encephalopathy UTI Advanced age Cachexia Allergies Recent COVID Fall risk Plan: PT OT Increase po nutrition Complete abx 09/03/2022: Improved mentation Frail status Change IV abx to PO 09/04/2022: Increase PO intake Fall risk (1) Encephalopathy acute (2) UTI (urinary tract infection) Status: Acute (3) Debility Status: Acute (4) COPD (chronic obstructive pulmonary disease) Status: Chronic (5) Emaciation Status: Acute (6) Generalized weakness Status: Acute (7) Advanced age (8) DNR (do not resuscitate) ELLIS JOSUE DO Sep 04, 2022 05:27
[2022-09-04 07:42] VITALS: BP 127/62
[2022-09-04] MEDS: RT-ALBUTEROL SULF 2.5 MG/3 ML PRE-MIX VIAL INH SCH ×2 (08:00→21:37)
[2022-09-04] MEDS: SENNA W/DOCUSATE (SENOKOT S) TABLET PO SCH ×2 (08:52→19:50)
[2022-09-04] MEDS: polyethylene glycoL POWDER 17 GM (MIRALAX) PACK PO SCH ×2 (08:52→19:50)
[2022-09-04] MEDS: DOCUSATE SODIUM 100 MG (COLACE) CAP PO SCH ×2 (08:52→19:50)
[2022-09-04] MEDS: SENNOSIDES 8.6 MG (SENOKOT) TAB PO SCH ×2 (09:00→19:50)
[2022-09-04] MEDS: AMOXICILLIN 500 MG (POLYMOX) CAP PO SCH ×3 (09:00→20:02)
--- NOTE | 2022-09-04 11:00 | Occupational Ther Daily Note ---
OT Current Status-Daily Note Subjective Pt up in recliner, agreeable to OT tx. Pt unable to recall where she was. Pt believed she was across the [address] from her apartment, but unable to verbalize location/name of building. Pt redirected to being in hospital, pt had difficulty recalling this information throughout tx. Mental Status/Objective Patient Orientation: Person, Confused Attachments: Oxygen ADL-Treatment Therapy Code Descriptions/Definitions Functional [place] Measure: 0=Not Assessed/NA 4=Minimal Assistance 1=Total Assistance 5=Supervision or Setup 2=Maximal Assistance 6=Modified [place] 3=Moderate Assistance 7=Complete IndependenceSCALE: Activities may be completed with or without assistive devices. 0-Odqnedvmhe-ibcmtcg completes the activity by him/herself with no assistance from a helper. 5-Set-up or Clean-up Assistance-helper sets up or cleans up; patient completes activity. [place] assists only prior to or following the activity. 4-Supervision or Touching Assistance-helper provides verbal cues and/or touching/steadying and/or contact guard assistance as patient completes activity. Assistance may be provided throughout the activity or intermittently. 3-Partial/Moderate Assistance-helper does LESS THAN HALF the effort. [place] lifts, holds or supports trunk or limbs, but provides less than half the effort. 2-Substantial/Maximal Assistance-helper does MORE THAN HALF the effort. [place] lifts or holds trunk or limbs and provides more than half the effort. 1-Pkazrupvy-skfoaw does ALL the effort. Patient does none of the effort to complete the activity. Or, the assistance of 2 or more helpers is required for the patient to complete the activity. If activity was not attempted, code reason: 7-Patient Refused. 9-Not Applicable-not attempted and the patient did not perform the activity be fore the current illness, exacerbation or injury. 10-Not Attempted due to Environmental Limitations-(lack of equipment, weather restraints, etc.). 88-Not Attempted due to Medical Conditions or Safety Concerns. Other Treatment Pt up in recliner, agreeable to OT Tx. Pt had slid down in recliner, with cuing, pt able to scoot up in chair with SBA. OT tx focused on UE reaching, problem solving, and attention to task. Pt completed 7 piece puzzle, 2 times. 1st time, pieces placed in correct orientation beside board. Pt able to complete with VCs for attending to task, but didn't need physical assistance with task. 2nd time, pieces placed beside board, rotated away from correct orientation. Pt required VCs for attention to task, and assistance with last 2 pieces. Pt completed UE reaching task, placing 25 pegs into foam pegboard. Pt required max VCS to attend to task due to being easily distracted requiring redirection. Post tx, pt in recliner, call light in reach and all needs met, chair alarm activated. throughout tx, pt easily distracted, wanting her son in law to take her to her apartment, and that she needs to teach her family how to ramu. Pt required frequent redirection to tasks. Education OT Patient Education: Correct positioning, Energy conservation, Modified ADL techniques, Progress toward Goal/Update tx plan, Purpose of tx/functional activities, Rehab process Teaching Recipient: Patient Teaching Methods: Discussion Response to Teaching: Verbalize Understanding OT Short Term Goals Short Term Goals Time Frame: Sep 19, 2022 Shower/bathe self: 5 Upper body dressin Lower body dressin Putting on/taking off footwear: 5 OT Lobster Catcher Goals Lobster Catcher Goals Time Frame: Sep 26, 2022 Acute change in mental status: 1 Inattention: 1 Disorganized thinkin Altered level of consciousness: 0 Eating (QC): 6 Oral Hygiene (QC): 6 Toileting Hygiene (QC): 6 Shower/Bathe Self (QC): 6 Upper Body Dressing (QC): 6 Lower Body Dressing (QC): 6 On/Off Footwear (QC): 6 Additional Goals: 1-Demonstrate ADL Tasks, 2-Verbalize Understanding, 3- ImproveStrength/Pj 1=Demonstrate adherence to instructed precautions during ADL tasks. 2=Patient will verbalize/demonstrate understanding of assistive devices/modifications for ADL. 3=Patient will improve strength/tolerance for activity to enable patient to perform ADL's. OT Education/Plan Problem List/Assessment Assessment: Decreased Activ Tolerance, Decreased Safety Aware, Decreased UE Strength, Impaired Cognition, Impaired Funct Balance, Impaired I ADL's, Impaired Self-Care Skills Discharge Recommendations Plan/Recommendations: Continue POC Treatment Plan/Plan of Care Patient would benefit from OT for education, treatment and training to promote independence in ADL's, mobility, safety and/or upper extremity function for ADL's. Plan of Care: ADL Retraining, Functional Mobility, Group Exercise/Act as Ind, UE Funct Exercise/Act Treatment Duration: Sep 26, 2022 Frequency: At least 5 of 7 days/Wk (IRF) Estimated Hrs Per Day: 1.5 hours per day Agreement: Yes Rehab Potential: Fair Time Start Time: 10:00 Stop Time: 11:00 DATE: Sep 04, 2022 Total Time Billed (hr/min): 60 Billed Treatment Time 1, FA 4 PRICILLA JOLLY OT Sep 04, 2022 11:00
--- NOTE | 2022-09-04 11:58 | Physical Therapy Daily Note ---
PT Daily Note-Current Subjective Pt. in recliner, denies pain several times during Rx. Pt. tells many stories from her families past and is difficult to interrupt and redirect back to tasks and mobility. Pt. quickly forgets the task at hand and needs redirected to positioning and exercise at hand Pain Location: No Pain Reported Section J - Health Conditions 1. Rarely or not at all 2. Occasionally 3. Frequently 4. Almost constantly 8. Unable to answer Pain Effect on Sleep: 1 Pain Interference with Therapy: 1 Pain Interference w/Day-to-Day: 1 Appearance pt. crosses legs habitually, prefers left over right. This position causing a curve in spine also held habitually Mental Status Patient Orientation: Confused Attachments: Oxygen (2L) pt. found with O2 cannula on top of her head , not in nose. sats checked at this point and found at 98%. Transfers SCALE: Activities may be completed with or without assistive devices. 1-Uksftiifpf-fbnmxvz completes the activity by him/herself with no assistance from a helper. 5-Set-up or Clean-up Assistance-helper sets up or cleans up; patient completes activity. [place] assists only prior to or following the activity. 4-Supervision or Touching Assistance-helper provides verbal cues and/or touching/steadying and/or contact guard assistance as patient completes activity. Assistance may be provided throughout the activity or intermittently. 3-Partial/Moderate Assistance-helper does LESS THAN HALF the effort. [place] lifts, holds or supports trunk or limbs, but provides less than half the effort. 2-Substantial/Maximal Assistance-helper does MORE THAN HALF the effort. [place] lifts or holds trunk or limbs and provides more than half the effort. 6-Tupogvxhk-tfnddh does ALL the effort. Patient does none of the effort to complete the activity. Or, the assistance of 2 or more helpers is required for the patient to complete the activity. If activity was not attempted, code reason: 7-Patient Refused. 9-Not Applicable-not attempted and the patient did not perform the activity b efore the current illness, exacerbation or injury. 10-Not Attempted due to Environmental Limitations-(lack of equipment, weather restraints, etc.). 88-Not Attempted due to Medical Conditions or Safety Concerns. Sit to Stand (QC): 6 Toilet Transfer (QC): 6 Car Transfer (QC): 6 Gait Training Does the Patient Walk?: Yes Walk 10 feet (QC): 4 Walk 50 ft with 2 Turns(QC): 4 Gait Persons Needed: 1 Gait Assistive Device: FWW no LOB, antalgic, needs assist for O2, c/o during gait that she is "walking funny " b/c her knees hurt, does not rate Exercises Seated Therapy Exercises: Ankle pumps, Sit to stand, Long arc quads, Hip flexion, Hip abd/add Seated Reps: 12 Treatments pt. with O2 off and sitting on her head upon entering room, sats 96%, cannula placed back in her nose for Rx, pt. repeatedly setting it back up on her head, Pt. is only cooperative to walk outside of room when lured by a cup of coffee in commons area. Pt. cooperated for short bouts of time to do seated LE ex. Pt. is confused about place and time and situation and needs reoriented, speaks of past for constant conversation. gait, TRFs, toileting, alarm and hamm insitu. unprotected food laying on pts tray table not on plate was thrown out, pt. was informed. Assessment Current Status: Good Progress needs much cajoling to cooperate, confused , needs redirection etc PT [facility] Goals [facility] Goals PT [facility] Goals Time Frame: Sep 16, 2022 Roll Left & Right (QC): 6 Sit to Lying (QC): 6 Lying-Sitting on Side/Bed(QC): 6 Sit to Stand (QC): 4 Chair/Unf-eq-Tniyl Xfer(QC): 4 Toilet Transfer (QC): 4 Car Transfer (QC): 4 Does the Patient Walk: Yes Walk 10 feet (QC): 4 Walk 50ft with 2 Turns (QC): 4 Walk 150 ft (QC): 4 Walking 10ft on Uneven Surface: 4 1 Step (curb) (QC): 4 4 Steps (QC): 4 12 Steps (QC): 88 Picking up an Object (QC): 4 Wheel 50 feet with 2 turns (QC: 6 Wheel 150 feet: 6 PT Plan Treatment/Plan Treatment Plan: Continue Plan of Care Treatment Plan: Bed Mobility, Education, Functional Activity Pj, Functional Strength, Group Therapy, Gait, Safety, Therapeutic Exercise, Transfers Treatment Duration: Sep 16, 2022 Frequency: At least 5 of 7 days/Wk (IRF) Estimated Hrs Per Day: 1.5 hours per day Patient and/or Family Agrees t: Yes Safety Risks/Education Patient Education: Gait Training, Transfer Techniques, Correct Positioning, Disease Process, Safety Issues Teaching Recipient: Patient Teaching Methods: Discussion Response to Teaching: Unable to Return Demonstration, Unable to Comprehend, Reinforcement Needed Time Time In: 1100 Time Out: 1200 DATE: Sep 04, 2022 Total Billed Treatment Time: 60 Total Billed Treatment 1,EX20m,GT15m,FA25m KAE SHAH SLIDE FORMING MACHINE TENDER Sep 04, 2022 11:58
[2022-09-04] MEDS: ENOXAPARIN INJECTION 30 MG/0.3 ML SYR SC SCH ×2 (12:35→13:24)
--- NOTE | 2022-09-04 13:53 | Occupational Ther Daily Note ---
OT Current Status-Daily Note Subjective Pt in recliner, agreeable to OT tx. Pt easily distracted, talking about various stories that ran into each other, but never fully finishing a story. pt required frequent redirection to task. ADL-Treatment Therapy Code Descriptions/Definitions Functional [place] Measure: 0=Not Assessed/NA 4=Minimal Assistance 1=Total Assistance 5=Supervision or Setup 2=Maximal Assistance 6=Modified [place] 3=Moderate Assistance 7=Complete IndependenceSCALE: Activities may be completed with or without assistive devices. 2-Spbrqpltbu-lsrzduu completes the activity by him/herself with no assistance from a helper. 5-Set-up or Clean-up Assistance-helper sets up or cleans up; patient completes activity. [place] assists only prior to or following the activity. 4-Supervision or Touching Assistance-helper provides verbal cues and/or touchi ng/steadying and/or contact guard assistance as patient completes activity. Assistance may be provided throughout the activity or intermittently. 3-Partial/Moderate Assistance-helper does LESS THAN HALF the effort. [place] lifts, holds or supports trunk or limbs, but provides less than half the effort. 2-Substantial/Maximal Assistance-helper does MORE THAN HALF the effort. [place] lifts or holds trunk or limbs and provides more than half the effort. 4-Fvxmjxkec-ukwcte does ALL the effort. Patient does none of the effort to complete the activity. Or, the assistance of 2 or more helpers is required for the patient to complete the activity. If activity was not attempted, code reason: 7-Patient Refused. 9-Not Applicable-not attempted and the patient did not perform the activity before the current illness, exacerbation or injury. 10-Not Attempted due to Environmental Limitations-(lack of equipment, weather restraints, etc.). 88-Not Attempted due to Medical Conditions or Safety Concerns. Other Treatment Pt in recliner, declined toileting and ADLs at this time. OT tx focused on increasing BUE Strength and activity tolerance, as well as attention to tasks. Pt placed/removed graded clothespins (1-5 lbs), BUEs. Pt able to remove clothesp ins with min VCs. Max VCs required to place back on due to being easily distracted. After multiple redirection attempts, pt still did not continue placing clothespins. OT began handing pt clothespins one at a time, then pt able to grasp from OT's hand and place back onto board. Post tx, pt in recliner, call light in reach and all needs met, chair alarm activated. OT Short Term Goals Short Term Goals Time Frame: Sep 19, 2022 Shower/bathe self: 5 Upper body dressin Lower body dressin Putting on/taking off footwear: 5 OT Newspaper Vendor Goals Newspaper Vendor Goals Time Frame: Sep 26, 2022 Acute change in mental status: 1 Inattention: 1 Disorganized thinkin Altered level of consciousness: 0 Eating (QC): 6 Oral Hygiene (QC): 6 Toileting Hygiene (QC): 6 Shower/Bathe Self (QC): 6 Upper Body Dressing (QC): 6 Lower Body Dressing (QC): 6 On/Off Footwear (QC): 6 Additional Goals: 1-Demonstrate ADL Tasks, 2-Verbalize Understanding, 3- ImproveStrength/Pj 1=Demonstrate adherence to instructed precautions during ADL tasks. 2=Patient will verbalize/demonstrate understanding of assistive dev ices/modifications for ADL. 3=Patient will improve strength/tolerance for activity to enable patient to perform ADL's. OT Education/Plan Problem List/Assessment Assessment: Decreased Activ Tolerance, Decreased Safety Aware, Decreased UE Strength, Impaired Cognition, Impaired Funct Balance, Impaired I ADL's, Impaired Self-Care Skills Discharge Recommendations Plan/Recommendations: Continue POC Treatment Plan/Plan of Care Patient would benefit from OT for education, treatment and training to promote independence in ADL's, mobility, safety and/or upper extremity function for ADL's. Plan of Care: ADL Retraining, Functional Mobility, Group Exercise/Act as Ind, UE Funct Exercise/Act Treatment Duration: Sep 26, 2022 Frequency: At least 5 of 7 days/Wk (IRF) Estimated Hrs Per Day: 1.5 hours per day Agreement: Yes Rehab Potential: Fair Time Start Time: 13:30 Stop Time: 14:00 DATE: Sep 04, 2022 Total Time Billed (hr/min): 30 Billed Treatment Time 1, FA 2 PRICILLA JOLLY OT Sep 04, 2022 13:53
--- NOTE | 2022-09-04 15:06 | Physical Therapy Daily Note ---
PT Daily Note-Current Subjective Pt. agrees to Rx with much encouragement. Pt. states her joints are hurting, this RETAIL SUPERVISOR reinforces that movement can help loosen and relieve her pain. Pt. then agrees to walk. Pain Numeric Pain Scale: 3 Location: Left (and right knee) Location Body Site: Knee Pain Description: Ache Section J - Health Conditions 1. Rarely or not at all 2. Occasionally 3. Frequently 4. Almost constantly 8. Unable to answer Pain Effect on Sleep: 1 Pain Interference with Therapy: 2 Pain Interference w/Day-to-Day: 1 Mental Status Patient Orientation: Confused Attachments: Oxygen (3L) pt. again has O2 cannula setting up on her head, sats again 97% on room air and cannula was again placed in her nose Transfers SCALE: Activities may be completed with or without assistive devices. 5-Edwkyxyjpe-nfmrwnz completes the activity by him/herself with no assistance from a helper. 5-Set-up or Clean-up Assistance-helper sets up or cleans up; patient completes activity. [place] assists only prior to or following the activity. 4-Supervision or Touching Assistance-helper provides verbal cues and/or touching/steadying and/or contact guard assistance as patient completes activity. Assistance may be provided throughout the activity or intermittently. 3-Partial/Moderate Assistance-helper does LESS THAN HALF the effort. [place] lift s, holds or supports trunk or limbs, but provides less than half the effort. 2-Substantial/Maximal Assistance-helper does MORE THAN HALF the effort. [place] lifts or holds trunk or limbs and provides more than half the effort. 0-Tzauyzbgq-jvider does ALL the effort. Patient does none of the effort to complete the activity. Or, the assistance of 2 or more helpers is required for the patient to complete the activity. If activity was not attempted, code reason: 7-Patient Refused. 9-Not Applicable-not attempted and the patient did not perform the activity before the current illness, exacerbation or injury. 10-Not Attempted due to Environmental Limitations-(lack of equipment, weather restraints, etc.). 88-Not Attempted due to Medical Conditions or Safety Concerns. Sit to Stand (QC): 4 Toilet Transfer (QC): 4 Gait Training Does the Patient Walk?: Yes Gait Assistive Device: FWW gait training 125 ft x 2 FWW antalgia continues, CGA and assist for O2, pt. stepping far outside the FWW at times and not in safe position for propelling the walker to her advantage. Treatments O2 sats on room air or on O2 always greater than 97%. Pt. needs constant assist for position in FWW and alignment. Pt. again toileted with incont BM and urine , pt. required max assist to change brief and cleanse. in chair with call hamm and alarm insitu Assessment Current Status: Fair Progress dependent for safety, PT Custodial Goals Custodial Goals PT Custodial Goals Time Frame: Sep 16, 2022 Roll Left & Right (QC): 6 Sit to Lying (QC): 6 Lying-Sitting on Side/Bed(QC): 6 Sit to Stand (QC): 4 Chair/Rpd-rz-Vnpic Xfer(QC): 4 Toilet Transfer (QC): 4 Car Transfer (QC): 4 Does the Patient Walk: Yes Walk 10 feet (QC): 4 Walk 50ft with 2 Turns (QC): 4 Walk 150 ft (QC): 4 Walking 10ft on Uneven Surface: 4 1 Step (curb) (QC): 4 4 Steps (QC): 4 12 Steps (QC): 88 Picking up an Object (QC): 4 Wheel 50 feet with 2 turns (QC: 6 Wheel 150 feet: 6 PT Plan Treatment/Plan Treatment Plan: Continue Plan of Care Treatment Plan: Bed Mobility, Education, Functional Activity Pj, Functional Strength, Group Therapy, Gait, Safety, Therapeutic Exercise, Transfers Treatment Duration: Sep 16, 2022 Frequency: At least 5 of 7 days/Wk (IRF) Estimated Hrs Per Day: 1.5 hours per day Patient and/or Family Agrees t: Yes Safety Risks/Education Patient Education: Gait Training, Transfer Techniques, Correct Positioning, Disease Process, Safety Issues Teaching Recipient: Patient Teaching Methods: Demonstration, Discussion Response to Teaching: Verbalize Understanding, Return Demonstration, Reinforcement Needed Time Time In: 1415 Time Out: 1445 DATE: Sep 04, 2022 Total Billed Treatment Time: 30 Total Billed Treatment 1,GT20m,FA10m KAE SHAH PTA Sep 04, 2022 15:06
[2022-09-04 20:05] VITALS: BP 103/57
--- NOTE | 2022-09-05 06:44 | PM&R Progress Note ---
Subjective HPI/CC On Admission Date Seen by Provider: Sep 05, 2022 Time Seen by Provider: 13:30 Subjective/Events-last exam 09/05/2022: Overall stable Frail status BP stable Completing PO abx 09/04/2022: Improved overall No falls Improved ambulation Gaining strength Eating is minimal 09/03/2022: Improved mentation Very frail Participation is good No falls No pain Switched IV abx to PO Review of Systems General: Fatigue, Malaise Objective Exam Vital Signs Vital Signs Date Time Temp Pulse Resp B/P (MAP) Pulse Ox O2 Delivery O2 Flow Rate FiO2 09/05/22 16:16 93 Room Air 09/05/22 10:10 91 18 09/05/22 09:38 2.00 09/05/22 08:00 36.8 117/71 (86) Capillary Refill : General Appearance: No Apparent Distress, WD/WN, Chronically ill HEENT: PERRL/EOMI, Normal ENT Inspection, Pharynx Normal Neck: Full Range of Motion, Normal Inspection, Non Tender, Supple, Carotid Bruit Respiratory: Chest Non Tender, Lungs Clear, Normal Breath Sounds, No Accessory Muscle Use, No Respiratory Distress Cardiovascular: Regular Rate, Rhythm, No Edema, No Gallop, No JVD, No Murmur, Normal Peripheral Pulses Gastrointestinal: Normal Bowel Sounds, No Organomegaly, No Pulsatile Mass, Non Tender, Soft Back: Normal Inspection, No CVA Tenderness, No Vertebral Tenderness Extremity: Normal Capillary Refill, Normal Inspection, Normal Range of Motion, Non Tender, No Calf Tenderness, No Pedal Edema Neurologic/Psychiatric: Alert, Oriented x3, Abnormal Gait, Depressed Affect, Disoriented, Motor Weakness Skin: Normal Color, Warm/Dry Lymphatic: No Adenopathy Results/Procedures Lab Patient resulted labs reviewed. FIM Transfers Therapy Code Descriptions/Definitions Functional [place] Measure: 0=Not Assessed/NA 4=Minimal Assistance 1=Total Assistance 5=Supervision or Setup 2=Maximal Assistance 6=Modified [place] 3=Moderate Assistance 7=Complete IndependenceSCALE: Activities may be completed with or without assistive devices. 5-Pjqorfdlgd-fjmepub completes the activity by him/herself with no assistance from a helper. 5-Set-up or Clean-up Assistance-helper sets up or cleans up; patient completes activity. [place] assists only prior to or following the activity. 4-Supervision or Touching Assistance-helper provides verbal cues and/or touching/steadying and/or contact guard assistance as patient completes activity. Assistance may be provided throughout the activity or intermittently. 3-Partial/Moderate Assistance-helper does LESS THAN HALF the effort. [place] lifts, holds or supports trunk or limbs, but provides less than half the effort. 2-Substantial/Maximal Assistance-helper does MORE THAN HALF the effort. [place] lifts or holds trunk or limbs and provides more than half the effort. 2-Sxgphacmz-smdpcy does ALL the effort. Patient does none of the effort to complete the activity. Or, the assistance of 2 or more helpers is required for the patient to complete the activity. If activity was not attempted, code reason: 7-Patient Refused. 9-Not Applicable-not attempted and the patient did not perform the activity before the current illness, exacerbation or injury. 10-Not Attempted due to Environmental Limitations-(lack of equipment, weather restraints, etc.). 88-Not Attempted due to Medical Conditions or Safety Concerns. Roll Left to Right (QC): 4 Sit to Lying (QC): 4 Sit to Stand (QC): 4 Chair/Ucs-nl-Xazyi Xfer(QC): 3 Car Transfer (QC): 6 Gait Training Does the Patient Walk?: Yes Walk 10 feet (QC): 4 Walk 50 ft with 2 Turns(QC): 4 Walk 150 ft (QC): 88 Walking 10ft/uneven surface-QC: 88 Gait Persons Needed: 1 Gait Assistive Device: FWW Wheelchair Training Distance: 100' Wheel 50 ft with 2 turns (QC): 3 Wheel 150 ft (QC): 88 Stair Training 1 Step (curb) (QC): 88 4 Steps (QC): 88 12 Steps (QC): 88 Balance Picking up an Object (QC): 4 (CGA using a mathematics professor) ADL-Treatment Eating (QC): 5 Oral Hygiene (QC): 4 (Supervison) Shower/Bathe Self (QC): 4 (Pt able to wash/dry all parts, but required VCS for sequencing and CGA in stand.) Upper Body Dressing (QC): 4 Lower Body Dressing (QC): 4 Toileting Hygiene (QC): 4 Assessment/Plan Assessment and Plan Assess & Plan/Chief Complaint Assessment: Acute metabolic encephalopathy UTI Advanced age Cachexia Allergies Recent COVID Fall risk Plan: PT OT Increase po nutrition Complete abx 09/03/2022: Improved mentation Frail status Change IV abx to PO 09/04/2022: Increase PO intake Fall risk 09/05/2022: Monitor for falls (1) Encephalopathy acute (2) UTI (urinary tract infection) Status: Acute (3) Debility Status: Acute (4) COPD (chronic obstructive pulmonary disease) Status: Chronic (5) Emaciation Status: Acute (6) Generalized weakness Status: Acute (7) Advanced age (8) DNR (do not resuscitate) ELLIS JOSUE DO Sep 05, 2022 06:44
--- NOTE | 2022-09-05 07:42 | Physical Therapy Daily Note ---
PT Daily Note-Current Subjective Pt.in bed but awake upon entering room. Pt. agrees to up for toileting and AM care then brkfst. Pt. is motivated by hot coffee. No c/o pain. Pt. again has much difficulty staying on task and desires to tell stories from old and needs repeated and frequent cues to get back on task. Needs cajoled and convinced to participate in Rx. Pain Location: No Pain Reported Section J - Health Conditions 1. Rarely or not at all 2. Occasionally 3. Frequently 4. Almost constantly 8. Unable to answer Pain Effect on Sleep: 1 Pain Interference with Therapy: 1 Pain Interference w/Day-to-Day: 1 Appearance incont BM and urine in brief. Mental Status Patient Orientation: Confused Attachments: Oxygen (3L) Transfers SCALE: Activities may be completed with or without assistive devices. 3-Muhjlbawqr-bovicgn completes the activity by him/herself with no assistance from a helper. 5-Set-up or Clean-up Assistance-helper sets up or cleans up; patient completes activity. [place] assists only prior to or following the activity. 4-Supervision or Touching Assistance-helper provides verbal cues and/or touching/steadying and/or contact guard assistance as patient completes activity. Assistance may be provided throughout the activity or intermittently. 3-Partial/Moderate Assistance-helper does LESS THAN HALF the effort. [place] lifts, holds or supports trunk or limbs, but provides less than half the effort. 2-Substantial/Maximal Assistance-helper does MORE THAN HALF the effort. [place] lifts or holds trunk or limbs and provides more than half the effort. 0-Sxppbqrya-wbhwjs does ALL the effort. Patient does none of the effort to complete the activity. Or, the assistance of 2 or more helpers is required for the patient to complete the activity. If activity was not attempted, code reason: 7-Patient Refused. 9-Not Applicable-not attempted and the patient did not perform the activity before the current illness, exacerbation or injury. 10-Not Attempted due to Environmental Limitations-(lack of equipment, weather restraints, etc.). 88-Not Attempted due to Medical Conditions or Safety Concerns. Roll Left & Right (QC): 6 Sit to Lying (QC): 6 Lying to Sitting/Side of Bed(Q: 6 Sit to Stand (QC): 6 (from higher seat surface, low surface 4) Chair/Rom-vv-Fieza Xfer(QC): 4 (needs assist to move inside walker and turn AD to approach chair or bed safely) Toilet Transfer (QC): 4 (low seat surface requires min to mod asst) pt. needs signal timer assist for staying in FWW , turning , approaching etc for safe use of FWW , Gait Training Does the Patient Walk?: Yes Walk 50 ft with 2 Turns(QC): 4 Gait Assistive Device: FWW requires signal timer tactile cues and instruction to stay in safe efficient place inside walker for gait and turns. pt. very flexed at trunk, antalgic gait pattern. pt. stops at times and leans heavily on FWW stating she is just tired, some dyspnea noted but O2 sats consistently >94% Exercises Supine Ex: Ankle pumps, Rolling, Heel Slides, Hip abd/add Supine Reps: 10 Seated Therapy Exercises: Ankle pumps, Sit to stand (8), Long arc quads, Hip flexion, Hip abd/add Seated Reps: 12 pt. needs much encouragement to uncross her legs and begin exercises, this FOREST FIRE FIGHTERS DISPATCHER in front of demonstrating exercises, pt. more interested in coffee and conversation, needs constantly redirected. Treatments TRFs in out bed, toilet, chair, gait 65 ft5 x 5 FWW min asst for alignment and managing FWW. O2 monitored at 96% rm air, this FOREST FIRE FIGHTERS DISPATCHER consulted nursing with OK to trial gait without O2 as pt takes it off repeatedly and has >94% sat readings Assessment Current Status: Fair Progress pt. cognitively unchanged, still confused, pleasant, perseverates on her who is and her family life. Pt. opens her Bible every day multiple times where there is a photo of her , uses a magnifying glass to look at his face in great detail then reads the Bible to him. , Pt. needs full supervision and tactile cuing for all gait with FWW , TRFs and toileting requires mod to max assist for sanitary reasons, PT Fpc Goals Grade School Teacher Goals PT Fpc Goals Time Frame: Sep 16, 2022 Roll Left & Right (QC): 6 Sit to Lying (QC): 6 Lying-Sitting on Side/Bed(QC): 6 Sit to Stand (QC): 4 Chair/Jny-dv-Jgwzq Xfer(QC): 4 Toilet Transfer (QC): 4 Car Transfer (QC): 4 Does the Patient Walk: Yes Walk 10 feet (QC): 4 Walk 50ft with 2 Turns (QC): 4 Walk 150 ft (QC): 4 Walking 10ft on Uneven Surface: 4 1 Step (curb) (QC): 4 4 Steps (QC): 4 12 Steps (QC): 88 Picking up an Object (QC): 4 Wheel 50 feet with 2 turns (QC: 6 Wheel 150 feet: 6 PT Plan Treatment/Plan Treatment Plan: Continue Plan of Care Treatment Plan: Bed Mobility, Education, Functional Activity Pj, Functional Strength, Group Therapy, Gait, Safety, Therapeutic Exercise, Transfers Treatment Duration: Sep 16, 2022 Frequency: At least 5 of 7 days/Wk (IRF) Estimated Hrs Per Day: 1.5 hours per day Patient and/or Family Agrees t: Yes Safety Risks/Education Patient Education: Gait Training, Transfer Techniques, Correct Positioning, Safety Issues Teaching Recipient: Patient Teaching Methods: Demonstration, Discussion Response to Teaching: Unable to Return Demonstration, Unable to Comprehend, Reinforcement Needed Time Time In: 715 Time Out: 900 DATE: Sep 05, 2022 Total Billed Treatment Time: 105 Total Billed Treatment 1,GT40m,FA45m,EX20m KAE SHAH FOREST FIRE FIGHTERS DISPATCHER Sep 05, 2022 07:42
[2022-09-05 08:00] VITALS: BP 117/71
[2022-09-05] MEDS: SENNA W/DOCUSATE (SENOKOT S) TABLET PO SCH ×2 (09:01→21:16)
[2022-09-05] MEDS: SENNOSIDES 8.6 MG (SENOKOT) TAB PO SCH ×2 (09:01→21:16)
[2022-09-05] MEDS: polyethylene glycoL POWDER 17 GM (MIRALAX) PACK PO SCH ×2 (09:01→21:15)
[2022-09-05] MEDS: AMOXICILLIN 500 MG (POLYMOX) CAP PO SCH ×3 (09:02→21:15)
[2022-09-05] MEDS: DOCUSATE SODIUM 100 MG (COLACE) CAP PO SCH ×2 (09:02→21:15)
[2022-09-05] MEDS: RT-ALBUTEROL SULF 2.5 MG/3 ML PRE-MIX VIAL INH SCH ×2 (09:58→21:53)
--- NOTE | 2022-09-05 10:19 | Occupational Ther Daily Note ---
OT Current Status-Daily Note Subjective Pt up in recliner, agreeable to OT Tx, moderate encouragement required. Mental Status/Objective Patient Orientation: Person, Confused ADL-Treatment Therapy Code Descriptions/Definitions Functional [place] Measure: 0=Not Assessed/NA 4=Minimal Assistance 1=Total Assistance 5=Supervision or Setup 2=Maximal Assistance 6=Modified [place] 3=Moderate Assistance 7=Complete IndependenceSCALE: Activities may be completed with or without assistive devices. 9-Tknimmzesr-rfdvjvs completes the activity by him/herself with no assistance from a helper. 5-Set-up or Clean-up Assistance-helper sets up or cleans up; patient completes activity. [place] assists only prior to or following the activity. 4-Supervision or Touching Assistance-helper provides verbal cues and/or touching/steadying and/or contact guard assistance as patient completes activity. Assistance may be provided throughout the activity or intermittently. 3-Partial/Moderate Assistance-helper does LESS THAN HALF the effort. [place] lifts, holds or supports trunk or limbs, but provides less than half the effort. 2-Substantial/Maximal Assistance-helper does MORE THAN HALF the effort. [place] lifts or holds trunk or limbs and provides more than half the effort. 5-Yusqaprfs-rychjh does ALL the effort. Patient does none of the effort to c omplete the activity. Or, the assistance of 2 or more helpers is required for the patient to complete the activity. If activity was not attempted, code reason: 7-Patient Refused. 9-Not Applicable-not attempted and the patient did not perform the activity before the current illness, exacerbation or injury. 10-Not Attempted due to Environmental Limitations-(lack of equipment, weather restraints, etc.). 88-Not Attempted due to Medical Conditions or Safety Concerns. Eating (QC): 6 (IND with snacks and coffee) Shower/Bathe Self (QC): 4 (SBA, pt able to wash all parts. Max VCs) Upper Body Dressing (QC): 4 (SBA, max VCs) Lower Body Dressing (QC): 4 (SBA, max VCs) On/Off Footwear: 4 (SBA) Toileting Hygiene (QC): 4 (Max VCs, pt able to perform pericare and wash buttocks, manage pants up/down.) max VCs for sequencing and processing. Step by step directions required, pt had difficulty following 1 step directions. Other Treatment Pt in recliner, agreeable to sponge bath and dressing with encouragement. Pt required max VCs throughout tx in order to recall simple 1 step directions, and to problem solve how to remove clothes (pt was sitting on her night gown and unable to problem solve how to take off). Pt able to complete dressing and sponge bath with max VCs, but no physical assistance required. Pt easily distracted, telling stories, pt required redirection to task. Even with redirection to task and repeat instructions, pt appeared to only follow 1 step instructions ~30-50% of the time, requiring multiple cues. Post tx, pt in recliner, call light in reach and all needs met, chair alarm activated. Education OT Patient Education: Correct positioning, Energy conservation, Modified ADL techniques, Progress toward Goal/Update tx plan, Purpose of tx/functional activities, Rehab process Teaching Recipient: Patient Teaching Methods: Discussion Response to Teaching: Verbalize Understanding OT Short Term Goals Short Term Goals Time Frame: Sep 19, 2022 Shower/bathe self: 5 Upper body dressin Lower body dressin Putting on/taking off footwear: 5 OT Commercial Producer Goals Group Home Goals Time Frame: Sep 26, 2022 Acute change in mental status: 1 Inattention: 1 Disorganized thinkin Altered level of consciousness: 0 Eating (QC): 6 Oral Hygiene (QC): 6 Toileting Hygiene (QC): 6 Shower/Bathe Self (QC): 6 Upper Body Dressing (QC): 6 Lower Body Dressing (QC): 6 On/Off Footwear (QC): 6 Additional Goals: 1-Demonstrate ADL Tasks, 2-Verbalize Understanding, 3- ImproveStrength/Pj 1=Demonstrate adherence to instructed precautions during ADL tasks. 2=Patient will verbalize/demonstrate understanding of assistive devices/modifications for ADL. 3=Patient will improve strength/tolerance for activity to enable patient to perform ADL's. OT Education/Plan Problem List/Assessment Assessment: Decreased Activ Tolerance, Decreased Safety Aware, Decreased UE Strength, Impaired Cognition, Impaired Funct Balance, Impaired I ADL's, Impaired Self-Care Skills Discharge Recommendations Plan/Recommendations: Continue POC Treatment Plan/Plan of Care Patient would benefit from OT for education, treatment and training to promote independence in ADL's, mobility, safety and/or upper extremity function for ADL's. Plan of Care: ADL Retraining, Functional Mobility, Group Exercise/Act as Ind, UE Funct Exercise/Act Treatment Duration: Sep 26, 2022 Frequency: At least 5 of 7 days/Wk (IRF) Estimated Hrs Per Day: 1.5 hours per day Agreement: Yes Rehab Potential: Fair Time Start Time: 09:45 Stop Time: 10:30 DATE: Sep 05, 2022 Total Time Billed (hr/min): 45 Billed Treatment Time 1, ADL 3 PRICILLA JOLLY OT Sep 05, 2022 10:19
[2022-09-05] MEDS: ENOXAPARIN INJECTION 30 MG/0.3 ML SYR SC SCH (11:40)
--- NOTE | 2022-09-05 13:52 | ST Cognitive Linguistic Eval ---
Speech Evaluation-General Medical Diagnosis Metabolic Encephalopathy Onset Date: Aug 29, 2022 Therapy Diagnosis Therapy Diagnosis: Impaired Cognition Precautions Precautions: Fall Precautions/Isolations: Fall Prevention, Standard Precautions Referral Referring Physician: Dr. Antonio Reason for Referral: Evaluation/Treatment Medical History Pertinent Medical History: COPD Reviewed History: Yes Social History Current Living Status: Alone Speech PLF-Current Status Prior Level of Function The patient remains unable to provide prior level of function information due to confusion. The patient's cousin, Kelley, is present for the evaluation who provides conflicting prior level of function information throughout her report. Initially, Kelley stated, "She's still the same ornery Francine." With continued probing thorughout the evaluation, Kelley stated, "She's so much better than two days ago." The clinician requested specific information, however, the Kelley continued to refer to the patient's slow pace throughout mobility tasks. Towards the close of the assessment, Kelley made the statement, "You're getting so much closer, much better, but not back." The clinician suspects the family member's statement may be in relationship to continued cognitive decline. Subjective The patient was seated upright in her recliner, awake and alert, upon entrance to her room by the clinician. The patient greeted the clinician appropriately and was agreeable to participation in the cognitive linguistic assessment. As the patient continues to struggle with occupational and physical therapy tasks due to difficulties with sequencing, attention, and overall cognition, speech pathology will evaluate the patient's current cognitive function to assess for the appropriateness of skilled speech pathology intervention. Language Eval: Auditory Comprehends Simple Yes/No Ques: Functional Ident/Pics in Multiple Recinos: Functional Follows 1-Step Commands: Functional (The patient is able to follow one-step commands, however, frequent repetitions of the commands are required and the patient's non-distracted attention is necessary.) Follows General Conversations: Moderate (The patient frequently requires redirection to task and topic. The high level of redirection necessary leads to limited accomplishment of evaluation questions.) Language Eval: Verbal Language Completes Spontaneous Greeting: Functional Produces Auto, Serial Info: Functional Requests Basic Needs: Functional States Basic Personal Info: Functional Cognitive Patient Orientation The patient is oriented to year, city, and state. The patient requires verbal r edirection to the simple orientation questions, as she begins to discuss how she is only able to have a birthday green party once every four years for her son. Language of confusion remains prevalent. Objective Cognitive Domain Attention: Severe Memory: Moderate (The patient stated, "My memory has been going down." The patient's cousin confirms the patient's statements but feels the memory decline may have more quickly progressed following "COVID and this infection.") Problem Solving: Severe Executive Functions: Severe Objective Formal/Standardized Tests [facility] Mental Status Exam (SLUMS) was attempted, however, wa s unable to be completed in 30 minutes (the SLUMS can be completed in less than ten minutes) due to consistent verbal redirection required for task completion. Oral Motor/Speech Production The patient does not display dysarthria or apraxia of speech. The patient remains 100% intelligible in known and unknown contexts. Impression The patient continues to display behaviors most consistent with confusion. The patient struggles to follow simple, one-step directions due to the necessity to provide consistent re-direction to task or topic. Following a discussion with the patient's cousin, Kelley, the clinician suspects the patient may be performing slightly below cognitive baseline (however, it is unsure as the patient's cousin provided multiple conflicting examples). As the patient is displayed reduced ability to perform occupational and physical therapy tasks, skilled speech pathology is warranted to aid in reinforcement of instructions through consistent repetition. Cognitive improvement remains guarded to this clinician. Speech Short Term Goals Short Term Goals Short Term Goals 1. The patient will provide appropriate solutions to in-home safety scenarios with 80% accuracy, independently. Time Frame-STG: Five Days. Speech Flow Manager Goals Group Home Goals 1. The patient will display improved cognitive linguistic communication for safe discharge home to the least restrictive environment. Time Frame: One Week. Speech-Plan Treatment Plan Speech Therapy Treatment Plan: Continue Plan of Care Treatment Duration: Sep 03, 2022 Frequency: Modified Program (IRF) Estimated Hrs Per Day: Other Rehab Potential: Poor Pt/Family Agrees to Plan: Yes Safety Risks/Education Teaching Recipient: Patient, Family (CousinKelley) Teaching Methods: Discussion Response to Teaching: Reinforcement Needed Education Topics Provided: Results, Plan of Care Time Speech Therapy Time In: 11:45 Speech Therapy Time Out: 12:15 DATE: Sep 05, 2022 Total Billed Time: 30 Billed Treatment Time 1, NAYAN COOPER [facility] Sep 05, 2022 13:52
[2022-09-05 18:20] VITALS: BP 117/71
[2022-09-05 20:01] VITALS: BP 103/68
--- NOTE | 2022-09-06 05:43 | PM&R Progress Note ---
Subjective HPI/CC On Admission Date Seen by Provider: Sep 06, 2022 Time Seen by Provider: 12:00 Subjective/Events-last exam 09/06/2022: Patient doing well Confusion still present Spoke to cousin at bedside No falls but increased risk 09/05/2022: Overall stable Frail status BP stable Completing PO abx 09/04/2022: Improved overall No falls Improved ambulation Gaining strength Eating is minimal 09/03/2022: Improved mentation Very frail Participation is good No falls No pain Switched IV abx to PO Review of Systems General: Fatigue, Malaise Objective Exam Vital Signs Vital Signs Date Time Temp Pulse Resp B/P (MAP) Pulse Ox O2 Delivery O2 Flow Rate FiO2 09/06/22 09:34 98 Room Air 09/06/22 07:30 36.6 65 16 107/62 (77) 09/05/22 21:53 2.00 Capillary Refill : General Appearance: No Apparent Distress, WD/WN, Chronically ill HEENT: PERRL/EOMI, Normal ENT Inspection, Pharynx Normal Neck: Full Range of Motion, Normal Inspection, Non Tender, Supple, Carotid Bruit Respiratory: Chest Non Tender, Lungs Clear, Normal Breath Sounds, No Accessory Muscle Use, No Respiratory Distress Cardiovascular: Regular Rate, Rhythm, No Edema, No Gallop, No JVD, No Murmur, Normal Peripheral Pulses Gastrointestinal: Normal Bowel Sounds, No Organomegaly, No Pulsatile Mass, Non Tender, Soft Back: Normal Inspection, No CVA Tenderness, No Vertebral Tenderness Extremity: Normal Capillary Refill, Normal Inspection, Normal Range of Motion, Non Tender, No Calf Tenderness, No Pedal Edema Neurologic/Psychiatric: Alert, Oriented x3, Abnormal Gait, Depressed Affect, Disoriented, Motor Weakness Skin: Normal Color, Warm/Dry Lymphatic: No Adenopathy Results/Procedures Lab Patient resulted labs reviewed. FIM Transfers Therapy Code Descriptions/Definitions Functional [place] Measure: 0=Not Assessed/NA 4=Minimal Assistance 1=Total Assistance 5=Supervision or Setup 2=Maximal Assistance 6=Modified [place] 3=Moderate Assistance 7=Complete IndependenceSCALE: Activities may be completed with or without assistive devices. 8-Nsysxxqyvn-cvzsbfp completes the activity by him/herself with no assistance from a helper. 5-Set-up or Clean-up Assistance-helper sets up or cleans up; patient completes activity. [place] assists only prior to or following the activity. 4-Supervision or Touching Assistance-helper provides verbal cues and/or touching/steadying and/or contact guard assistance as patient completes activity. Assistance may be provided throughout the activity or intermittently. 3-Partial/Moderate Assistance-helper does LESS THAN HALF the effort. [place] lifts, holds or supports trunk or limbs, but provides less than half the effort. 2-Substantial/Maximal Assistance-helper does MORE THAN HALF the effort. [place] l ifts or holds trunk or limbs and provides more than half the effort. 3-Jzvhnzyjh-shukju does ALL the effort. Patient does none of the effort to complete the activity. Or, the assistance of 2 or more helpers is required for the patient to complete the activity. If activity was not attempted, code reason: 7-Patient Refused. 9-Not Applicable-not attempted and the patient did not perform the activity before the current illness, exacerbation or injury. 10-Not Attempted due to Environmental Limitations-(lack of equipment, weather restraints, etc.). 88-Not Attempted due to Medical Conditions or Safety Concerns. Roll Left to Right (QC): 6 Sit to Lying (QC): 6 Sit to Stand (QC): 6 (from higher seat surface, low surface 4) Chair/Faj-ls-Vikbp Xfer(QC): 4 (needs assist to move inside walker and turn AD to approach chair or bed safely) Car Transfer (QC): 6 Gait Training Does the Patient Walk?: Yes Walk 10 feet (QC): 4 Walk 50 ft with 2 Turns(QC): 4 Walk 150 ft (QC): 88 Walking 10ft/uneven surface-QC: 88 Gait Persons Needed: 1 Gait Assistive Device: FWW Wheelchair Training Distance: 100' Wheel 50 ft with 2 turns (QC): 3 Wheel 150 ft (QC): 88 Stair Training 1 Step (curb) (QC): 88 4 Steps (QC): 88 12 Steps (QC): 88 Balance Picking up an Object (QC): 4 (CGA using a arboreal scientist) ADL-Treatment Eating (QC): 6 (IND with snacks and coffee) Oral Hygiene (QC): 4 (Supervison) Shower/Bathe Self (QC): 4 (SBA, pt able to wash all parts. Max VCs) Upper Body Dressing (QC): 4 (SBA, max VCs) Lower Body Dressing (QC): 4 (SBA, max VCs) On/Off Footwear (QC): 4 (SBA) Toileting Hygiene (QC): 4 (Max VCs, pt able to perform pericare and wash buttocks, manage pants up/down.) Assessment/Plan Assessment and Plan Assess & Plan/Chief Complaint Assessment: Acute metabolic encephalopathy UTI Advanced age Cachexia Allergies Recent COVID Fall risk Plan: PT OT Increase po nutrition Complete abx 09/03/2022: Improved mentation Frail status Change IV abx to PO 09/04/2022: Increase PO intake Fall risk 09/05/2022: Monitor for falls 09/06/2022: Monitor confusion COVID related decline noted (1) Encephalopathy acute (2) UTI (urinary tract infection) Status: Acute (3) Debility Status: Acute (4) COPD (chronic obstructive pulmonary disease) Status: Chronic (5) Emaciation Status: Acute (6) Generalized weakness Status: Acute (7) Advanced age (8) DNR (do not resuscitate) ELLIS JOSUE DO Sep 06, 2022 05:43
[2022-09-06 07:30] VITALS: BP 107/62
[2022-09-06] MEDS: SENNOSIDES 8.6 MG (SENOKOT) TAB PO SCH ×2 (09:01→20:56)
[2022-09-06] MEDS: DOCUSATE SODIUM 100 MG (COLACE) CAP PO SCH ×2 (09:01→20:55)
[2022-09-06] MEDS: SENNA W/DOCUSATE (SENOKOT S) TABLET PO SCH ×2 (09:01→20:56)
[2022-09-06] MEDS: polyethylene glycoL POWDER 17 GM (MIRALAX) PACK PO SCH ×2 (09:01→20:55)
[2022-09-06] MEDS: AMOXICILLIN 500 MG (POLYMOX) CAP PO SCH ×3 (09:05→20:55)
[2022-09-06] MEDS: RT-ALBUTEROL SULF 2.5 MG/3 ML PRE-MIX VIAL INH SCH ×2 (09:31→20:58)
[2022-09-06] MEDS: ENOXAPARIN INJECTION 30 MG/0.3 ML SYR SC SCH (11:28)
--- NOTE | 2022-09-06 14:39 | Physical Therapy Daily Note ---
PT Daily Note-Current Subjective Pt in recliner upon arrival and agrees to PT declines amb but says she will do seated exs and family present. Pain Section J - Health Conditions 1. Rarely or not at all 2. Occasionally 3. Frequently 4. Almost constantly 8. Unable to answer Pain Effect on Sleep: 1 Pain Interference with Therapy: 1 Pain Interference w/Day-to-Day: 1 Mental Status Patient Orientation: Person, Place Transfers SCALE: Activities may be completed with or without assistive devices. 2-Jbaunderbi-bxficfn completes the activity by him/herself with no assistance from a helper. 5-Set-up or Clean-up Assistance-helper sets up or cleans up; patient completes activity. [place] assists only prior to or following the activity. 4-Supervision or Touching Assistance-helper provides verbal cues and/or touching/steadying and/or contact guard assistance as patient completes activity. Assistance may be provided throughout the activity or intermittently. 3-Partial/Moderate Assistance-helper does LESS THAN HALF the effort. [place] lifts, holds or supports trunk or limbs, but provides less than half the effort. 2-Substantial/Maximal Assistance-helper does MORE THAN HALF the effort. [place] lifts or holds trunk or limbs and provides more than half the effort. 4-Uveeezema-uuppft does ALL the effort. Patient does none of the effort to complete the activity. Or, the assistance of 2 or more helpers is required for the patient to complete the activity. If activity was not attempted, code reason: 7-Patient Refused. 9-Not Applicable-not attempted and the patient did not perform the activity before the current illness, exacerbation or injury. 10-Not Attempted due to Environmental Limitations-(lack of equipment, weather restraints, etc.). 88-Not Attempted due to Medical Conditions or Safety Concerns. Exercises Seated Therapy Exercises: Ankle pumps, Long arc quads, Hip flexion, Hamstring Curls, Hip abd/add Seated Reps: 20 Treatments Call light nearby and all needs met as PT departs Assessment Current Status: Good Progress Pt required verbal and tactile cues in order to performs exs correctly. Pt requires cues in order to stay on task. PT Correction Goals Correction Goals PT Floor Coverer Apprentice Goals Time Frame: Sep 16, 2022 Roll Left & Right (QC): 6 Sit to Lying (QC): 6 Lying-Sitting on Side/Bed(QC): 6 Sit to Stand (QC): 4 Chair/Qgi-yi-Mkqhf Xfer(QC): 4 Toilet Transfer (QC): 4 Car Transfer (QC): 4 Does the Patient Walk: Yes Walk 10 feet (QC): 4 Walk 50ft with 2 Turns (QC): 4 Walk 150 ft (QC): 4 Walking 10ft on Uneven Surface: 4 1 Step (curb) (QC): 4 4 Steps (QC): 4 12 Steps (QC): 88 Picking up an Object (QC): 4 Wheel 50 feet with 2 turns (QC: 6 Wheel 150 feet: 6 PT Plan Problem List Problem List: Activity Tolerance, Functional Strength Treatment/Plan Treatment Plan: Continue Plan of Care Treatment Plan: Bed Mobility, Education, Functional Activity Pj, Functional Strength, Group Therapy, Gait, Safety, Therapeutic Exercise, Transfers Treatment Duration: Sep 16, 2022 Frequency: At least 5 of 7 days/Wk (IRF) Estimated Hrs Per Day: 1.5 hours per day Patient and/or Family Agrees t: Yes Safety Risks/Education Patient Education: Correct Positioning Teaching Recipient: Patient Teaching Methods: Discussion Response to Teaching: Return Demonstration Time Time In: 1300 Time Out: 1315 DATE: Sep 06, 2022 Total Billed Treatment Time: 15 Total Billed Treatment 1, Ex RUDI SCHWARTZ [facility] GUIDE Sep 06, 2022 14:39
[2022-09-06] MEDS: ACETAMINOPHEN 325 MG TABLET PO PRN (15:28)
[2022-09-06 19:51] VITALS: BP 105/66
[2022-09-06] MEDS: MELATONIN 3 MG TABLET PO PRN (20:55)
--- NOTE | 2022-09-07 05:45 | PM&R Progress Note ---
Subjective HPI/CC On Admission Date Seen by Provider: Sep 07, 2022 Time Seen by Provider: 08:30 Subjective/Events-last exam 09/07/2022: No major issues Confusion is improved No falls Eating ok 09/06/2022: Patient doing well Confusion still present Spoke to cousin at bedside No falls but increased risk 09/05/2022: Overall stable Frail status BP stable Completing PO abx 09/04/2022: Improved overall No falls Improved ambulation Gaining strength Eating is minimal 09/03/2022: Improved mentation Very frail Participation is good No falls No pain Switched IV abx to PO Review of Systems General: Fatigue, Malaise Neurological: Confusion Objective Exam Vital Signs Vital Signs Date Time Temp Pulse Resp B/P (MAP) Pulse Ox O2 Delivery O2 Flow Rate FiO2 09/07/22 08:56 Room Air 09/07/22 08:26 36.5 74 98 21 09/07/22 08:05 0.00 09/07/22 07:30 18 107/62 (77) Capillary Refill : General Appearance: No Apparent Distress, WD/WN, Chronically ill HEENT: PERRL/EOMI, Normal ENT Inspection, Pharynx Normal Neck: Full Range of Motion, Normal Inspection, Non Tender, Supple, Carotid Bruit Respiratory: Chest Non Tender, Lungs Clear, Normal Breath Sounds, No Accessory Muscle Use, No Respiratory Distress Cardiovascular: Regular Rate, Rhythm, No Edema, No Gallop, No JVD, No Murmur, Normal Peripheral Pulses Gastrointestinal: Normal Bowel Sounds, No Organomegaly, No Pulsatile Mass, Non Tender, Soft Back: Normal Inspection, No CVA Tenderness, No Vertebral Tenderness Extremity: Normal Capillary Refill, Normal Inspection, Normal Range of Motion, Non Tender, No Calf Tenderness, No Pedal Edema Neurologic/Psychiatric: Alert, Oriented x3, Abnormal Gait, Depressed Affect, Disoriented, Motor Weakness Skin: Normal Color, Warm/Dry Lymphatic: No Adenopathy Results/Procedures Lab Patient resulted labs reviewed. FIM Transfers Therapy Code Descriptions/Definitions Functional [place] Measure: 0=Not Assessed/NA 4=Minimal Assistance 1=Total Assistance 5=Supervision or Setup 2=Maximal Assistance 6=Modified [place] 3=Moderate Assistance 7=Complete IndependenceSCALE: Activities may be completed with or without assistive devices. 0-Lwrqvcvqze-gwvwoqe completes the activity by him/herself with no assistance from a helper. 5-Set-up or Clean-up Assistance-helper sets up or cleans up; patient completes activity. [place] assists only prior to or following the activity. 4-Supervision or Touching Assistance-helper provides verbal cues and/or touching/steadying and/or contact guard assistance as patient completes activity. Assistance may be provided throughout the activity or intermittently. 3-Partial/Moderate Assistance-helper does LESS THAN HALF the effort. [place] lifts, holds or supports trunk or limbs, but provides less than half the effort. 2-Substantial/Maximal Assistance-helper does MORE THAN HALF the effort. [place] lifts or holds trunk or limbs and provides more than half the effort. 4-Cmkansgpv-kuaszq does ALL the effort. Patient does none of the effort to complete the activity. Or, the assistance of 2 or more helpers is required for the patient to complete the activity. If activity was not attempted, code reason: 7-Patient Refused. 9-Not Applicable-not attempted and the patient did not perform the activity before the current illness, exacerbation or injury. 10-Not Attempted due to Environmental Limitations-(lack of equipment, weather restraints, etc.). 88-Not Attempted due to Medical Conditions or Safety Concerns. Roll Left to Right (QC): 6 Sit to Lying (QC): 6 Sit to Stand (QC): 6 (from higher seat surface, low surface 4) Chair/Slm-rv-Qqpxz Xfer(QC): 4 (needs assist to move inside walker and turn AD to approach chair or bed safely) Car Transfer (QC): 6 Gait Training Does the Patient Walk?: Yes Walk 10 feet (QC): 4 Walk 50 ft with 2 Turns(QC): 4 Walk 150 ft (QC): 88 Walking 10ft/uneven surface-QC: 88 Gait Persons Needed: 1 Gait Assistive Device: FWW Wheelchair Training Distance: 100' Wheel 50 ft with 2 turns (QC): 3 Wheel 150 ft (QC): 88 Stair Training 1 Step (curb) (QC): 88 4 Steps (QC): 88 12 Steps (QC): 88 Balance Picking up an Object (QC): 4 (CGA using a hat copyist) ADL-Treatment Eating (QC): 6 (IND with snacks and coffee) Oral Hygiene (QC): 4 (Supervison) Shower/Bathe Self (QC): 4 (SBA, pt able to wash all parts. Max VCs) Upper Body Dressing (QC): 4 (SBA, max VCs) Lower Body Dressing (QC): 4 (SBA, max VCs) On/Off Footwear (QC): 4 (SBA) Toileting Hygiene (QC): 4 (Max VCs, pt able to perform pericare and wash buttocks, manage pants up/down.) Assessment/Plan Assessment and Plan Assess & Plan/Chief Complaint Assessment: Acute metabolic encephalopathy UTI Advanced age Cachexia Allergies Recent COVID Fall risk Plan: PT OT Increase po nutrition Complete abx 09/03/2022: Improved mentation Frail status Change IV abx to PO 09/04/2022: Increase PO intake Fall risk 09/05/2022: Monitor for falls 09/06/2022: Monitor confusion COVID related decline noted 09/07/2022: Continue aggressive rehab (1) Encephalopathy acute (2) UTI (urinary tract infection) Status: Acute (3) Debility Status: Acute (4) COPD (chronic obstructive pulmonary disease) Status: Chronic (5) Emaciation Status: Acute (6) Generalized weakness Status: Acute (7) Advanced age (8) DNR (do not resuscitate) ELLIS JOSUE DO Sep 07, 2022 05:45
[2022-09-07 07:30] VITALS: BP 107/62
[2022-09-07] MEDS: RT-ALBUTEROL SULF 2.5 MG/3 ML PRE-MIX VIAL INH SCH (08:05)
[2022-09-07 08:26] VITALS: BP 107/62
[2022-09-07] MEDS: AMOXICILLIN 500 MG (POLYMOX) CAP PO SCH ×3 (09:51→21:21)
[2022-09-07] MEDS: DOCUSATE SODIUM 100 MG (COLACE) CAP PO SCH ×2 (09:51→21:20)
[2022-09-07] MEDS: SENNA W/DOCUSATE (SENOKOT S) TABLET PO SCH ×2 (09:52→21:20)
[2022-09-07] MEDS: SENNOSIDES 8.6 MG (SENOKOT) TAB PO SCH ×2 (09:52→21:20)
[2022-09-07] MEDS: polyethylene glycoL POWDER 17 GM (MIRALAX) PACK PO SCH ×2 (09:52→21:20)
[2022-09-07] MEDS: ENOXAPARIN INJECTION 30 MG/0.3 ML SYR SC SCH (12:15)
[2022-09-07 20:42] VITALS: BP 101/62
[2022-09-07] MEDS: MELATONIN 3 MG TABLET PO PRN (21:20)
[2022-09-07] MEDS: ACETAMINOPHEN 325 MG TABLET PO PRN (21:22)
--- NOTE | 2022-09-08 05:29 | PM&R Progress Note ---
Subjective HPI/CC On Admission Date Seen by Provider: Sep 08, 2022 Time Seen by Provider: 10:00 Subjective/Events-last exam 09/08/2022: No major issues Confusion remains Thin and frail 09/07/2022: No major issues Confusion is improved No falls Eating ok 09/06/2022: Patient doing well Confusion still present Spoke to cousin at bedside No falls but increased risk 09/05/2022: Overall stable Frail status BP stable Completing PO abx 09/04/2022: Improved overall No falls Improved ambulation Gaining strength Eating is minimal 09/03/2022: Improved mentation Very frail Participation is good No falls No pain Switched IV abx to PO Review of Systems General: Fatigue, Malaise Objective Exam Vital Signs Vital Signs Date Time Temp Pulse Resp B/P (MAP) Pulse Ox O2 Delivery O2 Flow Rate FiO2 09/08/22 20:02 Room Air 09/08/22 19:52 36.8 77 18 138/67 (90) 96 09/07/22 08:26 21 09/07/22 08:05 0.00 Capillary Refill : General Appearance: No Apparent Distress, WD/WN, Chronically ill HEENT: PERRL/EOMI, Normal ENT Inspection, Pharynx Normal Neck: Full Range of Motion, Normal Inspection, Non Tender, Supple, Carotid Bruit Respiratory: Chest Non Tender, Lungs Clear, Normal Breath Sounds, No Accessory Muscle Use, No Respiratory Distress Cardiovascular: Regular Rate, Rhythm, No Edema, No Gallop, No JVD, No Murmur, Normal Peripheral Pulses Gastrointestinal: Normal Bowel Sounds, No Organomegaly, No Pulsatile Mass, Non Tender, Soft Back: Normal Inspection, No CVA Tenderness, No Vertebral Tenderness Extremity: Normal Capillary Refill, Normal Inspection, Normal Range of Motion, Non Tender, No Calf Tenderness, No Pedal Edema Neurologic/Psychiatric: Alert, Oriented x3, Abnormal Gait, Depressed Affect, Disoriented, Motor Weakness Skin: Normal Color, Warm/Dry Lymphatic: No Adenopathy Results/Procedures Lab Laboratory Tests 09/08/22 05:37 Patient resulted labs reviewed. FIM Transfers Therapy Code Descriptions/Definitions Functional [place] Measure: 0=Not Assessed/NA 4=Minimal Assistance 1=Total Assistance 5=Supervision or Setup 2=Maximal Assistance 6=Modified [place] 3=Moderate Assistance 7=Complete IndependenceSCALE: Activities may be completed with or without assistive devices. 9-Gtxqqfgrqq-ntxlhcm completes the activity by him/herself with no assistance from a helper. 5-Set-up or Clean-up Assistance-helper sets up or cleans up; patient completes activity. [place] assists only prior to or following the activity. 4-Supervision or Touching Assistance-helper provides verbal cues and/or touching/steadying and/or contact guard assistance as patient completes activity. Assistance may be provided throughout the activity or intermittently. 3-Partial/Moderate Assistance-helper does LESS THAN HALF the effort. [place] lifts, holds or supports trunk or limbs, but provides less than half the effort. 2-Substantial/Maximal Assistance-helper does MORE THAN HALF the effort. [place] lifts or holds trunk or limbs and provides more than half the effort. 8-Qdwopfyxf-zfbqaa does ALL the effort. Patient does none of the effort to complete the activity. Or, the assistance of 2 or more helpers is required for the patient to complete the activity. If activity was not attempted, code reason: 7-Patient Refused. 9-Not Applicable-not attempted and the patient did not perform the activity before the current illness, exacerbation or injury. 10-Not Attempted due to Environmental Limitations-(lack of equipment, weather restraints, etc.). 88-Not Attempted due to Medical Conditions or Safety Concerns. Roll Left to Right (QC): 6 Sit to Lying (QC): 6 Sit to Stand (QC): 6 (from higher seat surface, low surface 4) Chair/Cvp-qi-Docfd Xfer(QC): 4 (needs assist to move inside walker and turn AD to approach chair or bed safely) Car Transfer (QC): 6 Gait Training Does the Patient Walk?: Yes Walk 10 feet (QC): 4 Walk 50 ft with 2 Turns(QC): 4 Walk 150 ft (QC): 88 Walking 10ft/uneven surface-QC: 88 Gait Persons Needed: 1 Gait Assistive Device: FWW Wheelchair Training Distance: 100' Wheel 50 ft with 2 turns (QC): 3 Wheel 150 ft (QC): 88 Stair Training 1 Step (curb) (QC): 88 4 Steps (QC): 88 12 Steps (QC): 88 Balance Picking up an Object (QC): 4 (CGA using a remelt furnace expediter) ADL-Treatment Eating (QC): 6 (IND with snacks and coffee) Oral Hygiene (QC): 4 (Supervison) Shower/Bathe Self (QC): 4 (SBA, pt able to wash all parts. Max VCs) Upper Body Dressing (QC): 4 (SBA, max VCs) Lower Body Dressing (QC): 4 (SBA, max VCs) On/Off Footwear (QC): 4 (SBA) Toileting Hygiene (QC): 4 (Max VCs, pt able to perform pericare and wash buttoc ks, manage pants up/down.) Assessment/Plan Assessment and Plan Assess & Plan/Chief Complaint Assessment: Acute metabolic encephalopathy UTI Advanced age Cachexia Allergies Recent COVID Fall risk Plan: PT OT Increase po nutrition Complete abx 09/03/2022: Improved mentation Frail status Change IV abx to PO 09/04/2022: Increase PO intake Fall risk 09/05/2022: Monitor for falls 09/06/2022: Monitor confusion COVID related decline noted 09/07/2022: Continue aggressive rehab 09/08/2022: Monitor closely (1) Encephalopathy acute (2) UTI (urinary tract infection) Status: Acute (3) Debility Status: Acute (4) COPD (chronic obstructive pulmonary disease) Status: Chronic (5) Emaciation Status: Acute (6) Generalized weakness Status: Acute (7) Advanced age (8) DNR (do not resuscitate) ELLIS JOSUE DO Sep 08, 2022 05:29
[2022-09-08 05:48] LABS: BASOPHILS # (AUTO) 0.1 10^3/uL (0.0-0.1); BASOPHILS % (AUTO) 1 % (0-10); EOSINOPHILS % (AUTO) 5 % (0-10); HEMATOCRIT 27 % (35-52); LYMPHOCYTES # (AUTO) 2.2 10^3/uL (1.0-4.0); LYMPHOCYTES % (AUTO) 27 % (12-44); MEAN CORPUSCULAR HEMOGLOBIN 30 pg (25-34); MEAN CORPUSCULAR HGB CONC 33 g/dL (32-36); MEAN CORPUSCULAR VOLUME 93 fL (80-99); WHITE BLOOD COUNT 8.3 10^3/uL (4.3-11.0)
[2022-09-08 06:04] LABS: ALBUMIN 2.7 GM/DL (3.2-4.5); POTASSIUM 4.4 MMOL/L (3.6-5.0)
[2022-09-08 06:05] LABS: CALCIUM 8.7 MG/DL (8.5-10.1)
[2022-09-08 06:06] LABS: TOTAL PROTEIN 5.7 GM/DL (6.4-8.2)
[2022-09-08 06:08] LABS: BILIRUBIN,TOTAL 0.3 MG/DL (0.1-1.0)
[2022-09-08 06:10] LABS: CREATININE SERUM 0.86 MG/DL (0.60-1.30)
[2022-09-08 06:22] LABS: EOSINOPHILS # (AUTO) 0.4 10^3/uL (0.0-0.3); HEMOGLOBIN 8.8 g/dL (11.5-16.0); MONOCYTES # (AUTO) 0.7 10^3/uL (0.0-1.0); MONOCYTES % (AUTO) 8 % (0-12); NEUTROPHILS # (AUTO) 4.5 10^3/uL (1.8-7.8); NEUTROPHILS % (AUTO) 54 % (42-75); PLATELET COUNT 444 10^3/uL (130-400)
[2022-09-08 08:00] VITALS: BP 113/57
[2022-09-08] MEDS: DOCUSATE SODIUM 100 MG (COLACE) CAP PO SCH ×2 (08:27→20:12)
[2022-09-08] MEDS: ACETAMINOPHEN 325 MG TABLET PO PRN (08:27)
[2022-09-08] MEDS: SENNOSIDES 8.6 MG (SENOKOT) TAB PO SCH ×2 (08:30→20:13)
[2022-09-08] MEDS: SENNA W/DOCUSATE (SENOKOT S) TABLET PO SCH ×2 (08:30→20:13)
[2022-09-08] MEDS: polyethylene glycoL POWDER 17 GM (MIRALAX) PACK PO SCH ×2 (08:30→20:13)
--- NOTE | 2022-09-08 08:47 | Physical Therapy Daily Note ---
PT Daily Note-Current Subjective Pt in BR w/Nurse upon arrival. Pt agrees to PT. Pain Numeric Pain Scale: 5-Moderate Pain Location: Right, Left Location Body Site: Thigh Pain Description: Ache Section J - Health Conditions 1. Rarely or not at all 2. Occasionally 3. Frequently 4. Almost constantly 8. Unable to answer Pain Effect on Sleep: 1 Pain Interference with Therapy: 1 Pain Interference w/Day-to-Day: 1 Mental Status Patient Orientation: Person, Confused, Place Transfers SCALE: Activities may be completed with or without assistive devices. 6-Qdaqmjtmcf-jfvxudn completes the activity by him/herself with no assistance from a helper. 5-Set-up or Clean-up Assistance-helper sets up or cleans up; patient completes activity. [place] assists only prior to or following the activity. 4-Supervision or Touching Assistance-helper provides verbal cues and/or touching/steadying and/or contact guard assistance as patient completes activity. Assistance may be provided throughout the activity or intermittently. 3-Partial/Moderate Assistance-helper does LESS THAN HALF the effort. [place] lifts, holds or supports trunk or limbs, but provides less than half the effort. 2-Substantial/Maximal Assistance-helper does MORE THAN HALF the effort. [place] lifts or holds trunk or limbs and provides more than half the effort. 9-Ncbfqjphu-fvctdv does ALL the effort. Patient does none of the effort to complete the activity. Or, the assistance of 2 or more helpers is required for the patient to complete the activity. If activity was not attempted, code reason: 7-Patient Refused. 9-Not Applicable-not attempted and the patient did not perform the activity before the current illness, exacerbation or injury. 10-Not Attempted due to Environmental Limitations-(lack of equipment, weather restraints, etc.). 88-Not Attempted due to Medical Conditions or Safety Concerns. Sit to Stand (QC): 3 Weight Bearing Full Weight Bearing Full Weight Bearing Gait Training Does the Patient Walk?: Yes Walk 10 feet (QC): 4 Gait Persons Needed: 1 Gait Assistive Device: FWW Exercises Seated Therapy Exercises: Ankle pumps, Long arc quads, Kicking activity, Hip abd/add, Glut set Seated Reps: 15 Treatments After pt finishes toileting & washes hands, pt reports fatigue and returns to recliner to rest. Pt completes Seated EX w/VC & TC for instruction. Pt needs redirection and encouragement to attempt longer walk but pt is easily distracted and cannot stay on task. All needs met, call light in hand at recliner. Assessment Current Status: Fair Progress Pt remains confused and easily distracted. PT Casing Crew Pusher Goals Skilled Nursing Goals PT Casing Crew Pusher Goals Time Frame: Sep 16, 2022 Roll Left & Right (QC): 6 Sit to Lying (QC): 6 Lying-Sitting on Side/Bed(QC): 6 Sit to Stand (QC): 4 Chair/Sva-qe-Rvydt Xfer(QC): 4 Toilet Transfer (QC): 4 Car Transfer (QC): 4 Does the Patient Walk: Yes Walk 10 feet (QC): 4 Walk 50ft with 2 Turns (QC): 4 Walk 150 ft (QC): 4 Walking 10ft on Uneven Surface: 4 1 Step (curb) (QC): 4 4 Steps (QC): 4 12 Steps (QC): 88 Picking up an Object (QC): 4 Wheel 50 feet with 2 turns (QC: 6 Wheel 150 feet: 6 PT Plan Problem List Problem List: Activity Tolerance, Functional Strength Treatment/Plan Treatment Plan: Continue Plan of Care Treatment Plan: Bed Mobility, Education, Functional Activity Pj, Functional Strength, Group Therapy, Gait, Safety, Therapeutic Exercise, Transfers Treatment Duration: Sep 16, 2022 Frequency: At least 5 of 7 days/Wk (IRF) Estimated Hrs Per Day: 1.5 hours per day Patient and/or Family Agrees t: Yes Safety Risks/Education Patient Education: Safety Issues Teaching Recipient: Patient Teaching Methods: Discussion Response to Teaching: Reinforcement Needed Time Time In: 800 Time Out: 845 DATE: Sep 08, 2022 Total Billed Treatment Time: 845 Total Billed Treatment 1, FA (15m), GT (10m) & EX (20m) NATHANAEL SMITH DESKTOP SUPPORT ENGINEER Sep 08, 2022 08:47
--- NOTE | 2022-09-08 10:47 | Speech Therapy Daily Note ---
Speech Daily Progress Note Subjective Date Seen by Provider: Sep 08, 2022 Time Seen by Provider: 10:00 The patient was seated upright in her recliner, awake and alert, upon entrance to her room by the clinician. The patient was reading a book on her susan. The patient greeted the clinician appropriately and was agreeable to participation in the cognitive linguistic treatment session. Objective The patient completed the SLUMS on this date with a score of +8/30 which correlates to a result of "dementia" per SLUMS protocol. The patient displayed d ifficulty with orientation, delayed recall, and problem solving. Due to the patient's displayed difficulties, the clinician presented in-home safety scenarios for the patient. The patient was unable to provide appropriate responses or solutions to the safety scenarios and could not recall the emergency phone number to contact. The patient required maximum verbal cueing from the clinician to identify an appropriate, safe solution to a house fire, a medical emergency, and a deep wound. As the patient is unable to provide appropriate solutions and continues to display moderate to severe impairments throughout the SLUMS, the clinician is concerned regarding her ability to return home independently. ST will continue to target home safety problem solving with the patient. Assessment Assessment Current Status: Poor Progress Treatment Plan Continue Plan of Care Speech Short Term Goals Short Term Goals Short Term Goals 1. The patient will provide appropriate solutions to in-home safety scenarios with 80% accuracy, independently. Time Frame-STG: Five Days. Speech Longterm Goals Building Appraiser Goals 1. The patient will display improved cognitive linguistic communication for safe discharge home to the least restrictive environment. Time Frame: One Week. Speech-Plan Treatment Plan Speech Therapy Treatment Plan: Continue Plan of Care Treatment Duration: Sep 03, 2022 Frequency: Modified Program (IRF) Estimated Hrs Per Day: Other Rehab Potential: Poor Pt/Family Agrees to Plan: Yes Safety Risks/Education Teaching Recipient: Patient Teaching Methods: Discussion Response to Teaching: Reinforcement Needed Education Topics Provided: Cognitive Exercises, Plan of Care Discharge Recommendations Post Acute ST Time Speech Therapy Time In: 10:00 Speech Therapy Time Out: 10:30 DATE: Sep 08, 2022 Total Billed Time: 30 Billed Treatment Time 1ASHOKBLAZE IBARRAELIER Sep 08, 2022 10:46
--- NOTE | 2022-09-08 11:20 | Occupational Ther Daily Note ---
OT Current Status-Daily Note Subjective Pt up in recliner, agreeable to OT tx. Mental Status/Objective Patient Orientation: Person, Confused ADL-Treatment Therapy Code Descriptions/Definitions Functional [place] Measure: 0=Not Assessed/NA 4=Minimal Assistance 1=Total Assistance 5=Supervision or Setup 2=Maximal Assistance 6=Modified [place] 3=Moderate Assistance 7=Complete IndependenceSCALE: Activities may be completed with or without assistive devices. 5-Uinbaujrek-eievhxf completes the activity by him/herself with no assistance from a helper. 5-Set-up or Clean-up Assistance-helper sets up or cleans up; patient completes activity. [place] assists only prior to or following the activity. 4-Supervision or Touching Assistance-helper provides verbal cues and/or touching/steadying and/or contact guard assistance as patient completes activity. Assistance may be provided throughout the activity or intermittently. 3-Partial/Moderate Assistance-helper does LESS THAN HALF the effort. [place] lifts, holds or supports trunk or limbs, but provides less than half the effort. 2-Substantial/Maximal Assistance-helper does MORE THAN HALF the effort. [place] lifts or holds trunk or limbs and provides more than half the effort. 2-Ljrdzojdz-dfwmte does ALL the effort. Patient does none of the effort to complete the activity. Or, the assistance of 2 or more helpers is required for the patient to complete the activity. If activity was not attempted, code reason: 7-Patient Refused. 9-Not Applicable-not attempted and the patient did not perform the activity before the current illness, exacerbation or injury. 10-Not Attempted due to Environmental Limitations-(lack of equipment, weather restraints, etc.). 88-Not Attempted due to Medical Conditions or Safety Concerns. Toileting Hygiene (QC): 4 (CGA) Toilet Transfer (QC): 4 Other Treatment Pt up in recliner, agreeable to OT Tx. Pt stood from recliner, CGA and performed functional mobility to bathroom. Pt transferred to toilet, completed toileting with CGA, no VCs required for sequencing. Pt stood at sink to wash hands, VCs required to use soap. Pt then used FWW to transfer to table in [facility] common area. OT tx focused on increasing BUE strength and activity tolerance, attention to task, and direction following. Pt easily distracted with stories, requiring frequent redirection to tasks. Pt placed x50 pegs into foam pegboard. Pt able to better complete task, if OT was not seated directly next to pt due to pt being easily distracted telling stories. If OT was behind pt and out of pt's sight, pt would complete task with min VCs. Pt then completed UE reaching task, placing 2nd row of pegs on top of the first 50, moderate VCS. Pt completed sorting activity "Perfection", placing pieces into matching slot on game board. Pt completed x19 shapes total, 4 errors requiring assistance to correct. Pt returned to her room, CGA. Post tx, pt in recliner, call light in reach and all needs met. Education OT Patient Education: Correct positioning, Energy conservation, Modified ADL techniques, Progress toward Goal/Update tx plan, Purpose of tx/functional activities, Rehab process Teaching Recipient: Patient Teaching Methods: Discussion Response to Teaching: Verbalize Understanding OT Short Term Goals Short Term Goals Time Frame: Sep 19, 2022 Shower/bathe self: 5 Upper body dressin Lower body dressin Putting on/taking off footwear: 5 OT Assisted Goals Chief Quality Officer Goals Time Frame: Sep 26, 2022 Acute change in mental status: 1 Inattention: 1 Disorganized thinkin Altered level of consciousness: 0 Eating (QC): 6 Oral Hygiene (QC): 6 Toileting Hygiene (QC): 6 Shower/Bathe Self (QC): 6 Upper Body Dressing (QC): 6 Lower Body Dressing (QC): 6 On/Off Footwear (QC): 6 Additional Goals: 1-Demonstrate ADL Tasks, 2-Verbalize Understanding, 3- ImproveStrength/Pj 1=Demonstrate adherence to instructed precautions during ADL tasks. 2=Patient will verbalize/demonstrate understanding of assistive devices/modifications for ADL. 3=Patient will improve strength/tolerance for activity to enable patient to perform ADL's. OT Education/Plan Problem List/Assessment Assessment: Decreased Activ Tolerance, Decreased Safety Aware, Decreased UE Strength, Impaired Cognition, Impaired Funct Balance, Impaired I ADL's, Impaired Self-Care Skills Discharge Recommendations Plan/Recommendations: Continue POC Treatment Plan/Plan of Care Patient would benefit from OT for education, treatment and training to promote independence in ADL's, mobility, safety and/or upper extremity function for ADL's. Plan of Care: ADL Retraining, Functional Mobility, Group Exercise/Act as Ind, UE Funct Exercise/Act Treatment Duration: Sep 26, 2022 Frequency: At least 5 of 7 days/Wk (IRF) Estimated Hrs Per Day: 1.5 hours per day Agreement: Yes Rehab Potential: Poor Time Start Time: 10:45 Stop Time: 12:00 DATE: Sep 08, 2022 Total Time Billed (hr/min): 75 Billed Treatment Time 1, ADL (15'), FA 4 (60') PRICILLA JOLLY OT Sep 08, 2022 11:20
[2022-09-08] MEDS: ENOXAPARIN INJECTION 30 MG/0.3 ML SYR SC SCH (13:33)
--- NOTE | 2022-09-08 13:53 | Occupational Ther Daily Note ---
OT Current Status-Daily Note Subjective Pt seated in recliner, agreeable to OT Tx with some encouragement. Pt easily distracted, requiring redirection to task. ADL-Treatment Therapy Code Descriptions/Definitions Functional [place] Measure: 0=Not Assessed/NA 4=Minimal Assistance 1=Total Assistance 5=Supervision or Setup 2=Maximal Assistance 6=Modified [place] 3=Moderate Assistance 7=Complete IndependenceSCALE: Activities may be completed with or without assistive devices. 1-Twwaoyshfr-zlaztol completes the activity by him/herself with no assistance from a helper. 5-Set-up or Clean-up Assistance-helper sets up or cleans up; patient completes activity. [place] assists only prior to or following the activity. 4-Supervision or Touching Assistance-helper provides verbal cues and/or touching/steadying and/or contact guard assistance as patient completes activ ity. Assistance may be provided throughout the activity or intermittently. 3-Partial/Moderate Assistance-helper does LESS THAN HALF the effort. [place] lifts, holds or supports trunk or limbs, but provides less than half the effort. 2-Substantial/Maximal Assistance-helper does MORE THAN HALF the effort. [place] lifts or holds trunk or limbs and provides more than half the effort. 3-Ckdeujnkt-xzgcus does ALL the effort. Patient does none of the effort to complete the activity. Or, the assistance of 2 or more helpers is required for the patient to complete the activity. If activity was not attempted, code reason: 7-Patient Refused. 9-Not Applicable-not attempted and the patient did not perform the activity before the current illness, exacerbation or injury. 10-Not Attempted due to Environmental Limitations-(lack of equipment, weather restraints, etc.). 88-Not Attempted due to Medical Conditions or Safety Concerns. Other Treatment Pt up in recliner, agreeable to OT Tx. Pt attempted to complete crossword puzzle and word search, but had difficulty due to decreased vision and difficulty seeing puzzles, even with magnifying glass. Pt states she has difficulty completing unless the lighting is good. All pt's lights in her room turned on, but pt unable to complete either puzzle. Instead pt completed "Connect 4" task, sorting pieces into game board by color, requiring reaching of BUEs. OT instructed pt to place one color on one side of game board, and other color on other side. Pt verbalized understanding, but then unable to follow instructions for task. Pt required instructions and demonstration x3 times before she was able to follow instructions of task with min VCS. Post tx, pt in recliner, call light in reach and all needs met. chair alarm activated. OT Short Term Goals Short Term Goals Time Frame: Sep 19, 2022 Shower/bathe self: 5 Upper body dressin Lower body dressin Putting on/taking off footwear: 5 OT Prison Goals Prison Goals Time Frame: Sep 26, 2022 Acute change in mental status: 1 Inattention: 1 Disorganized thinkin Altered level of consciousness: 0 Eating (QC): 6 Oral Hygiene (QC): 6 Toileting Hygiene (QC): 6 Shower/Bathe Self (QC): 6 Upper Body Dressing (QC): 6 Lower Body Dressing (QC): 6 On/Off Footwear (QC): 6 Additional Goals: 1-Demonstrate ADL Tasks, 2-Verbalize Understanding, 3- ImproveStrength/Pj 1=Demonstrate adherence to instructed precautions during ADL tasks. 2=Patient will verbalize/demonstrate understanding of assistive devices/modifications for ADL. 3=Patient will improve strength/tolerance for activity to enable patient to perform ADL's. OT Education/Plan Problem List/Assessment Assessment: Decreased Activ Tolerance, Decreased Safety Aware, Decreased UE Strength, Impaired Cognition, Impaired Funct Balance, Impaired I ADL's, Impaired Self-Care Skills Discharge Recommendations Plan/Recommendations: Continue POC Therapy Discharge Recommendati: 24 Hour Supervision Treatment Plan/Plan of Care Patient would benefit from OT for education, treatment and training to promote independence in ADL's, mobility, safety and/or upper extremity function for ADL's. Plan of Care: ADL Retraining, Functional Mobility, Group Exercise/Act as Ind, UE Funct Exercise/Act Treatment Duration: Sep 26, 2022 Frequency: At least 5 of 7 days/Wk (IRF) Estimated Hrs Per Day: 1.5 hours per day Agreement: Yes Rehab Potential: Poor Time Start Time: 13:30 Stop Time: 14:00 DATE: Sep 08, 2022 Total Time Billed (hr/min): 30 Billed Treatment Time 1, FA 2 PRICILLA JOLLY OT Sep 08, 2022 13:53
[2022-09-08 19:52] VITALS: BP 138/67
--- NOTE | 2022-09-09 06:47 | PM&R Progress Note ---
ELLIS JOSUE DO 09/09/22 0647: Subjective HPI/CC On Admission Date Seen by Provider: Sep 09, 2022 Time Seen by Provider: 09:00 Subjective/Events-last exam 09/09/2022: No major changes Cognition is the same Frail status 09/08/2022: No major issues Confusion remains Thin and frail 09/07/2022: No major issues Confusion is improved No falls Eating ok 09/06/2022: Patient doing well Confusion still present Spoke to cousin at bedside No falls but increased risk 09/05/2022: Overall stable Frail status BP stable Completing PO abx 09/04/2022: Improved overall No falls Improved ambulation Gaining strength Eating is minimal 09/03/2022: Improved mentation Very frail Participation is good No falls No pain Switched IV abx to PO Review of Systems General: Fatigue, Malaise Objective Exam Vital Signs Vital Signs Date Time Temp Pulse Resp B/P (MAP) Pulse Ox O2 Delivery O2 Flow Rate FiO2 09/09/22 22:32 Room Air 09/09/22 20:15 93 09/09/22 19:37 36.8 74 20 105/67 (80) 09/07/22 08:26 21 09/07/22 08:05 0.00 Capillary Refill : General Appearance: No Apparent Distress, WD/WN, Chronically ill HEENT: PERRL/EOMI, Normal ENT Inspection, Pharynx Normal Neck: Full Range of Motion, Normal Inspection, Non Tender, Supple, Carotid Bruit Respiratory: Chest Non Tender, Lungs Clear, Normal Breath Sounds, No Accessory Muscle Use, No Respiratory Distress Cardiovascular: Regular Rate, Rhythm, No Edema, No Gallop, No JVD, No Murmur, Normal Peripheral Pulses Gastrointestinal: Normal Bowel Sounds, No Organomegaly, No Pulsatile Mass, Non Tender, Soft Back: Normal Inspection, No CVA Tenderness, No Vertebral Tenderness Extremity: Normal Capillary Refill, Normal Inspection, Normal Range of Motion, Non Tender, No Calf Tenderness, No Pedal Edema Neurologic/Psychiatric: Alert, Oriented x3, Abnormal Gait, Depressed Affect, Disoriented, Motor Weakness Skin: Normal Color, Warm/Dry Lymphatic: No Adenopathy Results/Procedures Lab Patient resulted labs reviewed. FIM Transfers Therapy Code Descriptions/Definitions Functional [place] Measure: 0=Not Assessed/NA 4=Minimal Assistance 1=Total Assistance 5=Supervision or Setup 2=Maximal Assistance 6=Modified [place] 3=Moderate Assistance 7=Complete IndependenceSCALE: Activities may be completed with or without assistive devices. 8-Tnoehnxcob-vfiitmz completes the activity by him/herself with no assistance from a helper. 5-Set-up or Clean-up Assistance-helper sets up or cleans up; patient completes activity. [place] assists only prior to or following the activity. 4-Supervision or Touching Assistance-helper provides verbal cues and/or touching/steadying and/or contact guard assistance as patient completes activity. Assistance may be provided throughout the activity or intermittently. 3-Partial/Moderate Assistance-helper does LESS THAN HALF the effort. [place] lifts, holds or supports trunk or limbs, but provides less than half the effort. 2-Substantial/Maximal Assistance-helper does MORE THAN HALF the effort. [place] lifts or holds trunk or limbs and provides more than half the effort. 9-Iuvgenosg-ioltai does ALL the effort. Patient does none of the effort to complete the activity. Or, the assistance of 2 or more helpers is required for the patient to complete the activity. If activity was not attempted, code reason: 7-Patient Refused. 9-Not Applicable-not attempted and the patient did not perform the activity before the current illness, exacerbation or injury. 10-Not Attempted due to Environmental Limitations-(lack of equipment, weather restraints, etc.). 88-Not Attempted due to Medical Conditions or Safety Concerns. Roll Left to Right (QC): 6 Sit to Lying (QC): 6 Sit to Stand (QC): 3 Chair/Xdp-wz-Kgrlx Xfer(QC): 4 (needs assist to move inside walker and turn AD to approach chair or bed safely) Car Transfer (QC): 6 Gait Training Does the Patient Walk?: Yes Walk 10 feet (QC): 4 Walk 50 ft with 2 Turns(QC): 4 Walk 150 ft (QC): 88 Walking 10ft/uneven surface-QC: 88 Gait Persons Needed: 1 Gait Assistive Device: FWW Wheelchair Training Distance: 100' Wheel 50 ft with 2 turns (QC): 3 Wheel 150 ft (QC): 88 Stair Training 1 Step (curb) (QC): 88 4 Steps (QC): 88 12 Steps (QC): 88 Balance Picking up an Object (QC): 4 (CGA using a vice principal) ADL-Treatment Eating (QC): 6 (IND with snacks and coffee) Oral Hygiene (QC): 4 (Supervison) Shower/Bathe Self (QC): 4 (SBA, pt able to wash all parts. Max VCs) Upper Body Dressing (QC): 4 (SBA, max VCs) Lower Body Dressing (QC): 4 (SBA, max VCs) On/Off Footwear (QC): 4 (SBA) Toileting Hygiene (QC): 4 (CGA) Toilet Transfer (QC): 4 Assessment/Plan Assessment and Plan Assess & Plan/Chief Complaint Assessment: Acute metabolic encephalopathy UTI Advanced age Cachexia Allergies Recent COVID Fall risk Plan: PT OT Increase po nutrition Complete abx 09/03/2022: Improved mentation Frail status Change IV abx to PO 09/04/2022: Increase PO intake Fall risk 09/05/2022: Monitor for falls 09/06/2022: Monitor confusion COVID related decline noted 09/07/2022: Continue aggressive rehab 09/08/2022: Monitor closely 09/09/2022: Monitor closely Fall risk (1) Encephalopathy acute (2) UTI (urinary tract infection) Status: Acute (3) Debility Status: Acute (4) COPD (chronic obstructive pulmonary disease) Status: Chronic (5) Emaciation Status: Acute (6) Generalized weakness Status: Acute (7) Advanced age (8) DNR (do not resuscitate) NATHANAEL SMITH [facility] 09/09/22 1107: ELLIS JOSUE DO Sep 09, 2022 06:47 NATHANAEL SMITH PTA Sep 09, 2022 11:07
[2022-09-09 08:00] VITALS: BP 117/70
[2022-09-09] MEDS: SENNOSIDES 8.6 MG (SENOKOT) TAB PO SCH ×2 (08:47→20:15)
[2022-09-09] MEDS: polyethylene glycoL POWDER 17 GM (MIRALAX) PACK PO SCH ×2 (08:47→20:15)
[2022-09-09] MEDS: SENNA W/DOCUSATE (SENOKOT S) TABLET PO SCH ×2 (08:47→20:15)
[2022-09-09] MEDS: DOCUSATE SODIUM 100 MG (COLACE) CAP PO SCH ×2 (08:48→20:15)
--- NOTE | 2022-09-09 08:54 | Occupational Ther Daily Note ---
OT Current Status-Daily Note Subjective Pt up EOB, agreeable to OT Tx with some encouragement and coaxing. Mental Status/Objective Patient Orientation: Person, Confused ADL-Treatment Therapy Code Descriptions/Definitions Functional [place] Measure: 0=Not Assessed/NA 4=Minimal Assistance 1=Total Assistance 5=Supervision or Setup 2=Maximal Assistance 6=Modified [place] 3=Moderate Assistance 7=Complete IndependenceSCALE: Activities may be completed with or without assistive devices. 2-Ppmotjhcap-cbnhvfk completes the activity by him/herself with no assistance from a helper. 5-Set-up or Clean-up Assistance-helper sets up or cleans up; patient completes activity. [place] assists only prior to or following the activity. 4-Supervision or Touching Assistance-helper provides verbal cues and/or touching/steadying and/or contact guard assistance as patient completes activity. Assistance may be provided throughout the activity or intermittently. 3-Partial/Moderate Assistance-helper does LESS THAN HALF the effort. [place] lifts, holds or supports trunk or limbs, but provides less than half the effort. 2-Substantial/Maximal Assistance-helper does MORE THAN HALF the effort. [place] lifts or holds trunk or limbs and provides more than half the effort. 7-Nqigvexyv-obepuf does ALL the effort. Patient does none of the effort to complete the activity. Or, the assistance of 2 or more helpers is required for the patient to complete the activity. If activity was not attempted, code reason: 7-Patient Refused. 9-Not Applicable-not attempted and the patient did not perform the activity before the current illness, exacerbation or injury. 10-Not Attempted due to Environmental Limitations-(lack of equipment, weather restraints, etc.). 88-Not Attempted due to Medical Conditions or Safety Concerns. Eating (QC): 6 Oral Hygiene (QC): 4 (Supervison seated.) Shower/Bathe Self (QC): 4 (CGA) Upper Body Dressing (QC): 4 (Supervision) Lower Body Dressing (QC): 4 (CGA) On/Off Footwear: 4 (Supervision) Toileting Hygiene (QC): 4 (CGA) Toilet Transfer (QC): 4 (CGA) Other Treatment Pt seated EOB, sit to stand with CGA, then used FWW to transfer into bathroom and onto toilet. Pt completed toileting, then transferred to w/c for sponge bath. Pt adamently declined a shower, stating she hates showering, but agreeable to sponge bath with encouragement and coaxing. Pt completed dressing, bath, and grooming as outlined above. Moderate-max encouragement required to complete tasks. Pt used FWW to transfer to recliner. Post tx, pt in recliner, call light in reach and all needs met, chair alarm activated. Education OT Patient Education: Correct positioning, Modified ADL techniques, Progress toward Goal/Update tx plan, Purpose of tx/functional activities, Rehab process Teaching Recipient: Patient Teaching Methods: Discussion Response to Teaching: Verbalize Understanding BIMS CAM BIMS Expression of Ideas and Wants: Without Difficulty Understanding Verbal Content: Usually Understands Brief Interview/Mental Status: Yes IRF CECILE BIMS: IRF CECILE BIMS Response (Comments) Value Repitition of Three Words Three 3 Recalls Socks No, Could Not Recall 0 Recalls Blue No, Could Not Recall 0 Recalls Bed No, Could Not Recall 0 Year Missed by 5 Yrs/No Answer (60's-70's) 0 Month Missed by 1 Mo/No Answer (October or November) 0 Day Incorrect or No Answer (Thursday) 0 Total 3 Should Staff Asses. Mental St.: No Memory/Recall Ability: None of Above Recalled CAM Mental Status Change/Baseline: 1 Inattention: 1 Disorganized thinkin Altered level of consciousness: 0 OT Short Term Goals Short Term Goals Time Frame: Sep 19, 2022 Shower/bathe self: 5 Upper body dressin Lower body dressin Putting on/taking off footwear: 5 OT Oil Laboratory Analyst Goals Oil Laboratory Analyst Goals Time Frame: Sep 26, 2022 Eating (QC): 6 (met) Oral Hygiene (QC): 6 (not met) Toileting Hygiene (QC): 6 (not met) Shower/Bathe Self (QC): 6 (not met) Upper Body Dressing (QC): 6 (not met) Lower Body Dressing (QC): 6 (not met) On/Off Footwear (QC): 6 (not met) Additional Goals: 1-Demonstrate ADL Tasks, 2-Verbalize Understanding, 3- ImproveStrength/Pj 1=Demonstrate adherence to instructed precautions during ADL tasks. 2=Patient will verbalize/demonstrate understanding of assistive devices/modifications for ADL. 3=Patient will improve strength/tolerance for activity to enable patient to perform ADL's. OT Education/Plan Problem List/Assessment Assessment: Decreased Activ Tolerance, Decreased Safety Aware, Decreased UE Strength, Impaired Cognition, Impaired Funct Balance, Impaired I ADL's, Impaired Self-Care Skills Discharge Recommendations Plan/Recommendations: Continue POC Treatment Plan/Plan of Care Patient would benefit from OT for education, treatment and training to promote independence in ADL's, mobility, safety and/or upper extremity function for ADL's. Plan of Care: ADL Retraining, Functional Mobility, Group Exercise/Act as Ind, UE Funct Exercise/Act Treatment Duration: Sep 26, 2022 Frequency: At least 5 of 7 days/Wk (IRF) Estimated Hrs Per Day: 1.5 hours per day Agreement: Yes Rehab Potential: Poor Time Start Time: 07:45 Stop Time: 09:00 DATE: Sep 09, 2022 Total Time Billed (hr/min): 75 Billed Treatment Time 1, ADL 5 PRICILLA JOLLY OT Sep 09, 2022 08:54
--- NOTE | 2022-09-09 09:38 | Speech Therapy Daily Note ---
Speech Daily Progress Note Subjective Date Seen by Provider: Sep 09, 2022 Time Seen by Provider: 09:30 The patient was seated in her recliner, awake and alert, upon entrance to her room by the clinician. The patient greeted the clinician appropriately and was agreeable to participation in the cognitive treatment session. Objective - Orientation: The patient was oriented to the location, city, state, and month. The patient was unable to recall the year. The patient continues to display confusion, with poor functional recall demonstrated. Occupational therapy completed treatment with the patient approximately 30 minutes prior to speech pathology's scheduled therapy. Rega rdless of maximum verbal and visual prompts from the clinician, the patient continues to state she has been sleeping all night and has not received therapy on this date. The clinician encouraged the patient to read her daily schedule, as well as, visualize her outfit (the patient has on daytime clothing). The patient continues to state she has not received any therapy and has been sleeping. The clinician requested the patient use the call light for assistance. The call light was handed to the patient, who did not know what the time was used for. The patient was unable to demonstrate which button she would use for assistance. Following direct modeling by the clinician, the patient was able to locate the red button. Safety cards were provided to the patient which depicted images of safety concerns in the home environment. The patient was asked to identify the safety concerns and provide an appropriate solution. The patient was unable to identify safety concerns without maximum verbal prompting from the clinician. The patient continued to identify the individual in the photos as "that's my ex-." The clinician remains concerned of the patient's safety and recommends 24/7 assistance in the home following discharge. Assessment Assessment Current Status: Poor Progress Treatment Plan Continue Plan of Care Speech Short Term Goals Short Term Goals Short Term Goals 1. The patient will provide appropriate solutions to in-home safety scenarios with 80% accuracy, independently. Time Frame-STG: Five Days. Speech Certified Medical Asst Goals Certified Medical Asst Goals 1. The patient will display improved cognitive linguistic communication for safe discharge home to the least restrictive environment. Time Frame: One Week. Speech-Plan Treatment Plan Speech Therapy Treatment Plan: Continue Plan of Care Treatment Duration: Sep 04, 2022 Frequency: Modified Program (IRF) Estimated Hrs Per Day: Other Rehab Potential: Poor Pt/Family Agrees to Plan: Yes Safety Risks/Education Teaching Recipient: Patient Teaching Methods: Demonstration, Discussion Response to Teaching: Reinforcement Needed Education Topics Provided: Orientation Strategies, Home Safety, Functional Recall Time Speech Therapy Time In: 09:30 Speech Therapy Time Out: 10:00 DATE: Sep 09, 2022 Total Billed Time: 30 Billed Treatment Time 1NAYAN ELIZABETH ST Sep 09, 2022 09:37
--- NOTE | 2022-09-09 10:58 | Physical Therapy Daily Note ---
PT Daily Note-Current Subjective Pt sitting in recliner upon arrival. Pt agrees to PT but needs encouragement/redirection to coax into completing tasks as pt often gets distracted and likes to tell stories. Pain Section J - Health Conditions 1. Rarely or not at all 2. Occasionally 3. Frequently 4. Almost constantly 8. Unable to answer Pain Effect on Sleep: 1 Pain Interference with Therapy: 1 Pain Interference w/Day-to-Day: 1 Mental Status Patient Orientation: Person, Confused, Place Transfers SCALE: Activities may be completed with or without assistive devices. 0-Sajqqplhuf-hxsnjvg completes the activity by him/herself with no assistance from a helper. 5-Set-up or Clean-up Assistance-helper sets up or cleans up; patient completes activity. [place] assists only prior to or following the activity. 4-Supervision or Touching Assistance-helper provides verbal cues and/or touching/steadying and/or contact guard assistance as patient completes activi ty. Assistance may be provided throughout the activity or intermittently. 3-Partial/Moderate Assistance-helper does LESS THAN HALF the effort. [place] lifts, holds or supports trunk or limbs, but provides less than half the effort. 2-Substantial/Maximal Assistance-helper does MORE THAN HALF the effort. [place] lifts or holds trunk or limbs and provides more than half the effort. 6-Fqxdwvpbp-ncanit does ALL the effort. Patient does none of the effort to complete the activity. Or, the assistance of 2 or more helpers is required for the patient to complete the activity. If activity was not attempted, code reason: 7-Patient Refused. 9-Not Applicable-not attempted and the patient did not perform the activity before the current illness, exacerbation or injury. 10-Not Attempted due to Environmental Limitations-(lack of equipment, weather restraints, etc.). 88-Not Attempted due to Medical Conditions or Safety Concerns. Sit to Stand (QC): 4 Toilet Transfer (QC): 4 Weight Bearing Full Weight Bearing Full Weight Bearing Gait Training Does the Patient Walk?: Yes Walk 150 ft (QC): 4 Gait Assistive Device: FWW Stair Training Stair Training: Handrails/: 2 handrails #of Steps: 3 1 Step (curb) (QC): 4 Exercises Seated Therapy Exercises: Ankle pumps, Long arc quads, Hip flexion, Hip abd/add Neuromuscular pt requires multiple VC to stay on task and correct form of ther-ex . consistent redirection is needed but can be bribed with hot coffee to finish tasks. Treatments pt preformed seated ther-ex and ambulation of aprox 125ft with vc of 40% for safety and to prevent falls. pt is able to transfer and preform 5 sit to stands with CGA for balance. pt is good to make stated goals and will continue Rx until reached. Assessment Current Status: Fair Progress PT Alf Goals Alf Goals PT Alf Goals Time Frame: Sep 16, 2022 Roll Left & Right (QC): 6 Sit to Lying (QC): 6 Lying-Sitting on Side/Bed(QC): 6 Sit to Stand (QC): 4 Chair/Vhp-gh-Iiizh Xfer(QC): 4 Toilet Transfer (QC): 4 Car Transfer (QC): 4 Does the Patient Walk: Yes Walk 10 feet (QC): 4 Walk 50ft with 2 Turns (QC): 4 Walk 150 ft (QC): 4 Walking 10ft on Uneven Surface: 4 1 Step (curb) (QC): 4 4 Steps (QC): 4 12 Steps (QC): 88 Picking up an Object (QC): 4 Wheel 50 feet with 2 turns (QC: 6 Wheel 150 feet: 6 PT Plan Treatment/Plan Treatment Plan: Continue Plan of Care Treatment Plan: Bed Mobility, Education, Functional Activity Pj, Functional Strength, Group Therapy, Gait, Safety, Therapeutic Exercise, Transfers Treatment Duration: Sep 16, 2022 Frequency: At least 5 of 7 days/Wk (IRF) Estimated Hrs Per Day: 1.5 hours per day Patient and/or Family Agrees t: Yes Time Time In: 1000 Time Out: 1100 DATE: Sep 09, 2022 Total Billed Treatment Time: 60 Total Billed Treatment 1, ex, gt x2, NATHANAEL Short ACCOUNT COORDINATOR Sep 09, 2022 10:58
[2022-09-09] MEDS: ENOXAPARIN INJECTION 30 MG/0.3 ML SYR SC SCH (11:30)
--- NOTE | 2022-09-09 15:28 | Physical Therapy Progress Note ---
Therapy Progress Note The patient has a mobility limitation that significantly impairs her/ability to participate in one or more mobility-related activities of daily living (MRADL)in the home. The patient is able to safely use the walker and functional mobility deficit can be sufficiently resolved with use of a walker instead of using another device such as wheelchair, cane, etc. NATHANAEL SMITH PTA Sep 09, 2022 15:28
--- NOTE | 2022-09-09 15:37 | Physical Therapy Daily Note ---
PT Daily Note-Current Subjective Pt sitting in recliner finishing lunch upon arrival. Pt's family is present. Pain Location: No Pain Reported Section J - Health Conditions 1. Rarely or not at all 2. Occasionally 3. Frequently 4. Almost constantly 8. Unable to answer Pain Effect on Sleep: 1 Pain Interference with Therapy: 1 Pain Interference w/Day-to-Day: 1 Mental Status Patient Orientation: Person, Confused, Place Transfers SCALE: Activities may be completed with or without assistive devices. 1-Atxnbdaarf-mndxnjv completes the activity by him/herself with no assistance from a helper. 5-Set-up or Clean-up Assistance-helper sets up or cleans up; patient completes activity. [place] assists only prior to or following the activity. 4-Supervision or Touching Assistance-helper provides verbal cues and/or touching/steadying and/or contact guard assistance as patient completes activity. Assistance may be provided throughout the activity or intermittently. 3-Partial/Moderate Assistance-helper does LESS THAN HALF the effort. [place] lifts, holds or supports trunk or limbs, but provides less than half the effort. 2-Substantial/Maximal Assistance-helper does MORE THAN HALF the effort. [place] lifts or holds trunk or limbs and provides more than half the effort. 7-Umruxivlc-wefimi does ALL the effort. Patient does none of the effort to complete the activity. Or, the assistance of 2 or more helpers is required for the patient to complete the activity. If activity was not attempted, code reason: 7-Patient Refused. 9-Not Applicable-not attempted and the patient did not perform the activity before the current illness, exacerbation or injury. 10-Not Attempted due to Environmental Limitations-(lack of equipment, weather restraints, etc.). 88-Not Attempted due to Medical Conditions or Safety Concerns. Weight Bearing Full Weight Bearing Full Weight Bearing Treatments Pt's niece discusses concern w/HUMAN RESOURCES COORDINATOR that pt won't have available 21 hr care thought to be available due to family being sick w/pneumonia. Discussed options and communicated w/SW. Pt resting at end of tx, finishing lunch w/family present and call light in hand. Assessment Current Status: Fair Progress Pt remains confused and HUMAN RESOURCES COORDINATOR communicates w/family of how pt remains impulsive and would need care for safety at home. PT Group Home Goals Group Home Goals PT Group Home Goals Time Frame: Sep 16, 2022 Roll Left & Right (QC): 6 Sit to Lying (QC): 6 Lying-Sitting on Side/Bed(QC): 6 Sit to Stand (QC): 4 Chair/Knr-fi-[place] Xfer(QC): 4 Toilet Transfer (QC): 4 Car Transfer (QC): 4 Does the Patient Walk: Yes Walk 10 feet (QC): 4 Walk 50ft with 2 Turns (QC): 4 Walk 150 ft (QC): 4 Walking 10ft on Uneven Surface: 4 1 Step (curb) (QC): 4 4 Steps (QC): 4 12 Steps (QC): 88 Picking up an Object (QC): 4 Wheel 50 feet with 2 turns (QC: 6 Wheel 150 feet: 6 PT Plan Problem List Problem List: Activity Tolerance, Safety Treatment/Plan Treatment Plan: Continue Plan of Care Treatment Plan: Bed Mobility, Education, Functional Activity Pj, Functional Strength, Group Therapy, Gait, Safety, Therapeutic Exercise, Transfers Treatment Duration: Sep 16, 2022 Frequency: At least 5 of 7 days/Wk (IRF) Estimated Hrs Per Day: 1.5 hours per day Patient and/or Family Agrees t: Yes Safety Risks/Education Patient Education: Safety Issues Teaching Recipient: Patient, Family Teaching Methods: Discussion Response to Teaching: Verbalize Understanding Time Time In: 1245 Time Out: 1300 DATE: Sep 09, 2022 Total Billed Treatment Time: 15 Total Billed Treatment 1, FA (15m) NATAHNAEL SMITH PTA Sep 09, 2022 15:37
[2022-09-09] MEDS: ACETAMINOPHEN 325 MG TABLET PO PRN (17:14)
[2022-09-09 19:37] VITALS: BP 105/67
--- NOTE | 2022-09-09 20:06 | Progress Note ---
DENG WELLER 09/09/22 2006: Progress Note I have reviewed all records for Francine Ramsay, a 87 year old female who was admitted to the [facility] rehab unit on 09/02 following encephalopathy and weakness following an admission for UTI and recent COVID. Durring her stay she worked with PT/OT. Priro to hospitalization, patient was independent in all the mentioned categories below. Per PT records, upon initial evaluation Patient was able to roll in bed, go from sitting to lying and to the side of the bed with supervision/touching assistance. All other aspects of transfers required moderate assistance. She was able to walk up to 15ft with moderate assistance and FWW. She could also use the wheelchair up to 100ft with moderate assistance. It is mentioned that patient was having some confusion/impulsiveness. Stairs were not attempted due to safety concerns. By 09/09 she was making moderate progress and able to go from sitting to standing and toilet transfer with supervision/touching assistance. She could also walk up to 150ft with FWW and take up to 3 steps on the stairs with supervision/touching assistance. She was still having some confusion and needing redirection. Per OT, upon initial evaluation she was able to eat with help setting up and cleaning but required supervision or touching assistance with all other ADL's. By 09/09 she was able to eat independently but still required supervision with all areas of ADL's. SHELBY JOSUE DO 09/10/22 0516: Supervisory-Addendum Brief Verification & Attestation Participated in pt care: history, MDM, physical Personally performed: exam, history, MDM, supervision of care Care discussed with: Medical Student Procedures: n/a Results interpretation: Verified all documentation Verification and Attestation of Medical Student E/M Service A medical student performed and documented this service in my presence. I reviewed and verified all information documented by the medical student and made modifications to such information, when appropriate. I personally performed the physical exam and medical decision making. Shelby Josue Sep 10, 2022,05:16 DENG WELLER Sep 09, 2022 20:06 SHELBY JOSUE DO Sep 10, 2022 05:16
[2022-09-10 05:56] VITALS: BP 105/67
--- NOTE | 2022-09-10 06:56 | PM&R Progress Note ---
Subjective HPI/CC On Admission Date Seen by Provider: Sep 10, 2022 Time Seen by Provider: 09:00 Subjective/Events-last exam 09/10/2022: Doing well overall Set for DC home with HH No pain reported 09/09/2022: No major changes Cognition is the same Frail status 09/08/2022: No major issues Confusion remains Thin and frail 09/07/2022: No major issues Confusion is improved No falls Eating ok 09/06/2022: Patient doing well Confusion still present Spoke to cousin at bedside No falls but increased risk 09/05/2022: Overall stable Frail status BP stable Completing PO abx 09/04/2022: Improved overall No falls Improved ambulation Gaining strength Eating is minimal 09/03/2022: Improved mentation Very frail Participation is good No falls No pain Switched IV abx to PO Review of Systems General: Fatigue, Malaise Neurological: Confusion Objective Exam Vital Signs Vital Signs Date Time Temp Pulse Resp B/P (MAP) Pulse Ox O2 Delivery O2 Flow Rate FiO2 09/10/22 21:00 Room Air 09/10/22 19:18 36.4 83 24 111/56 (74) 93 09/07/22 08:26 21 09/07/22 08:05 0.00 Capillary Refill : General Appearance: No Apparent Distress, WD/WN, Chronically ill HEENT: PERRL/EOMI, Normal ENT Inspection, Pharynx Normal Neck: Full Range of Motion, Normal Inspection, Non Tender, Supple, Carotid Bruit Respiratory: Chest Non Tender, Lungs Clear, Normal Breath Sounds, No Accessory Muscle Use, No Respiratory Distress Cardiovascular: Regular Rate, Rhythm, No Edema, No Gallop, No JVD, No Murmur, Normal Peripheral Pulses Gastrointestinal: Normal Bowel Sounds, No Organomegaly, No Pulsatile Mass, Non Tender, Soft Back: Normal Inspection, No CVA Tenderness, No Vertebral Tenderness Extremity: Normal Capillary Refill, Normal Inspection, Normal Range of Motion, Non Tender, No Calf Tenderness, No Pedal Edema Neurologic/Psychiatric: Alert, Oriented x3, Abnormal Gait, Depressed Affect, Disoriented, Motor Weakness Skin: Normal Color, Warm/Dry Lymphatic: No Adenopathy Results/Procedures Lab Patient resulted labs reviewed. FIM Transfers Therapy Code Descriptions/Definitions Functional [place] Measure: 0=Not Assessed/NA 4=Minimal Assistance 1=Total Assistance 5=Supervision or Setup 2=Maximal Assistance 6=Modified [place] 3=Moderate Assistance 7=Complete IndependenceSCALE: Activities may be completed with or without assistive devices. 6-Jrjcroqjsr-wjvzahc completes the activity by him/herself with no assistance from a helper. 5-Set-up or Clean-up Assistance-helper sets up or cleans up; patient completes activity. [place] assists only prior to or following the activity. 4-Supervision or Touching Assistance-helper provides verbal cues and/or touching/steadying and/or contact guard assistance as patient completes activity. Assistance may be provided throughout the activity or intermittently. 3-Partial/Moderate Assistance-helper does LESS THAN HALF the effort. Lavina lifts, holds or supports trunk or limbs, but provides less than half the effort. 2-Substantial/Maximal Assistance-helper does MORE THAN HALF the effort. Lavina lifts or holds trunk or limbs and provides more than half the effort. 8-Zhnzohulj-qrvqhq does ALL the effort. Patient does none of the effort to complete the activity. Or, the assistance of 2 or more helpers is required for the patient to complete the activity. If activity was not attempted, code reason: 7-Patient Refused. 9-Not Applicable-not attempted and the patient did not perform the activity before the current illness, exacerbation or injury. 10-Not Attempted due to Environmental Limitations-(lack of equipment, weather restraints, etc.). 88-Not Attempted due to Medical Conditions or Safety Concerns. Roll Left to Right (QC): 6 Sit to Lying (QC): 6 Sit to Stand (QC): 4 Chair/Wvm-zs-Rsauc Xfer(QC): 4 (needs assist to move inside walker and turn AD to approach chair or bed safely) Car Transfer (QC): 6 Gait Training Does the Patient Walk?: Yes Walk 10 feet (QC): 4 Walk 50 ft with 2 Turns(QC): 4 Walk 150 ft (QC): 4 Walking 10ft/uneven surface-QC: 88 Gait Persons Needed: 1 Gait Assistive Device: FWW Wheelchair Training Distance: 100' Wheel 50 ft with 2 turns (QC): 3 Wheel 150 ft (QC): 88 Stair Training Stair Training: Handrails/: 2 handrails #of Steps: 3 1 Step (curb) (QC): 4 4 Steps (QC): 88 12 Steps (QC): 88 Balance Picking up an Object (QC): 4 (CGA using a ditching machine operator) ADL-Treatment Eating (QC): 6 Oral Hygiene (QC): 4 (Supervison seated.) Shower/Bathe Self (QC): 4 (CGA) Upper Body Dressing (QC): 4 (Supervision) Lower Body Dressing (QC): 4 (CGA) On/Off Footwear (QC): 4 (Supervision) Toileting Hygiene (QC): 4 (CGA) Toilet Transfer (QC): 4 (CGA) Assessment/Plan Assessment and Plan Assess & Plan/Chief Complaint Assessment: Acute metabolic encephalopathy UTI Advanced age Cachexia Allergies Recent COVID Fall risk Plan: PT OT Increase po nutrition Complete abx 09/03/2022: Improved mentation Frail status Change IV abx to PO 09/04/2022: Increase PO intake Fall risk 09/05/2022: Monitor for falls 09/06/2022: Monitor confusion COVID related decline noted 09/07/2022: Continue aggressive rehab 09/08/2022: Monitor closely 09/09/2022: Monitor closely Fall risk 09/10/2022: Improved overall (1) Encephalopathy acute (2) UTI (urinary tract infection) Status: Acute (3) Debility Status: Acute (4) COPD (chronic obstructive pulmonary disease) Status: Chronic (5) Emaciation Status: Acute (6) Generalized weakness Status: Acute (7) Advanced age (8) DNR (do not resuscitate) ELLIS JOSUE DO Sep 10, 2022 06:56
[2022-09-10 07:39] VITALS: BP 97/56
--- NOTE | 2022-09-10 07:45 | Occupational Ther Daily Note ---
OT Current Status-Daily Note Subjective Pt in bed, eating breakfast. Pt agreeable to OT tx. ADL-Treatment Therapy Code Descriptions/Definitions Functional [place] Measure: 0=Not Assessed/NA 4=Minimal Assistance 1=Total Assistance 5=Supervision or Setup 2=Maximal Assistance 6=Modified [place] 3=Moderate Assistance 7=Complete IndependenceSCALE: Activities may be completed with or without assistive devices. 4-Hgmfhegqrt-sxwnoey completes the activity by him/herself with no assistance from a helper. 5-Set-up or Clean-up Assistance-helper sets up or cleans up; patient completes activity. [address] assists only prior to or following the activity. 4-Supervision or Touching Assistance-helper provides verbal cues and/or touching/steadying and/or contact guard assistance as patient completes activity. Assistance may be provided throughout the activity or intermittently. 3-Partial/Moderate Assistance-helper does LESS THAN HALF the effort. [address] lifts, holds or supports trunk or limbs, but provides less than half the effort. 2-Substantial/Maximal Assistance-helper does MORE THAN HALF the effort. [address] lifts or holds trunk or limbs and provides more than half the effort. 2-Txhdydagu-ahmydg does ALL the effort. Patient does none of the effort to complete the activity. Or, the assistance of 2 or more helpers is required for the patient to complete the activity. If activity was not attempted, code reason: 7-Patient Refused. 9-Not Applicable-not attempted and the patient did not perform the activity before the current illness, exacerbation or injury. 10-Not Attempted due to Environmental Limitations-(lack of equipment, weather restraints, etc.). 88-Not Attempted due to Medical Conditions or Safety Concerns. Eating (QC): 6 Toileting Hygiene (QC): 4 (CGA) Toilet Transfer (QC): 4 Other Treatment Pt in bed eating breakfast, agreeable to OT Tx. Pt able to manipulate and use utensils in order to cut her pancakes and bring food to her mouth, no assistance and no VCS required for task. Pt declined toileting and ADLs at this time, ag reeable to completing puzzles. Pt transferred supine to sit EOB independently, then sit to stand to FWW, CGA. Pt used FWW to transfer to table in [facility] area, [employer]. 100 piece puzzle attempted. OT sorted edge pieces from inside pieces for pt. Pt had difficulty locating 2 pieces that fit together. When OT placed 2 correct pieces in front of pt, pt then able to place pieces together, increased time required with some pieces. Pt easily distracted throughout task, reminiscing on stories from her past and distracted by her coffee. Pt required mod-max VCs to attend to task and continue to attempt puzzle. Overall, pt able to place together ~10 pieces of the puzzle. Pt requests to use bathroom, used FWW to return to her room, CGA. Pt transferred onto toilet, completed toileting with CGA, then used FWW to transfer to recliner. With mobility, pt required CGA and VCs to keep walker with her as pt tended to leave walker off to the side during mobility/transfers. Post tx, pt in recliner, call light in reach and all needs met. Chair alarm activated and telesitter present. Education OT Patient Education: Correct positioning, Energy conservation, Modified ADL techniques, Progress toward Goal/Update tx plan, Purpose of tx/functional activities, Rehab process Teaching Recipient: Patient Teaching Methods: Discussion Response to Teaching: Reinforcement Needed OT Short Term Goals Short Term Goals Time Frame: Sep 19, 2022 Shower/bathe self: 5 Upper body dressin Lower body dressin Putting on/taking off footwear: 5 OT Corporate Strategy Associate Goals Corporate Strategy Associate Goals Time Frame: Sep 26, 2022 Eating (QC): 6 (met) Oral Hygiene (QC): 6 (not met) Toileting Hygiene (QC): 6 (not met) Shower/Bathe Self (QC): 6 (not met) Upper Body Dressing (QC): 6 (not met) Lower Body Dressing (QC): 6 (not met) On/Off Footwear (QC): 6 (not met) Additional Goals: 1-Demonstrate ADL Tasks, 2-Verbalize Understanding, 3- ImproveStrength/Pj 1=Demonstrate adherence to instructed precautions during ADL tasks. 2=Patient will verbalize/demonstrate understanding of assistive devices/modifications for ADL. 3=Patient will improve strength/tolerance for activity to enable patient to perform ADL's. OT Education/Plan Problem List/Assessment Assessment: Decreased Activ Tolerance, Decreased Safety Aware, Decreased UE Strength, Impaired Cognition, Impaired Funct Balance, Impaired I ADL's, Impaired Self-Care Skills Discharge Recommendations Plan/Recommendations: Continue POC Treatment Plan/Plan of Care Patient would benefit from OT for education, treatment and training to promote independence in ADL's, mobility, safety and/or upper extremity function for ADL's. Plan of Care: ADL Retraining, Functional Mobility, Group Exercise/Act as Ind, UE Funct Exercise/Act Treatment Duration: Sep 26, 2022 Frequency: At least 5 of 7 days/Wk (IRF) Estimated Hrs Per Day: 1.5 hours per day Agreement: Yes Rehab Potential: Poor Time Start Time: 07:30 Stop Time: 08:45 DATE: Sep 10, 2022 Total Time Billed (hr/min): 75 Billed Treatment Time 1, ADL 2 (30'), FA 3 (45') PRICILLA JOLLY OT Sep 10, 2022 07:45
[2022-09-10] MEDS: DOCUSATE SODIUM 100 MG (COLACE) CAP PO SCH ×2 (08:47→20:07)
[2022-09-10] MEDS: polyethylene glycoL POWDER 17 GM (MIRALAX) PACK PO SCH ×2 (08:47→20:07)
[2022-09-10] MEDS: SENNOSIDES 8.6 MG (SENOKOT) TAB PO SCH ×2 (08:47→20:07)
[2022-09-10] MEDS: SENNA W/DOCUSATE (SENOKOT S) TABLET PO SCH ×2 (08:47→20:07)
--- NOTE | 2022-09-10 10:11 | Speech Therapy Daily Note ---
Speech Daily Progress Note Subjective Date Seen by Provider: Sep 10, 2022 Time Seen by Provider: 09:00 The patient was seated upright in her recliner, awake and alert, upon entrance to her room by the clinician. The patient greeted the clinician appropriately and was agreeable to participation in the cognitive treatment session. Objective The patient was not oriented to month, year, or day of week. The patient was unable to provide a "close guess or estimate" stating, "I don't know maybe 70 something." The clinician brought the patient's attention to her in-room white board and the orientation information present. The patient stated she is "kind of able" to read the white board with her current vision. The patient continues to report vision difficulty and the clinician highly recommends follow up with optometry following discharge. The patient was encouraged to keep a calendar next to her bed or recliner and check the information frequently following discharge. The patient was provided three words with category cues and asked to recall the words following a five minute delay. The patient was unable to recall the single words and did not recall the clinician providing single words throughout the session. The patient recalled one of three with a category cue. The patient displayed poor functional recall, stating she had not received any visitors or therapy prior to the clinician. With maximum verbal cues for recall of occupa tional therapy, including the therapist name and activity completed, the patient continued to state she had only ate breakfast on this date and had remained in her call "all morning." The clinician repeated home safety information from the session prior in attempts to recall appropriate solutions. Regardless, the patient was unable to appropriately sequence safety steps to a house fire or medical emergency. The patient was unable to recall the emergency contact number with maximum clinician verbal cues provided. The clinician continues to hold concern regarding a safe, independent discharge home. The clinician continues to recommend 24/7 care for the patient's safety. Assessment Assessment Current Status: Poor Progress Treatment Plan Continue Plan of Care Speech Short Term Goals Short Term Goals Short Term Goals 1. The patient will provide appropriate solutions to in-home safety scenarios with 80% accuracy, independently. Time Frame-STG: Five Days. Speech Shelter Goals Directory Compiler Goals 1. The patient will display improved cognitive linguistic communication for safe discharge home to the least restrictive environment. Time Frame: One Week. Speech-Plan Treatment Plan Speech Therapy Treatment Plan: Continue Plan of Care Treatment Duration: Sep 04, 2022 Frequency: Modified Program (IRF) (Three to ) Estimated Hrs Per Day: Other Rehab Potential: Poor Pt/Family Agrees to Plan: Yes Safety Risks/Education Teaching Recipient: Patient Teaching Methods: Discussion Response to Teaching: Unable to Comprehend Education Topics Provided: Home Safety Problem Solving and Sequencing, Orientation Strategies Time Speech Therapy Time In: 09:00 Speech Therapy Time Out: 09:30 DATE: Sep 10, 2022 Total Billed Time: 30 Billed Treatment Time 1, ELIER KOLB Sep 10, 2022 10:11
--- NOTE | 2022-09-10 10:39 | Therapy Team Discharge Summary ---
Therapy Discharge Summary Discharge Recommendations Date of Discharge Physical Therapy Roll Left to Right (QC): 6 Sit to Lying (QC): 6 Lying to Sitting/Side of Bed(Q: 6 Sit to Stand (QC): 4 Chair/Bdl-og-Hrkix Xfer(QC): 4 (needs assist to move inside walker and turn AD to approach chair or bed safely) Toilet Transfer (QC): 4 Car Transfer (QC): 6 Does the Patient Walk: Yes Mode of Locomotion: Walk Anticipated Mode of Locomotion: Walk Walk 10 feet (QC): 4 Walk 50 ft with 2 Turns(QC): 4 Walk 150 ft (QC): 4 Walking 10ft on uneven surface: 88 Distance: 15' Gait Assistive Device: FWW Wheelchair Distance: 100' Wheel 50 ft with 2 turns (QC): 3 Wheel 150 ft (QC): 88 #of Steps: 3 1 Step (curb) (QC): 4 4 Steps (QC): 88 12 Steps (QC): 88 Balance Sitting Static: Normal Balance Sitting Dynamic: Normal Balance-Standing Static: Fair Picking up an Object (QC): 4 (CGA using a manufacturing operations manager) Occupational Therapy Decreased Activ Tolerance, Decreased Safety Aware, Decreased UE Strength, Impaired Cognition, Impaired Funct Balance, Impaired I ADL's, Impaired Self-Care Skills Eating (QC): 6 Oral Hygiene (QC): 4 (Supervison seated.) Shower/Bathe Self (QC): 4 (CGA) Upper Body Dressing (QC): 4 (Supervision) Lower Body Dressing (QC): 4 (CGA) On/Off Footwear (QC): 4 (Supervision) Toileting Hygiene (QC): 4 (CGA) Speech-Language Pathology The patient will discharge from the acute rehabilitation unit on 09/11/22. At this time, the patient has displayed zero progress towards cognitive communication goals and remains at a safety risk to herself with independent discharge home. ST continues to recommend 05/01 supervision. PT Residential Goals Maintenance Technician Goals PT Maintenance Technician Goals Time Frame: Sep 16, 2022 Roll Left to Right (QC): 6 Sit to Lying (QC): 6 Lying-Sitting on Side/Bed(QC): 6 Sit to Stand (QC): 4 Chair/Xue-yy-Fekza Xfer(QC): 4 Toilet/Commode Transfer (QC): 4 Car Transfer (QC): 4 Does the Patient Walk: Yes Walk 10 feet (QC): 4 Walk 10ft-Uneven Surface(QC): 4 Walk 50ft with 2 Turns (QC): 4 Walk 150 ft (QC): 4 Wheel 50 feet with 2 turns (QC: 6 Wheel 150 feet: 6 1 Step (curb) (QC): 4 4 Steps (QC): 4 12 Steps (QC): 88 Picking up an Object (QC): 4 OT Residential Goals Residential Goals Time Frame: Sep 26, 2022 Eating (QC): 6 (met) Oral Hygiene (QC): 6 (not met) Toileting Hygiene (QC): 6 (not met) Shower/Bathe Self (QC): 6 (not met) Upper Body Dressing (QC): 6 (not met) Lower Body Dressing (QC): 6 (not met) On/Off Footwear (QC): 6 (not met) Additional Goals: 1-Demonstrate ADL Tasks, 2-Verbalize Understanding, 3- ImproveStrength/Pj 1=Demonstrate adherence to instructed precautions during ADL tasks. 2=Patient will verbalize/demonstrate understanding of assistive devices/modifications for ADL. 3=Patient will improve strength/tolerance for activity to enable patient to perform ADL's. Speech Residential Goals Maintenance Technician Goals 1. The patient will display improved cognitive linguistic communication for safe discharge home to the least restrictive environment. NOT MET: At this time, the patient has displayed zero progress towards cognitive communication goals and remains at a safety risk to herself with independent discharge home. ST continues to recommend 24/7 supervision. Time Frame: One Week. ELIER IBARRA Sep 10, 2022 10:39
--- NOTE | 2022-09-10 10:43 | Physical Therapy Daily Note ---
PT Daily Note-Current Subjective Pt. agrees to Rx with much encouragement all along the way. Pt. c/o occas about leg and low back pain and agrees to take Tylenol after suggested by a family member. Pain Numeric Pain Scale: 5-Moderate Pain Location: Left (and right) Location Body Site: Thigh (HIP AND CALF) Pain Description: Ache Section J - Health Conditions 1. Rarely or not at all 2. Occasionally 3. Frequently 4. Almost constantly 8. Unable to answer Pain Effect on Sleep: 1 Pain Interference with Therapy: 3 Pain Interference w/Day-to-Day: 2 Mental Status Patient Orientation: Confused Transfers SCALE: Activities may be completed with or without assistive devices. 9-Mapwxxrmkj-vtikwhg completes the activity by him/herself with no assistance from a helper. 5-Set-up or Clean-up Assistance-helper sets up or cleans up; patient completes activity. [place]en assists only prior to or following the activity. 4-Supervision or Touching Assistance-helper provides verbal cues and/or usha gerald/steadying and/or contact guard assistance as patient completes activity. Assistance may be provided throughout the activity or intermittently. 3-Partial/Moderate Assistance-helper does LESS THAN HALF the effort. K[place]en lifts, holds or supports trunk or limbs, but provides less than half the effort. 2-Substantial/Maximal Assistance-helper does MORE THAN HALF the effort. [place]en lifts or holds trunk or limbs and provides more than half the effort. 3-Iwjrazfny-sqrshv does ALL the effort. Patient does none of the effort to complete the activity. Or, the assistance of 2 or more helpers is required for the patient to complete the activity. If activity was not attempted, code reason: 7-Patient Refused. 9-Not Applicable-not attempted and the patient did not perform the activity before the current illness, exacerbation or injury. 10-Not Attempted due to Environmental Limitations-(lack of equipment, weather restraints, etc.). 88-Not Attempted due to Medical Conditions or Safety Concerns. Roll Left & Right (QC): 6 Sit to Lying (QC): 6 Lying to Sitting/Side of Bed(Q: 6 Sit to Stand (QC): 6 Chair/Eqw-yg-Bemzi Xfer(QC): 6 Toilet Transfer (QC): 6 Car Transfer (QC): 6 Weight Bearing Full Weight Bearing Full Weight Bearing Gait Training Does the Patient Walk?: Yes Walk 10 feet (QC): 4 Walk 50 ft with 2 Turns(QC): 4 Walking 10ft/uneven surface-QC: 4 Gait Persons Needed: 1 Gait Assistive Device: FWW Pt requires cuing for safe position in FWW as well as manuevering it for turns yanely in bthrm and tight spaces for safety etc. pt. c/o bilat leg discomfort before completing 150 ft. Pt. ambulated 75ft x 3, 100ft x 1 CGA and cues for direction and safe walker position Stair Training Stair Training: Handrails/: 2 handrails #of Steps: 4 1 Step (curb) (QC): 3 4 Steps (QC): 4 12 Steps (QC): 77 Stairs: Pattern: Step to slow, heavy wt bearing on rails and much instruction for hand and foot placement and sequence Balance Picking up an Object (QC): 4 Exercises Supine Ex: Quad Set, Rolling, Heel Slides, Straight leg raise, Hip abd/add Supine Reps: 12 Seated Therapy Exercises: Ankle pumps, Sit to stand, Long arc quads, Hip flexion Seated Reps: 15 (x2) Treatments QC, gait, TRFs, Assessment Current Status: Good Progress has made noted progress but safety will require FT superv/ assist PT Senior Graphic Designer Goals Assisted Goals PT Senior Graphic Designer Goals Time Frame: Sep 16, 2022 Roll Left & Right (QC): 6 Sit to Lying (QC): 6 Lying-Sitting on Side/Bed(QC): 6 Sit to Stand (QC): 4 Chair/Agf-ec-Twibr Xfer(QC): 4 Toilet Transfer (QC): 4 Car Transfer (QC): 4 Does the Patient Walk: Yes Walk 10 feet (QC): 4 Walk 50ft with 2 Turns (QC): 4 Walk 150 ft (QC): 4 Walking 10ft on Uneven Surface: 4 1 Step (curb) (QC): 4 4 Steps (QC): 4 12 Steps (QC): 88 Picking up an Object (QC): 4 Wheel 50 feet with 2 turns (QC: 6 Wheel 150 feet: 6 PT Plan Treatment/Plan Treatment Plan: Continue Plan of Care Treatment Plan: Bed Mobility, Education, Functional Activity Pj, Functional Strength, Group Therapy, Gait, Safety, Therapeutic Exercise, Transfers Treatment Duration: Sep 16, 2022 Frequency: At least 5 of 7 days/Wk (IRF) Estimated Hrs Per Day: 1.5 hours per day Patient and/or Family Agrees t: Yes Safety Risks/Education Patient Education: Gait Training, Transfer Techniques, Steps, Correct Positioning, Safety Issues Teaching Recipient: Patient Teaching Methods: Demonstration, Discussion Response to Teaching: Verbalize Understanding, Return Demonstration, Reinforcement Needed Time Time In: 930 Time Out: 1045 DATE: Sep 10, 2022 Total Billed Treatment Time: 75 Total Billed Treatment 1,GT25m,FA35m,EX15m KAE SHAH STATISTICAL REPORTING ANALYST Sep 10, 2022 10:43
[2022-09-10] MEDS: ACETAMINOPHEN 325 MG TABLET PO PRN (10:44)
[2022-09-10] MEDS: ENOXAPARIN INJECTION 30 MG/0.3 ML SYR SC SCH (10:46)
[2022-09-10 19:18] VITALS: BP 111/56
--- NOTE | 2022-09-11 05:30 | Discharge Summary ---
Diagnosis/Chief Complaint Date of Admission Sep 02, 2022 at 13:40 Date of Discharge Discharge Date: Sep 11, 2022 Discharge Diagnosis Assessment: Acute metabolic encephalopathy UTI Advanced age Cachexia Allergies Recent COVID Fall risk Plan: PT OT Increase po nutrition Complete abx 09/03/2022: Improved mentation Frail status Change IV abx to PO 09/04/2022: Increase PO intake Fall risk 09/05/2022: Monitor for falls 09/06/2022: Monitor confusion COVID related decline noted 09/07/2022: Continue aggressive rehab 09/08/2022: Monitor closely 09/09/2022: Monitor closely Fall risk 09/10/2022: Improved overall (1) Encephalopathy acute (2) UTI (urinary tract infection) Status: Acute (3) Debility Status: Acute (4) COPD (chronic obstructive pulmonary disease) Status: Chronic (5) Emaciation Status: Acute (6) Generalized weakness Status: Acute (7) Advanced age (8) DNR (do not resuscitate) ELLIS JOSUE DO Discharge Summary Discharge Physical Examination Allergies: Coded Allergies: No Known Drug Allergies (Unverified , 09/02/22) Vitals & I&Os Vital Signs Date Time Temp Pulse Resp B/P (MAP) Pulse Ox O2 Delivery O2 Flow Rate FiO2 09/11/22 08:51 96 Room Air 09/11/22 08:00 36.3 75 14 146/62 (90) 09/07/22 08:26 21 09/07/22 08:05 0.00 General Appearance: Alert, Oriented X3, Cooperative, Other (poor recall) Respiratory: Clear to Auscultation Cardiovascular: Regular Rate Psych/Mental Status: Mental Status NL Hospital Course Was the Problem List Reviewed?: Yes Rehab Course Francine Ramsay is a 87 year old female who was admitted to the [facility] rehab unit from 09/02-09/11 following encephalopathy and weakness following an admission for UTI and recent COVID. During her stay she worked with PT/OT. Prior to hospitalization, patient was independent at home with activities. Per PT records, upon initial evaluation Patient was able to roll in bed, go from sitting to lying and to the side of the bed with supervision/touching assistance. All other aspects of transfers required moderate assistance. She was able to walk up to 15ft with moderate assistance and FWW. She could also use the wheelchair up to 100ft with moderate assistance. It is mentioned that patient was having some confusion/impulsiveness. Stairs were not attempted due to safety concerns. By 09/11 had made good progress and she was independent in all categories of transferring. She could walk up to 50ft with 2 turns with supervision/light touching and the use of a FWW as well as walk 10 feet on an uneven surface. She was able to take up to 4 steps on the stairs with supervision. Per OT records, upon initial evaluation she was able to eat with help setting up and cleaning but required supervision or touching assistance with all other ADL's. By 09/11 she was able to eat independently but still required superv ision/touching assistance with all other areas of ADL's. DENG WELLER Labs (last 24 hrs) Laboratory Tests 09/03/22 05:19: White Blood Count 7.8, Red Blood Count 2.98L, Hemoglobin 9.1L, Hematocrit 27L, Mean Corpuscular Volume 91, Mean Corpuscular Hemoglobin 31, Mean Corpuscular Hemoglobin Concent 34, Red Cell Distribution Width 14.4, Platelet Count 268, Mean Platelet Volume 9.6, Immature Granulocyte % (Auto) 1, Neutrophils (%) (Auto) 68, Lymphocytes (%) (Auto) 19, Monocytes (%) (Auto) 7, Eosinophils (%) (Auto) 4, Basophils (%) (Auto) 0, Neutrophils # (Auto) 5.3, Lymphocytes # (Auto) 1.5, Monocytes # (Auto) 0.6, Eosinophils # (Auto) 0.3, Basophils # (Auto) 0.0, Immature Granulocyte # (Auto) 0.1, Sodium Level 139, Potassium Level 3.8, Chloride Level 104, Carbon Dioxide Level 25, Anion Gap 10, Blood Urea Nitrogen 9, Creatinine 0.76, Estimat Glomerular Filtration Rate 76, BUN/Creatinine Ratio 12, Glucose Level 97, Calcium Level 8.3L, Corrected Calcium 9.6, Total Bilirubin 0.4, Aspartate Amino Transf (AST/SGOT) 16, Alanine Aminotransferase (ALT/SGPT) 23, Alkaline Phosphatase 70, Total Protein 5.4L, Albumin 2.4L 09/08/22 05:37: White Blood Count 8.3, Red Blood Count 2.90L, Hemoglobin 8.8L, Hematocrit 27L, Mean Corpuscular Volume 93, Mean Corpuscular Hemoglobin 30, Mean Corpuscular Hemoglobin Concent 33, Red Cell Distribution Width 14.7H, Platelet Count 444H, Mean Platelet Volume 9.0, Immature Granulocyte % (Auto) 5, Neutrophils (%) (Auto) 54, Lymphocytes (%) (Auto) 27, Monocytes (%) (Auto) 8, Eosinophils (%) (Auto) 5, Basophils (%) (Auto) 1, Neutrophils # (Auto) 4.5, Lymphocytes # (Auto) 2.2, Monocytes # (Auto) 0.7, Eosinophils # (Auto) 0.4H, Basophils # (Auto) 0.1, Immature Granulocyte # (Auto) 0.4H, Sodium Level 139, Potassium Level 4.4, Chloride Level 105, Carbon Dioxide Level 24, Anion Gap 10, Blood Urea Nitrogen 11, Creatinine 0.86, Estimat Glomerular Filtration Rate 65, BUN/Creatinine Ratio 13, Glucose Level 89, Calcium Level 8.7, Corrected Calcium 9.7, Total Bilirubin 0.3, Aspartate Amino Transf (AST/SGOT) 12, Alanine Aminotransferase (ALT/SGPT) 15, Alkaline Phosphatase 68, Total Protein 5.7L, Albumin 2.7L Pending Labs Laboratory Tests 09/03/22 05:19: White Blood Count 7.8, Red Blood Count 2.98, Hemoglobin 9.1, Hematocrit 27, Mean Corpuscular Volume 91, Mean Corpuscular Hemoglobin 31, Mean Corpuscular Hemoglobin Concent 34, Red Cell Distribution Width 14.4, Platelet Count 268, Mean Platelet Volume 9.6, Immature Granulocyte % (Auto) 1, Neutrophils (%) (Auto) 68, Lymphocytes (%) (Auto) 19, Monocytes (%) (Auto) 7, Eosinophils (%) (Auto) 4, Basophils (%) (Auto) 0, Neutrophils # (Auto) 5.3, Lymphocytes # (Auto) 1.5, Monocytes # (Auto) 0.6, Eosinophils # (Auto) 0.3, Basophils # (Auto) 0.0, Immature Granulocyte # (Auto) 0.1, Sodium Level 139, Potassium Level 3.8, Chloride Level 104, Carbon Dioxide Level 25, Anion Gap 10, Blood Urea Nitrogen 9, Creatinine 0.76, Estimat Glomerular Filtration Rate 76, BUN/Creatinine Ratio 12, Glucose Level 97, Calcium Level 8.3, Corrected Calcium 9.6, Total Bilirubin 0.4, Aspartate Amino Transf (AST/SGOT) 16, Alanine Aminotransferase (ALT/SGPT) 23, Alkaline Phosphatase 70, Total Protein 5.4, Albumin 2.4 09/08/22 05:37: White Blood Count 8.3, Red Blood Count 2.90, Hemoglobin 8.8, Hematocrit 27, Mean Corpuscular Volume 93, Mean Corpuscular Hemoglobin 30, Mean Corpuscular Hemoglobin Concent 33, Red Cell Distribution Width 14.7, Platelet Count 444, Nicki n Platelet Volume 9.0, Immature Granulocyte % (Auto) 5, Neutrophils (%) (Auto) 54, Lymphocytes (%) (Auto) 27, Monocytes (%) (Auto) 8, Eosinophils (%) (Auto) 5, Basophils (%) (Auto) 1, Neutrophils # (Auto) 4.5, Lymphocytes # (Auto) 2.2, Monocytes # (Auto) 0.7, Eosinophils # (Auto) 0.4, Basophils # (Auto) 0.1, Immature Granulocyte # (Auto) 0.4, Sodium Level 139, Potassium Level 4.4, Chloride Level 105, Carbon Dioxide Level 24, Anion Gap 10, Blood Urea Nitrogen 11, Creatinine 0.86, Estimat Glomerular Filtration Rate 65, BUN/Creatinine Ratio 13, Glucose Level 89, Calcium Level 8.7, Corrected Calcium 9.7, Total Bilirubin 0.3, Aspartate Amino Transf (AST/SGOT) 12, Alanine Aminotransferase (ALT/SGPT) 15, Alkaline Phosphatase 68, Total Protein 5.7, Albumin 2.7 Discharge Home Medications: Active Scripts Active Reported Allergy Relief (Loratadine) 10 Mg Tablet 10 Mg PO DAILY Tylenol (Acetaminophen) 325 Mg Tablet 650 Mg PO Q6H PRN Instructions to patient/family Please see electronic discharge instructions given to patient. Diagnosis/Problems Diagnosis/Problems (1) Encephalopathy acute (2) UTI (urinary tract infection) Status: Acute (3) Debility Status: Acute (4) COPD (chronic obstructive pulmonary disease) Status: Chronic (5) Emaciation Status: Acute (6) Generalized weakness Status: Acute (7) Advanced age (8) DNR (do not resuscitate) ELLIS JOSUE DO Sep 11, 2022 05:30
--- NOTE | 2022-09-11 05:30 | D/C HH Face to Face Order ---
D/C Face to Face Orders Reconcile Patient Problems Problems Reviewed?: Yes Instructions for Patient Via [facility], Patient Instructions/FollowUp: PCP as scheduled Physician to follow Patient: [facility] Discharge Diet for Home: No Restrictions Patient Problems: Debility Dementia Patient Data-Allergies,Ht & Wt Patient Allergies: Coded Allergies: No Known Drug Allergies (Unverified , 09/02/22) Home Health Need/Face to Face Date of Face to Face: Sep 11, 2022 Clinical Findings: Generalized weakness and fatigue, Instability, Muscle weakness I have seen Pt ujku-bj-cugz: Yes Discharged To: Home Diagnosis/Conditions: Debility Patient is Homebound due to: CognItive deficits, Muscle weakness Homebound Status Due to the above stated illness, injury or surgical procedure (medical condition or diagnosis) and associated clinical findings, the patient is homebound because of his/her inability to leave home except with aid of a supportive device and/or person AND leaving the home requires a considerable and taxing effort or is medically contraindicated. Pt req the following assistanc: Walker Home Health Nursing Orders Home Health Services Order: Nursing Services, Workforce Management Consultant-Evaluate & Treat, Physical Therapy-Evaluate & Treat, Speech Language-Evaluate & Treat Certify Stmt I certify that this patient is under my care and that I, a nurse practitioner or a physician; a marketing support assistant working with me, had a face to face encounter that - meets the physician face to face encounter requirements with this patient as dated. ELLIS JOSUE DO Sep 11, 2022 05:30
[2022-09-11 08:00] VITALS: BP 146/62
[2022-09-11] MEDS: SENNA W/DOCUSATE (SENOKOT S) TABLET PO SCH (08:26)
[2022-09-11] MEDS: SENNOSIDES 8.6 MG (SENOKOT) TAB PO SCH (08:26)
[2022-09-11] MEDS: polyethylene glycoL POWDER 17 GM (MIRALAX) PACK PO SCH (08:26)
[2022-09-11] MEDS: DOCUSATE SODIUM 100 MG (COLACE) CAP PO SCH (08:26)
[2022-09-11] MEDS: ENOXAPARIN INJECTION 30 MG/0.3 ML SYR SC SCH (11:15)
--- NOTE | 2022-09-11 11:45 | Progress Note ---
DENG WELLER 09/11/22 1145: Progress Note Rehab Course Francine Ramsay is a 87 year old female who was admitted to the [facility] rehab unit from 09/02-09/11 following encephalopathy and weakness following an admission for UTI and recent COVID. During her stay she worked with PT/OT. Prior to hospitalization, patient was independent at home with activities. Per PT records, upon initial evaluation Patient was able to roll in bed, go from sitting to lying and to the side of the bed with supervision/touching assistance. All other aspects of transfers required moderate assistance. She was able to walk up to 15ft with moderate assistance and FWW. She could also use the wheelchair up to 100ft with moderate assistance. It is mentioned that patient was having some confusion/impulsiveness. Stairs were not attempted due to safety concerns. By 09/11 had made good progress and she was independent in all categories of transferring. She could walk up to 50ft with 2 turns with supervision/light touching and the use of a FWW as well as walk 10 feet on an uneven surface. She was able to take up to 4 steps on the stairs with supervision. Per OT records, upon initial evaluation she was able to eat with help setting up and cleaning but required supervision or touching assistance with all other ADL's. By 09/11 she was able to eat independently but still required supervis ion/touching assistance with all other areas of ADL's. SHELBY JOSUE DO 09/12/22 0528: Supervisory-Addendum Brief Verification & Attestation Participated in pt care: history, MDM, physical Personally performed: exam, history, MDM, supervision of care Care discussed with: Medical Student Procedures: n/a Results interpretation: Verified all documentation Verification and Attestation of Medical Student E/M Service A medical student performed and documented this service in my presence. I reviewed and verified all information documented by the medical student and made modifications to such information, when appropriate. I personally performed the physical exam and medical decision making. Shelby Josue Sep 12, 2022,05:28 DENG WELLER Sep 11, 2022 11:45 SHELBY JOSUE DO Sep 12, 2022 05:28
--- NOTE | 2022-09-12 08:08 | Therapy Team Discharge Summary ---
Therapy Discharge Summary Discharge Recommendations Date of Discharge Sep 11, 2022 at 13:00 Physical Therapy Patient received PT services s/p UTI/sepsis/encephalopathy. Rolling and supine <-> sit SBA, sit <-> stand and transfers CGA wiht FWW. Gait 125' with FWW CGA, up/down 2 steps with (B) rails CGA. Confusion persists. Will need 24 hour supervision for safety which patient is going to provide thru personal caregivers. Roll Left to Right (QC): 6 Sit to Lying (QC): 6 Lying to Sitting/Side of Bed(Q: 6 Sit to Stand (QC): 4 Chair/Khn-wr-Dznto Xfer(QC): 4 Toilet Transfer (QC): 4 Car Transfer (QC): 4 Does the Patient Walk: Yes Mode of Locomotion: Walk Anticipated Mode of Locomotion: Walk Walk 10 feet (QC): 4 Walk 50 ft with 2 Turns(QC): 4 Walk 150 ft (QC): 4 Walking 10ft on uneven surface: 4 Distance: 125-160' per documenttion Gait Assistive Device: FWW Does the Pt Use a Wheelchair: Yes Wheelchair Distance: 150' Wheel 50 ft with 2 turns (QC): 3 Wheel 150 ft (QC): 5 Type of Wheelchair: Manual #of Steps: 4 1 Step (curb) (QC): 4 4 Steps (QC): 4 12 Steps (QC): 88 Balance Sitting Static: Normal Balance Sitting Dynamic: Normal Balance-Standing Static: Fair Picking up an Object (QC): 4 Occupational Therapy Decreased Activ Tolerance, Decreased Safety Aware, Decreased UE Strength, Impaired Cognition, Impaired Funct Balance, Impaired I ADL's, Impaired Self-Care Skills Eating (QC): 6 Oral Hygiene (QC): 4 (Supervison seated.) Shower/Bathe Self (QC): 4 (CGA) Upper Body Dressing (QC): 4 (Supervision) Lower Body Dressing (QC): 4 (CGA) On/Off Footwear (QC): 4 (Supervision) Toileting Hygiene (QC): 4 (CGA) PT Assisted Goals Form Layer Goals PT Assisted Goals Time Frame: Sep 16, 2022 Roll Left to Right (QC): 6 Sit to Lying (QC): 6 Lying-Sitting on Side/Bed(QC): 6 Sit to Stand (QC): 4 Chair/Ojm-yv-Hgdnb Xfer(QC): 4 Toilet/Commode Transfer (QC): 4 Car Transfer (QC): 4 Does the Patient Walk: Yes Walk 10 feet (QC): 4 Walk 10ft-Uneven Surface(QC): 4 Walk 50ft with 2 Turns (QC): 4 Walk 150 ft (QC): 4 Wheel 50 feet with 2 turns (QC: 6 Wheel 150 feet: 6 1 Step (curb) (QC): 4 4 Steps (QC): 4 12 Steps (QC): 88 Picking up an Object (QC): 4 OT Form Layer Goals Form Layer Goals Time Frame: Sep 26, 2022 Eating (QC): 6 (met) Oral Hygiene (QC): 6 (not met) Toileting Hygiene (QC): 6 (not met) Shower/Bathe Self (QC): 6 (not met) Upper Body Dressing (QC): 6 (not met) Lower Body Dressing (QC): 6 (not met) On/Off Footwear (QC): 6 (not met) Additional Goals: 1-Demonstrate ADL Tasks, 2-Verbalize Understanding, 3- ImproveStrength/Pj 1=Demonstrate adherence to instructed precautions during ADL tasks. 2=Patient will verbalize/demonstrate understanding of assistive devices/modifi cations for ADL. 3=Patient will improve strength/tolerance for activity to enable patient to perform ADL's. Speech Form Layer Goals Form Layer Goals 1. The patient will display improved cognitive linguistic communication for safe discharge home to the least restrictive environment. NOT MET: At this time, the patient has displayed zero progress towards cognitive communication goals and remains at a safety risk to herself with independent discharge home. ST continues to recommend 24/ supervision. Time Frame: One Week. Camilla Robert PT Sep 12, 2022 08:08
--- NOTE | 2022-09-13 08:59 | Therapy Team Discharge Summary ---
Therapy Discharge Summary Discharge Recommendations Date of Discharge Sep 11, 2022 at 13:00 Therapy D/C Recommendations: 24 hr Supervision Physical Therapy Roll Left to Right (QC): 6 Sit to Lying (QC): 6 Lying to Sitting/Side of Bed(Q: 6 Sit to Stand (QC): 4 Chair/Dwi-ul-Dxchx Xfer(QC): 4 Toilet Transfer (QC): 4 Car Transfer (QC): 4 Does the Patient Walk: Yes Mode of Locomotion: Walk Anticipated Mode of Locomotion: Walk Walk 10 feet (QC): 4 Walk 50 ft with 2 Turns(QC): 4 Walk 150 ft (QC): 4 Walking 10ft on uneven surface: 4 Distance: 125-160' per documenttion Gait Assistive Device: FWW Does the Pt Use a Wheelchair: Yes Wheelchair Distance: 150' Wheel 50 ft with 2 turns (QC): 3 Wheel 150 ft (QC): 5 Type of Wheelchair: Manual #of Steps: 4 1 Step (curb) (QC): 4 4 Steps (QC): 4 12 Steps (QC): 88 Balance Sitting Static: Normal Balance Sitting Dynamic: Normal Balance-Standing Static: Fair Picking up an Object (QC): 4 Occupational Therapy Pt admitted to ARU with metabolic encephalopathy. At [facility], pt was independent with most ADLS, requiring supervision with showering. Upon initial evaluation, pt required set up with eating, supervision with oral care, UE dressing and peyton twear and CGA showering, LE Dressing and toileting. OT tx focused on increasing BUE Strength and activity tolerance, and increasing safety and independence with ADLS and functional mobility. Pt improved eating from set up to independent, but didn't progress other ADLs due to cognitive status, difficulty following instructions and being easily distracted throughout tx. Pt discharged home with 24 hour support, d/c from OT. Decreased Activ Tolerance, Decreased Safety Aware, Decreased UE Strength, Impaired Cognition, Impaired Funct Balance, Impaired I ADL's, Impaired Self-Care Skills Eating (QC): 6 Oral Hygiene (QC): 4 (Supervison seated.) Shower/Bathe Self (QC): 4 (CGA) Upper Body Dressing (QC): 4 (Supervision) Lower Body Dressing (QC): 4 (CGA) On/Off Footwear (QC): 4 (Supervision) Toileting Hygiene (QC): 4 (CGA) PT Mcc Goals Moving Picture Producer Goals PT Mcc Goals Time Frame: Sep 16, 2022 Roll Left to Right (QC): 6 Sit to Lying (QC): 6 Lying-Sitting on Side/Bed(QC): 6 Sit to Stand (QC): 4 Chair/Iwo-wc-Efcxh Xfer(QC): 4 Toilet/Commode Transfer (QC): 4 Car Transfer (QC): 4 Does the Patient Walk: Yes Walk 10 feet (QC): 4 Walk 10ft-Uneven Surface(QC): 4 Walk 50ft with 2 Turns (QC): 4 Walk 150 ft (QC): 4 Wheel 50 feet with 2 turns (QC: 6 Wheel 150 feet: 6 1 Step (curb) (QC): 4 4 Steps (QC): 4 12 Steps (QC): 88 Picking up an Object (QC): 4 OT Moving Picture Producer Goals Moving Picture Producer Goals Time Frame: Sep 26, 2022 Eating (QC): 6 (met) Oral Hygiene (QC): 6 (not met) Toileting Hygiene (QC): 6 (not met) Shower/Bathe Self (QC): 6 (not met) Upper Body Dressing (QC): 6 (not met) Lower Body Dressing (QC): 6 (not met) On/Off Footwear (QC): 6 (not met) Additional Goals: 1-Demonstrate ADL Tasks, 2-Verbalize Understanding, 3- ImproveStrength/Pj 1=Demonstrate adherence to instructed precautions during ADL tasks. 2=Patient will verbalize/demonstrate understanding of assistive devices/modifications for ADL. 3=Patient will improve strength/tolerance for activity to enable patient to perform ADL's. Speech Mcc Goals Moving Picture Producer Goals 1. The patient will display improved cognitive linguistic communication for safe discharge home to the least restrictive environment. NOT MET: At this time, the patient has displayed zero progress towards cognitive communication goals and remains at a safety risk to herself with independent discharge home. ST co ntinues to recommend 24/ supervision. Time Frame: One Week. PRICILLA JOLLY OT Sep 13, 2022 08:59
== END 2022-09-11 13:00 | disposition home health service (06) | DRG 71 ==
PROVIDERS: ADMIT Internal Medicine; ATTEND Internal Medicine
DX: G93.41 Metabolic encephalopathy (principal); N39.0 Urinary tract infection, site not specified; R64 Cachexia; Z68.1 Body mass index [BMI] 19.9 or less, adult; R54 Age-related physical debility; Z66 Do not resuscitate; J44.9 Chronic obstructive pulmonary disease, unspecified; R26.9 Unspecified abnormalities of gait and mobility; Z91.81 History of falling; Z86.16 Personal history of COVID-19
CPT/HCPCS: 36415; 80053; 85025; 94640; 94664; 94760